=== PATIENT | female | born 1960 | race Caucasian/White ===

== ENCOUNTER → 2016-08-11 | Outpatient (CLI) | payer OTHER ==
[~2016-08-11] MED LIST: ASP325T PO; CANA100T PO; CHOL5000 PO; CLN.1T PO; DOXY100C42 PO; FENO145T2 PO; GEMF600T3 PO; HCT25T PO; IBUP-30 PO; MECL-106 PO; METF1000 PO; METH4TAB PO; METO50TA7 PO; MTF500T PO; NFNEB10T PO; OMEP-10 PO; OXYC-199 PO; PANT40TA3 PO; POTA20TA15 PO; SCOP1PAT TD; VERA240C2 PO; VLS80C PO
--- OUTSIDE RECORDS SUMMARY | 2016-08-11 08:16 | XMS REPORT | Continuity of Care Document ---
Demographics Preferred Language Unknown Marital Status Unknown Taoism Affiliation Unknown Race Unknown Ethnic Group Unknown Author Author [facility] Address Unknown Phone Unavailable Allergies Active Description Code Type Severity Reaction Onset Reported/Identified Relationship to Patient Clinical Status Yes stadol/bad reaction stadol/bad reaction Severe "a bad reaction 11/27/2009 Yes aleve and celebrex aleve and celebrex Mild " facial numbnes 11/27/2009 Yes butorphanol [id number] Drug Allergy Severe "BAD REACTION" 10/17/2015 Yes celecoxib [id number] Drug Allergy Severe FACIAL NUMBNESS 10/17/2015 Yes naproxen [id number] Drug Allergy Severe FACIAL NUMBNESS 10/17/2015 Yes codeine [id number] Drug Allergy Moderate "itch" 10/17/2015 Medications Problems Date Dx Coded Attending Type Code Diagnosis Diagnosed By 08/18/2009 Ot 401.0 10/10/2009 Ot 327.23 10/10/2009 Ot 401.9 10/10/2009 Ot 716.90 10/10/2009 Ot 729.1 10/22/2009 Ot 327.23 11/28/2009 Ot 241.0 11/28/2009 Ot 268.9 11/28/2009 Ot 272.4 11/28/2009 Ot 275.2 11/28/2009 Ot 278.01 11/28/2009 Ot 280.9 11/28/2009 Ot 327.23 11/28/2009 Ot 401.0 11/28/2009 Ot 530.81 11/28/2009 Ot 710.4 11/28/2009 Ot 714.0 11/28/2009 Ot 785.1 11/28/2009 Ot 786.59 11/28/2009 Ot V85.4 03/30/2010 Ot 530.81 03/30/2010 Ot 535.40 03/30/2010 Ot 787.91 05/05/2012 V06.1 TDAP DX 06/25/2013 ROJELIO LONGORIA DO Ot 401.9 07/05/2013 KAYLIE COOPER DO Ot 719.40 07/05/2013 KAYLIE COOPER DO Ot V57.1 07/18/2014 Ot 789.01 07/18/2014 Ot 789.1 07/18/2014 Ot 620.2 07/18/2014 Ot V76.12 07/18/2014 Ot 789.00 07/18/2014 Ot 401.9 07/18/2014 Ot 785.1 07/18/2014 Ot 786.50 07/18/2014 Ot 401.0 07/18/2014 Ot 620.2 07/18/2014 Ot 241.0 07/18/2014 Ot 435.2 07/18/2014 Ot 401.0 07/18/2014 Ot 620.2 07/18/2014 Ot 272.4 07/18/2014 Ot 280.9 07/18/2014 Ot 401.9 07/18/2014 Ot 716.90 07/18/2014 Ot 790.5 07/18/2014 Ot V58.69 07/18/2014 Ot 789.03 07/18/2014 Ot 346.90 07/18/2014 Ot 782.0 07/18/2014 Ot 241.0 07/18/2014 Ot 724.2 07/18/2014 JARROD GRADY APRN Ot 722.4 07/18/2014 KAYLIE COOPER DO Ot 722.91 07/18/2014 KAYLIE COOPER DO Ot 530.5 07/18/2014 KAYLIE COOPER DO Ot 553.3 07/18/2014 KAYLIE COOPER DO Ot 787.20 07/22/2014 JARROD GRADY APRN Ot 722.4 07/22/2014 KAYLIE COOPER DO Ot 722.91 07/22/2014 KAYLIE COOPER DO Ot 530.5 07/22/2014 KAYLIE COOPER DO Ot 553.3 07/22/2014 KAYLIE COOPER DO Ot 787.20 08/21/2014 Ot 719.41 08/21/2014 Ot 840.9 08/21/2014 Ot 923.11 08/21/2014 Ot E000.8 08/21/2014 Ot E885.9 11/05/2014 JARROD GRADY APRN Ot 722.4 11/05/2014 KAYLIE COOPER DO Ot 722.91 11/05/2014 KAYLIE COOPER DO Ot 530.5 11/05/2014 COOPER KAYLIE STOCKTON Ot 553.3 11/05/2014 COOPERKAYLIE PARTIDA DO Ot 787.20 01/17/2015 JARROD GRADY APRN Ot 722.4 01/17/2015 COOPERKAYLIE PARTIDA DO Ot 722.91 01/17/2015 COOPERKAYLIE PARTIDA DO Ot 530.5 01/17/2015 COOPERKAYLIE PARTIDA DO Ot 553.3 01/17/2015 COOPERKAYLIE PARTIDA DO Ot 787.20 01/31/2015 COOPERKAYLIE MAKI DO Ot 733.92 02/04/2015 Ot 401.0 02/04/2015 Ot 620.2 02/04/2015 Ot 272.4 02/04/2015 Ot 280.9 02/04/2015 Ot 401.9 02/04/2015 Ot 716.90 02/04/2015 Ot 790.5 02/04/2015 Ot V58.69 02/04/2015 Ot 789.03 02/04/2015 Ot 346.90 02/04/2015 Ot 782.0 02/04/2015 Ot 241.0 02/04/2015 Ot 724.2 03/13/2015 ROJELIO LONGORIA DO Ot R00.2 03/13/2015 ROJELIO LONGORIA DO Ot R06.00 03/13/2015 ROJELIO LONGORIA DO Ot R42 04/17/2015 ALLISON JARROD L FABRICATION SUPERVISOR Ot R10.9 04/17/2015 JARROD COOPER FABRICATION SUPERVISOR Ot R31.9 05/15/2015 JARROD COOPER FABRICATION SUPERVISOR Ot R10.9 05/15/2015 ROSANA COOPERIA Jm FABRICATION SUPERVISOR Ot R31.9 10/20/2015 KAYLIE COOPER DO Ot R10.13 EPIGASTRIC PAIN 10/21/2015 KAYLIE COOPER DO Ot R10.13 EPIGASTRIC PAIN 10/31/2015 KAYLIE COOPER DO Ot R10.13 EPIGASTRIC PAIN Procedures Results Encounters ACCT No. Visit Date/Time Discharge Status Pt. Type Provider Facility Loc./Unit Complaint [id number] 05/05/2012 13:44:00 05/05/2012 23: 59:59 CLS Outpatient
--- NOTE | 2016-08-11 15:52 | Diagnostic Imaging Report ---
Bilateral knees at 8:36 a.m. INDICATION: Knee pain. Three views of each knee were obtained. FINDINGS: There is no fracture, dislocation or acute bony abnormality evident. The degenerative changes involving the knee joints seen on the previous exam of 01/17/2015 are again visualized and do not appear to have progressed. There is mild narrowing of the medial and lateral compartments of the knee joint bilaterally and at least moderate narrowing of the patellofemoral spaces bilaterally. The small suspected loose body within the left knee joint seen previously is again evident and no different. The soft tissues are unremarkable. There is no significant joint effusion identified. IMPRESSION: There is no evidence for an acute bony abnormality. Furthermore, the degenerative changes involving the knee joint seen on the present exam have not progressed. When compared to the previous study, there has been no significant change. Dictated by: Dictated on workstation # [id number]
== END ==
LOC: RAD 08:12
PROVIDERS: ATTEND Internal Medicine
DX: M25.562 Pain in left knee (principal)

== ENCOUNTER → 2016-09-16 | Outpatient (CLI) | payer OTHER ==
--- NOTE | 2016-09-16 11:25 | Diagnostic Imaging Report ---
PROCEDURE: US Carotid Duplex Bilateral. TECHNIQUE: Multiple real-time grayscale images were obtained over the carotid arteries in various projections bilaterally. Additional duplex Doppler and color Doppler images were also obtained. INDICATION: Dizziness and vertigo. COMPARISON: 07/07/2009. DISCUSSION: Sonographic evaluation of the common and internal carotid arteries and bilateral vertebral arteries was performed with a linear transducer. Images were assessed for grayscale appearance, spectral and color Doppler blood flow. No significant atherosclerotic plaque identified within either carotid bifurcation. Normal flow velocities are present within the bilateral internal and external carotid arteries. Normal antegrade flow within the bilateral vertebral arteries. Normal ICA/CCA ratios measuring 0.85 on the right and 0.80 on the left. IMPRESSION: 1. The bilateral carotid bifurcations are widely patent. Dictated by: Dictated on workstation # [id number]
== END ==
LOC: RAD 09:02
PROVIDERS: ATTEND Nurse Practitioner Family
DX: R42 Dizziness and giddiness (principal)
CPT/HCPCS: 93880

== ENCOUNTER 2016-12-16 14:15 | Outpatient (RCR) | payer OTHER | END 2017-01-18 | disposition still patient (30) | PROVIDERS: ATTEND Nurse Practitioner Family | DX: R42 Dizziness and giddiness (principal); M54.2 Cervicalgia; M54.5 Low back pain; M25.561 Pain in right knee ==

== ENCOUNTER → 2016-12-28 | Outpatient (CLI) | payer OTHER ==
--- NOTE | 2016-12-30 11:48 | Diagnostic Imaging Report ---
Bilateral screening mammogram 2D views with tomosynthesis The current study was also evaluated with a Computer Aided Detection (CAD) system. INDICATION: Screening. No current complaints stated on the questionnaire. COMPARISON: No prior studies are available for comparison. FINDINGS: The breasts are composed of scattered fibroglandular densities. There are scattered benign-appearing and vascular calcifications seen. There is no mass, architectural distortion or suspicious cluster of calcifications. Allowing for technique and positional differences, no suspicious change is seen. IMPRESSION: No significant change. ACR BI-RADS Category 2: Benign findings. Result letter will be mailed to the patient. Note: At least 10% of breast cancer is not imaged by mammography. Dictated by: Dictated on workstation # [id number]
== END ==
LOC: RAD 09:30
PROVIDERS: ATTEND Nurse Practitioner
DX: Z12.31 Encounter for screening mammogram for malignant neoplasm of breast (principal)
CPT/HCPCS: 77067

== ENCOUNTER 2017-02-02 08:30 | Outpatient (RCR) | payer OTHER | END 2017-03-01 11:40 | disposition home or self-care (01) | PROVIDERS: ATTEND Nurse Practitioner Family | DX: R42 Dizziness and giddiness (principal); M54.2 Cervicalgia; M54.5 Low back pain; M25.561 Pain in right knee ==

== ENCOUNTER → 2017-06-15 | Outpatient (CLI) | payer OTHER ==
--- NOTE | 2017-06-15 15:26 | Diagnostic Imaging Report ---
INDICATION: Shoulder pain. EXAMINATION: Right shoulder. Three views were obtained. FINDINGS: There is no fracture, dislocation or acute bony abnormality evident. The glenohumeral joint is fairly well maintained. There is at least moderate degenerative disease of the acromioclavicular joint. The soft tissues are unremarkable. On the transaxial view, the right hilum does seem prominent. This may merely be secondary to superposition of the hilar vessels as opposed to a hilar mass. Even so, I would recommend that a followup PA and lateral chest be performed for further study. IMPRESSION: 1. There is no evidence for an acute bony abnormality. 2. There is at least moderate degenerative disease of the acromioclavicular joint. If there is clinical concern regarding injury to the rotator cuff or labrum, then MRI would be recommended for additional study. 3. The area of increased density about the right hilum may well be secondary to superimposition. The possibility that there is a hilar mass should also be considered. Recommendations as above. Dictated by: Dictated on workstation # [id number]
== END ==
LOC: RAD 14:51
PROVIDERS: ATTEND Nurse Practitioner Family
DX: M19.011 Primary osteoarthritis, right shoulder (principal)
CPT/HCPCS: 73030

== ENCOUNTER → 2017-07-13 | Outpatient (CLI) | payer OTHER ==
[2017-07-13 13:52] LABS: HEMOGLOBIN 10.1 G/DL (11.5-16.0); RED BLOOD COUNT 3.71 10^6/uL (4.35-5.85); RED CELL DISTRIBUTION WIDTH 16.6 % (10.0-14.5); WHITE BLOOD COUNT 10.3 10^3/uL (4.3-11.0)
--- NOTE | 2017-07-13 14:12 | Diagnostic Imaging Report ---
PROCEDURE: US left lower extremity venous. TECHNIQUE: Multiple real-time grayscale images were obtained over the left lower extremity in various projections. Additional duplex Doppler and color Doppler images were also obtained. EXAMINATION: Left low extremity venous Doppler INDICATION: Leg pain and swelling Spectral and color flow imaging of the deep venous system was performed. There are no prior studies available for comparison. There is generally good blood flow and compressibility throughout the deep venous system. There is no evidence for deep venous thrombosis. During the course of the exam a 4.8 x 3.7 CM Doyle's cyst was identified. Furthermore there does appear to be a small amount of fluid in the musculature adjacent to the Doyle's cyst. I suspect that the Doyle's cyst has partially ruptured with extravasation of the cyst contents into the musculature. IMPRESSION: 1. There is no evidence for deep venous thrombosis. 2. There is a Doyle's cyst and there does appear to be some extravasated fluid extending from the cyst into the musculature. This may account for the patient's pain. Clinical followup is recommended. 3. These results were called to SARAH Townsend by our sonologist. Dictated by: Dictated on workstation # [id number]
[2017-07-13 14:15] LABS: ALANINE AMINOTRANSFERASE 23 U/L (0-55); ALBUMIN 3.8 GM/DL (3.2-4.5); ALKALINE PHOSPHATASE 61 U/L (40-136); BILIRUBIN,TOTAL 0.4 MG/DL (0.1-1.0); BUN/CREATININE RATIO 18; CALCIUM 8.8 MG/DL (8.5-10.1); CARBON DIOXIDE 22 MMOL/L (21-32); CHLORIDE 91 MMOL/L (98-107); CREATININE SERUM 0.76 MG/DL (0.60-1.30); GFR ESTIMATED > 60; GLUCOSE 152 MG/DL (70-105); POTASSIUM 3.4 MMOL/L (3.6-5.0); SODIUM 126 MMOL/L (135-145); TOTAL PROTEIN 6.6 GM/DL (6.4-8.2)
--- NOTE | 2017-07-13 14:16 | Diagnostic Imaging Report ---
EXAMINATION: PA and lateral chest at 1:36 PM. INDICATION: Shortness of breath The heart size is within normal limits and stable when compared to the prior exam of 03/13/2015. The thin band of atelectasis/scar formation in the left lung base seen previously is again evident and no different. The lungs are otherwise clear. There is no sign of failure, pneumonia or of a pleural effusion. The recent right shoulder exam performed on 06/15/2017 raised the question of a mass in the right infrahilar region. On this study, there is no evidence for a mass in this area. The density seen on the right shoulder exam is most likely due to superimposition. The mediastinum is not widened. The osseous structures are intact. IMPRESSION: 1. There is no evidence for an acute cardiopulmonary abnormality. 2. There is no sign of a mass in the right infrahilar region. 3. These results were discussed with Rocío at Patricia Vargas's, [facility] office. Dictated by: Dictated on workstation # [id number]
== END ==
LOC: RAD 13:03
PROVIDERS: ATTEND Nurse Practitioner Family
DX: M79.89 Other specified soft tissue disorders (principal); M71.22 Synovial cyst of popliteal space [Baker], left knee; R06.02 Shortness of breath; R07.9 Chest pain, unspecified
CPT/HCPCS: 36415; 71046; 80053; 85027; 85379; 86141

== ENCOUNTER → 2017-07-14 | Outpatient (CLI) | payer OTHER | LOC: LAB 14:09 | PROVIDERS: ATTEND Nurse Practitioner Family | DX: E87.1 Hypo-osmolality and hyponatremia (principal) | CPT/HCPCS: 36415; 83930; 83935 ==

== ENCOUNTER 2017-07-22 16:53 | Emergency (ER) | payer OTHER ==
[~2017-07-22] VITALS: Ht 149.9 cm; Wt 77.2 kg
--- NOTE | 2017-07-22 17:21 | ED Fall/Injury ---
General Chief Complaint: Trauma-Non Activation Stated Complaint: FALL/L KNEE LAC/R SHOULDER PAIN Source: patient Exam Limitations: no limitations History of Present Illness Date Seen by Provider: Jul 22, 2017 Time Seen by Provider: 17:19 Initial Comments To ER with reports of a fall at home after tripping over a new appliance sitting on the floor.. She had just been to the chiropractor. She is recently had frozen shoulder affecting the right arm. He fell landing on the shoulder and now has severe pain in the right shoulder. She has pain and a laceration to the anterior left knee and pain to the right wrist. She did strike her nose on the ground but does not have bloody nose and there was no loss of consciousness. Occurred: just prior to arrival Severity: moderate Injuries/Pain Location: upper extremity, lower extremity Context: tripped Allergies and Home Medications Allergies Coded Allergies: butorphanol (Unverified Allergy, Severe, "BAD REACTION", 10/17/15) celecoxib (Unverified Allergy, Severe, FACIAL NUMBNESS, 10/17/15) naproxen (Unverified Allergy, Severe, FACIAL NUMBNESS, 10/17/15) codeine (Unverified Allergy, Intermediate, "itch", 10/17/15) Home Medications Canagliflozin 100 Mg Tablet, 100 MG PO DAILY, (Reported) Cholecalciferol 5,000 Unit Capsule, 50,000 UNIT PO UD, (Reported) Clonidine Hcl 0.1 Mg Tab, 1 EACH PO NEEDED, (Reported) Gemfibrozil 600 Mg Tablet, 600 MG PO BID, (Reported) Hydrochlorothiazide 25 Mg Tablet, 1 EACH PO DAILY, (Reported) Meclizine HCl 25 Mg Tablet, 25-50 MG PO Q6H, #30 Prescribed by: ROJELIO LONGORIA on 03/13/152030 Metformin HCl 1,000 Mg Tablet, 1,000 MG PO BID, (Reported) Methylprednisolone 4 Mg Tab.ds.pk, 12 MG PO DAILY, (Reported) Nebivolol HCl 10 Mg Tab, 10 MG PO DAILY, (Reported) Pantoprazole Sodium 40 Mg Tablet.dr, 40 MG PO DAILY, (Reported) Scopolamine 1 Each Patch.td72, 1 EACH TD Q72 HOURS, #3 Prescribed by: ROJELIO LONGORIA on 03/13/152030 Valsartan 80 Mg Tab, 320 MG PO DAILY, (Reported) Verapamil Hcl 240 Mg Cap24h.pel, 1 EACH PO DAILY, (Reported) Constitutional: see HPI Eyes: No Symptoms Reported Ears, Nose, Mouth, Throat: no symptoms reported Cardiovascular: no symptoms reported Genitourinary: no symptoms reported Musculoskeletal: see HPI Skin: no symptoms reported Psychiatric/Neurological: No Symptoms Reported Past Kqhnijt-Ffcemu-Lyaist Hx Patient Social History Recent Foreign Travel: No Contact w/Someone Who Travel: No Immunizations Up To Date Tetanus Booster (TDap): Less than 5yrs Seasonal Allergies Seasonal Allergies: Yes Surgeries Surgeries: Abdominal, Section, Eye Surgery, Tonsillectomy, Tubal Ligation Cardiovascular Cardiac Disorders: Hypertension Neurological Neurological Disorders: Headaches /Migraines Reproductive System Hx Reproductive Disorders: No (last two births were c del) 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 Gastrointestinal Gastrointestinal Disorders: Gastroesophageal Reflux Musculoskeletal Musculoskeletal Disorders: Arthritis, Rheumatoid Arthritis Endocrine Endocrine Disorders: Diabetes, Non-Insulin dep HEENT HEENT Disorders: Cataract Physical Exam Vital Signs Vital Signs - First Documented Capillary Refill : General Appearance: WD/WN, no apparent distress HEENT: PERRL/EOMI, normal ENT inspection, TMs normal Neck: non-tender, full range of motion Respiratory: normal breath sounds, no respiratory distress, no accessory muscle use Gastrointestinal: normal bowel sounds, non tender Extremities: other (right arm is in a sling and she complains of severe pain to the right upper humerus and right radius. Capillary refill of the fingertips is less than 3 seconds radial pulses strong. No obvious deformity. She does have a 2 cm laceration V-shaped to the anterior left knee. Bleeding is controlled. This will require closure.) Neurologic/Psychiatric: alert, normal mood/affect, oriented x 3 Skin: normal color, warm/dry Comments Distally, in regards to lower extremities she has a palpable posterior tibial pulse that is equal bilaterally. She has a laceration to the left knee 2 cm in length. While sitting in a chair she is able to extend both legs against my hands with equal strength so based on clinical exam I do not have concern for a surgically significant patellar tendon injury. [place] Coma Score Best Eye Response: (4) Open Spontaneously Best Verbal Response: (5) Oriented Best Motor Response: (6) Obeys Commands Edith Total: 15 Laceration Repair : Wound Location: Lower Extremities Wound Length (cm): 2 Wound's Depth, Shape: sub Q Wound Explored: clean Irrigated w/ Saline (ccs): 50 Anesthesia: 1% Lidocaine Volume Anesthetic (ccs): 3 Suture: Prolene Suture Size: 4-0 Number of Sutures: 6 Layer Closure?: 1 Number Deep Layer Sutures: 0 Progress Area anesthetized with 2 mL of 2% lidocaine without epinephrine. Wound then scrubbed with chlorhexidine/saline solution then irrigated with plain saline. Closed with 6 simple interrupted sutures size 4-0 Prolene. Covered with gauze. Progress/Results/Core Measures Results/Orders My Orders Orders - VIRGILIO CONTRERAS APRN Humerus, Right, 2 Views (07/22/17 17:17) Wrist, Right, 3 Views Or More (07/22/17 17:17) Knee, Left, 3 Views (07/22/17 17:17) Ketorolac Injection (Toradol Injection) (07/22/17 17:30) Hydrocodone/Apap 5/325 Tablet (Lortab 5 (07/22/17 17:30) Dipht,Pertuss(Acell),Tet Adult (Boostrix (07/22/17 17:30) Lidocaine 2% Injection 20 Ml (Xylocaine (07/22/17 17:30) Fentanyl Injection (Sublimaze Injection (07/22/17 18:15) Ct Extremity Upper Right Wo (07/22/17 18:11) Morphine Injection (Morphine Injection (07/22/17 19:15) Morphine Injection (Morphine Injection (07/22/17 20:00) Lorazepam Injection (Ativan Injection) (07/22/17 20:45) Ekg Tracing (07/22/17 20:39) Medications Given in ED Current Medications Medications Dose Ordered Sig/Lee Route Start Time Stop Time Status Last Admin Dose Admin Acetaminophen/ Hydrocodone Bitart 1 tab ONCE ONCE PO 07/22/17 17:30 18 17:31 DC 07/22/17 17:26 1 TAB Diphtheria/ Tetanus/Acell Pertussis 0.5 ml ONCE ONCE IM 18 17:30 18 17:31 DC 18 17:27 0.5 ML Fentanyl Citrate 50 mcg ONCE ONCE IVP 07/22/17 18:15 07/22/17 18:16 DC 07/22/17 18:21 50 MCG Ketorolac Tromethamine 60 mg ONCE ONCE IM 07/22/17 17:30 07/22/17 17:31 DC 07/22/17 17:27 60 MG Morphine Sulfate 4 mg ONCE ONCE IVP 07/22/17 19:15 07/22/17 19:16 DC 07/22/17 19:21 4 MG Vital Signs/I&O Vital Sign - Last 12Hours 07/22/17 07/22/17 17:05 17:05 Temp 97.8 97.8 Pulse 92 92 Resp 18 18 B/P (MAP) 146/85 (105) 146/85 (105) Pulse Ox 98 98 Diagnostic Imaging Diagonstic Imaging: Xray Comments NAME: ROGER DENNIS [facility] REC#: [id number] PT STATUS: REG ER : 1960 PHYSICIAN: VIRGILIO CONTRERAS APRN ADMIT DATE: 07/22/17/ER Signed Date of Exam:07/22/17 KNEE, LEFT, 3 VIEWS INDICATION: Fall, pain COMPARISON: 01/17/2015 TECHNIQUE: 3 radiographs of the left knee dated 07/22/2017. FINDINGS: No acute fracture. Moderate medial and mild lateral joint space narrowing. Mild tricompartmental osteophytosis. No significant joint effusion. The patella appears mildly superiorly positioned when compared to the prior examination, though the prior examination demonstrated the need to be more flexed. No suspicious radiopaque foreign body. IMPRESSION: Slight superior positioning of the patella when compared to the prior examination. Though this could simply be positional in nature, recommend correlation for patellar tendon injury. No acute fracture with mild to moderate degenerative changes. Dictated by: Dictated on workstation # [id number] Dict: 07/22/17 1753 Trans: 07/22/171805 ESA [id number] Interpreted by: YONAS DAVIS MD Electronically signed by: YONAS DAVIS MD 07/22/171805 NAME: ROGER DENNIS [facility] REC#: [id number] PT STATUS: REG ER : 1960 PHYSICIAN: VIRGILIO CONTRERAS APRN ADMIT DATE: 07/22/17/ER Signed Date of Exam:07/22/17 KNEE, LEFT, 3 VIEWS INDICATION: Fall, pain COMPARISON: 01/17/2015 TECHNIQUE: 3 radiographs of the left knee dated 07/22/2017. FINDINGS: No acute fracture. Moderate medial and mild lateral joint space narrowing. Mild tricompartmental osteophytosis. No significant joint effusion. The patella appears mildly superiorly positioned when compared to the prior examination, though the prior examination demonstrated the need to be more flexed. No suspicious radiopaque foreign body. IMPRESSION: Slight superior positioning of the patella when compared to the prior examination. Though this could simply be positional in nature, recommend correlation for patellar tendon injury. No acute fracture with mild to moderate degenerative changes. Dictated by: Dictated on workstation # [id number] Dict: 07/22/171752 Trans: 07/22/171805 [facility] [id number] Interpreted by: YONAS DAVIS MD Electronically signed by: YONAS DAVIS MD 07/22/171805 Departure Communication (Admissions) Communication 1904- I discussed the case with Dr. Ascencio data communications technician for orthopedics Discussed ct findings of inferiorly subluxed fracture fragment. Recommend sling and discharge to home with follow-up in the clinic with Dr. Cabrera in clinic. She does remain neurovascularly intact distally. 1953- achieving pain control has been very difficult. She's been given 5 mg of hydrocodone, 60 mg of intramuscular Toradol, 50 g of IV fentanyl, 4 mg IV morphine and continues to cry. She has a very anxious appearance and speaks about "so many bad things have happened to me lately" referring to the frozen shoulder and influenza that she had a few weeks ago. I did write her a prescription for morphine sulfate immediate release 15 mg by mouth every 4 hours when necessary pain. Quantity of 60. 2039- She is now c/o chest pain. Very tender to pelpation over sternum. Is concerned its her heart. Remains very anxious. Will do EKG, order for lorazepam 0.5 mg iV 2101- EKG is unremarkable for ischemic changes, chest pain much improved, pain is much more tolerable we will discharge to home Progress Notes NAME: ROGER DENNIS MED REC#: [id number] PT STATUS: REG ER : 1960 PHYSICIAN: VIRGILIO CONTRERAS APRN ADMIT DATE: 07/22/17/ER Draft Date of Exam:07/22/17 CT EXTREMITY UPPER RIGHT WO PROCEDURE: CT right upper extremity without contrast. TECHNIQUE: Multiple contiguous axial images were obtained through the right upper extremity without the use of intravenous contrast. Sagittal and coronal reformations were then performed. INDICATION: Fell, shoulder pain As noted on the right humerus exam performed earlier today, there is a complex fracture involving the humeral head and surgical neck of the humerus. The proximal humerus has been displaced medially by nearly the width of the humeral head. The humeral head fracture fragment is also fractured and comminuted. The coronal images do show that the main humeral head fracture fragment is also subluxed inferiorly with respect to the glenoid. No other fracture or acute bony abnormality is appreciated. The soft tissues are generally unremarkable. The right lung apex is clear. IMPRESSION: 1. There is a displaced fracture of the surgical neck of the humerus and a comminuted fracture of the humeral head fracture fragment. The humeral head fracture fragment is also subluxed inferiorly with respect to the glenoid. 2. No other acute bony abnormality is noted. Dictated on workstation # [id number] Dict: 07/22/17 1847 Trans: 07/22/17 1857 ESA [id number] Interpreted by: ZANDRA WADE MD Electronically signed by: Impression Impression: Primary Impression: comminuted proximal humerus fracture Disposition: 01 HOME, SELF-CARE Condition: Stable Departure-Patient Inst. Decision time for Depature: 19:06 Referrals: KAYLIE COOPER DO (PCP) Primary Care Physician JARROD COOPER DNP (Family) Primary Care Physician Patient Instructions: Shoulder Fracture Add. Discharge Instructions: 1. Call Dr. Cabrera on Tuesday to make an appointment to be seen as soon as possible 2. Wear the sling at all times except when showering. Return to the emergency room for any intolerable pain, numbness of the fingertips or other concerns. Have the stitches removed from your left knee in 7-10 days. All discharge instructions reviewed with patient and/or family. Voiced understanding. Copy Copies To 1: DAVON CABRERA DO; KAYLIE COOPER PETER J APRN Jul 22, 2017 17:21
[2017-07-22] MEDS ORDERED: KETOROLAC 60 MG/2 ML VIAL IM ONE (17:30)
[2017-07-22] MEDS ORDERED: LIDOCAINE 2% 20 ML (XYLOCAINE) VIAL INJ ONE (17:30)
[2017-07-22] MEDS ORDERED: HYDROcodone/APAP 5 MG/325 MG (LORTAB) TAB PO ONE (17:30)
[2017-07-22] MEDS ORDERED: TETANUS,DIPTH,PERTUSS P/F (BOOSTRIX) 0.5 ML VIAL IM ONE (17:30)
--- NOTE | 2017-07-22 17:59 | Diagnostic Imaging Report ---
INDICATION: Fall, pain COMPARISON: 01/17/2015 TECHNIQUE: 3 radiographs of the left knee dated 07/22/2017. FINDINGS: No acute fracture. Moderate medial and mild lateral joint space narrowing. Mild tricompartmental osteophytosis. No significant joint effusion. The patella appears mildly superiorly positioned when compared to the prior examination, though the prior examination demonstrated the need to be more flexed. No suspicious radiopaque foreign body. IMPRESSION: Slight superior positioning of the patella when compared to the prior examination. Though this could simply be positional in nature, recommend correlation for patellar tendon injury. No acute fracture with mild to moderate degenerative changes. Dictated by: Dictated on workstation # [id number]
--- NOTE | 2017-07-22 18:01 | Diagnostic Imaging Report ---
INDICATION: Fall, pain. COMPARISON: None available. TECHNIQUE: Three radiographs of the right wrist dated July 22, 2017. FINDINGS: Examination is slightly limited as no true lateral radiograph is obtained. No acute fracture or dislocation. No destructive osseous process. Carpal alignment is well maintained. Scapholunate distance is within normal limits. Minimal scattered degenerative changes. No suspicious radiopaque foreign body. IMPRESSION: No acute osseous abnormality with minimal degenerative changes. Dictated by: Dictated on workstation # [id number]
--- NOTE | 2017-07-22 18:02 | Diagnostic Imaging Report ---
EXAMINATION: Right humerus at 0559 PM INDICATION: Fell, arm pain Two views were obtained. There is a displaced fracture of the surgical neck of the humerus. The distal fracture fragment is displaced medially by the width of the humeral head. The humeral head fracture fragment has also been fractured and there is a suggestion that the humeral head fracture is now subluxed inferiorly with respect to the glenoid. If further evaluation of the extent of the injury to the humerus is desired, then CT would be recommended. No other fracture or acute bony abnormality is noted. IMPRESSION: 1. There is a complex displaced fracture involving the humeral head and surgical neck of the humerus. There also appears to be subluxation of the humeral head fracture fragment with respect to the glenoid. Recommendations as above. 2. There is no acute bony abnormality noted otherwise. Dictated by: Dictated on workstation # [id number]
[2017-07-22] MEDS ORDERED: fentaNYL INJECTION 100 MCG/2 ML AMP IVP ONE (18:15)
--- NOTE | 2017-07-22 18:58 | Diagnostic Imaging Report ---
PROCEDURE: CT right upper extremity without contrast. TECHNIQUE: Multiple contiguous axial images were obtained through the right upper extremity without the use of intravenous contrast. Sagittal and coronal reformations were then performed. INDICATION: Fell, shoulder pain As noted on the right humerus exam performed earlier today, there is a complex fracture involving the humeral head and surgical neck of the humerus. The proximal humerus has been displaced medially by nearly the width of the humeral head. The humeral head fracture fragment is also fractured and comminuted. The coronal images do show that the main humeral head fracture fragment is also subluxed inferiorly with respect to the glenoid. No other fracture or acute bony abnormality is appreciated. The soft tissues are generally unremarkable. The right lung apex is clear. IMPRESSION: 1. There is a displaced fracture of the surgical neck of the humerus and a comminuted fracture of the humeral head fracture fragment. The humeral head fracture fragment is also subluxed inferiorly with respect to the glenoid. 2. No other acute bony abnormality is noted. Dictated by: Dictated on workstation # [id number]
[2017-07-22] MEDS ORDERED: morphine INJ 10 MG/ML 1ML (SYR OR VIAL) IVP ONE ×2 (19:15→20:00)
[2017-07-22] MEDS ORDERED: LORazepam INJ 2 MG/ML (ATIVAN) VIAL IVP ONE (20:45)
[2017-07-22 21:08] VITALS: BP 123/71
== END 2017-07-22 21:08 | disposition home or self-care (01) ==
LOC: EDUNIT# 16:53 → ER 16:55
DX: S42.291A Other displaced fracture of upper end of right humerus, initial encounter for closed fracture (principal); I10 Essential (primary) hypertension; G43.909 Migraine, unspecified, not intractable, without status migrainosus; K21.9 Gastro-esophageal reflux disease without esophagitis; M06.9 Rheumatoid arthritis, unspecified; E11.9 Type 2 diabetes mellitus without complications; Z23 Encounter for immunization; Z88.8 Allergy status to other drugs, medicaments and biological substances; Z88.5 Allergy status to narcotic agent; Z79.84 Long term (current) use of oral hypoglycemic drugs; Z79.52 Long term (current) use of systemic steroids; Z87.59 Personal history of other complications of pregnancy, childbirth and the puerperium; Z98.51 Tubal ligation status; Z90.89 Acquired absence of other organs; W01.0XXA Fall on same level from slipping, tripping and stumbling without subsequent striking against object, initial encounter; Y92.009 Unspecified place in unspecified non-institutional (private) residence as the place of occurrence of the external cause
CPT/HCPCS: 12001; 73060; 73110; 73200; 73562; 90715; 93005

== ENCOUNTER 2017-08-01 09:18 | Emergency (ER) | payer OTHER ==
[~2017-08-01] VITALS: Ht 149.9 cm; Wt 78.5 kg
[~2017-08-01 09:18] MED LIST changes: -CATHETER FLUSH 10 ML SYR IV PRN; -REGADENOSON 0.4 MG/5 ML SYR (LEXISCAN) IV ONE
--- OUTSIDE RECORDS SUMMARY | 2017-08-01 09:24 | XMS REPORT | Continuity of Care Document ---
Demographics Preferred Language Unknown Marital Status Unknown Restoration Affiliation Unknown Race Unknown Ethnic Group Unknown Author Author [facility] Address Unknown Phone Unavailable Allergies Active Description Code Type Severity Reaction Onset Reported/Identified Relationship to Patient Clinical Status Yes stadol/bad reaction stadol/bad reaction Severe "a bad reaction 2009 Yes aleve and celebrex aleve and celebrex Mild "facial numbnes 11/27/2009 Yes butorphanol [id number] Drug Allergy Severe "BAD REACTION" 10/17/2015 Yes celecoxib [id number] Drug Allergy Severe FACIAL NUMBNESS 10/17/2015 Yes naproxen [id number] Drug Allergy Severe FACIAL NUMBNESS 10/17/2015 Yes codeine [id number] Drug Allergy Moderate "itch" 10/17/2015 Medications There is no data. Problems Date Dx Coded Attending Type Code Diagnosis Diagnosed By 05/05/1139 JARROD COOPERP Ot M25.561 PAIN IN RIGHT KNEE 05/05/1139 JARROD COOPERP Ot M54.2 CERVICALGIA 05/05/1139 JARROD COOPERP Ot M54.5 LOW BACK PAIN 05/05/1139 JARROD COOPERP Ot R42 DIZZINESS AND GIDDINESS 08/18/2009 Ot 401.0 10/10/2009 Ot 327.23 10/10/2009 [...] DX 06/25/2013 ROJELIO LONGORIA DO Ot 401.9 HYPERTENSION NOS 07/05/2013 KAYLIE COOPER DO Ot 719.40 JOINT PAIN-UNSPEC 07/05/2013 KAYLIE COOPER DO Ot V57.1 PHYSICAL THERAPY NEC 07/18/2014 Ot 789.01 07/18/2014 Ot 789.1 07/18/2014 [...] DO Ot 553.3 07/22/2014 KAYLIE COOPER DO J Ot 787.20 08/21/2014 Ot 719.41 08/21/2014 Ot 840.9 08/21/2014 Ot 923.11 08/21/2014 Ot E000.8 08/21/2014 Ot E885.9 11/05/2014 JARROD GRADY REPAIRER MAINTENANCE BUILDING Ot 722.4 11/05/2014 COOPERSHANTHI STOCKTON KAYLIE David Ot 722.91 11/05/2014 ALLISON STOCKTON KAYLIE David Ot 530.5 11/05/2014 COOPERSHANTHI STOCKTON KAYLIE David Ot 553.3 11/05/2014 COOPERSHANTHI STOCKTON KAYLIE David Ot 787.20 01/17/2015 JARROD GRADY REPAIRER MAINTENANCE BUILDING Ot 722.4 01/17/2015 COOPER DO, KAYLIE David Ot 722.91 01/17/2015 ALLISON STOCKTON KAYLIE David Ot 530.5 01/17/2015 COOPERSHANTHI STOCKTON KAYLIE David Ot 553.3 01/17/2015 ALLISON STOCKTON KAYLIE David Ot 787.20 01/31/2015 ALLISON STOCKTON KAYLIE David Ot 733.92 02/04/2015 Ot 401.0 02/04/2015 Ot 620.2 02/04/2015 Ot 272.4 02/04/2015 Ot 280.9 02/04/2015 Ot 401.9 02/04/2015 Ot 716.90 02/04/2015 Ot 790.5 02/04/2015 Ot V58.69 02/04/2015 Ot 789.03 02/04/2015 Ot 346.90 02/04/2015 Ot 782.0 02/04/2015 Ot 241.0 02/04/2015 Ot 724.2 03/13/2015 ROJELIO LONGORIA DO Ot R00.2 PALPITATIONS 03/13/2015 ROJELIO LONGORIA DO Ot R06.00 DYSPNEA, UNSPECIFIED 03/13/2015 ROJELIO LONGORIA DO Ot R42 DIZZINESS AND GIDDINESS 04/17/2015 JARROD COOPER PAINT SUPERVISOR Ot R10.9 04/17/2015 JARROD COOPER PAINT SUPERVISOR Ot R31.9 05/15/2015 JARROD COOPER PAINT SUPERVISOR Ot R10.9 05/15/2015 JARROD COOPER PAINT SUPERVISOR Ot R31.9 10/20/2015 KAYLIE COOPER DO Ot R10.13 EPIGASTRIC PAIN 10/21/2015 KAYLIE COOPER DO Ot R10.13 EPIGASTRIC PAIN 10/31/2015 KAYLIE COOPER DO Ot R10.13 EPIGASTRIC PAIN 08/12/2016 KAYLIE COOPER DO Ot M25.562 PAIN IN LEFT KNEE 09/08/2016 KAYLIE COOPER DO Ot M25.562 PAIN IN LEFT KNEE 09/20/2016 JARROD COOPER PAINT SUPERVISOR Ot R42 DIZZINESS AND GIDDINESS 10/13/2016 LOU COOPERRICIA L PAINT SUPERVISOR Ot R42 DIZZINESS AND GIDDINESS 10/22/2016 ROSANA COOPERIA Jm PAINT SUPERVISOR Ot M25.561 PAIN IN RIGHT KNEE 10/22/2016 JARROD COOPER L PAINT SUPERVISOR Ot M54.2 CERVICALGIA 10/22/2016 ROSANA COOPERIA L PAINT SUPERVISOR Ot M54.5 LOW BACK PAIN 10/22/2016 ROSANA COOPERIA L PAINT SUPERVISOR Ot R42 DIZZINESS AND GIDDINESS 10/22/2016 COOPER, JARROD L PAINT SUPERVISOR Ot M25.561 PAIN IN RIGHT KNEE 10/22/2016 OLU COOPERRICIA L PAINT SUPERVISOR Ot M54.2 CERVICALGIA 10/22/2016 COOPER, JARROD L PAINT SUPERVISOR Ot M54.5 LOW BACK PAIN 10/22/2016 ROSANA COOPERIA L PAINT SUPERVISOR Ot R42 DIZZINESS AND GIDDINESS 12/01/2016 ROSANA COOPERIA L PAINT SUPERVISOR Ot M25.561 PAIN IN RIGHT KNEE 12/01/2016 OLU COOPERRICIA L PAINT SUPERVISOR Ot M54.2 CERVICALGIA 12/01/2016 COOPER, JARROD L PAINT SUPERVISOR Ot M54.5 LOW BACK PAIN 12/01/2016 ROSANA COOPERIA L PAINT SUPERVISOR Ot R42 DIZZINESS AND GIDDINESS 12/29/2016 LISETH BENITEZ PAINT SUPERVISOR Ot Z12.31 ENCNTR SCREEN MAMMOGRAM FOR MALIGNANT NE 01/06/2017 ROSANA COOPERIA L PAINT SUPERVISOR Ot M25.561 PAIN IN RIGHT KNEE 01/06/2017 COOPER, JARROD L PAINT SUPERVISOR Ot M54.2 CERVICALGIA 01/06/2017 COOPER, JARROD L PAINT SUPERVISOR Ot M54.5 LOW BACK PAIN 01/06/2017 COOPER, JARROD L PAINT SUPERVISOR Ot R42 DIZZINESS AND GIDDINESS 01/18/2017 COOPER, JARROD L PAINT SUPERVISOR Ot M25.561 PAIN IN RIGHT KNEE 01/18/2017 COOPER, JARROD L PAINT SUPERVISOR Ot M54.2 CERVICALGIA 01/18/2017 COOPER, JARROD L PAINT SUPERVISOR Ot M54.5 LOW BACK PAIN 01/18/2017 COOPER, JARROD L PAINT SUPERVISOR Ot R42 DIZZINESS AND GIDDINESS 01/29/2017 LISETH BENITEZ PAINT SUPERVISOR Ot Z12.31 ENCNTR SCREEN MAMMOGRAM FOR MALIGNANT NE 02/01/2017 OLU COOPERRICIA L PAINT SUPERVISOR Ot M25.561 PAIN IN RIGHT KNEE 02/01/2017 OLU COPOERRICIA L PAINT SUPERVISOR Ot M54.2 CERVICALGIA 02/01/2017 COOPER, JARROD L PAINT SUPERVISOR Ot M54.5 LOW BACK PAIN 02/01/2017 COOPERROSANA PARTIDAIA L PAINT SUPERVISOR Ot R42 DIZZINESS AND GIDDINESS 02/03/2017 COOPER, JARROD L PAINT SUPERVISOR Ot M25.561 PAIN IN RIGHT KNEE 02/03/2017 COOPER, JARROD L PAINT SUPERVISOR Ot M54.2 CERVICALGIA 02/03/2017 COOPER, JARROD L PAINT SUPERVISOR Ot M54.5 LOW BACK PAIN 02/03/2017 COOPER, JARROD L PAINT SUPERVISOR Ot R42 DIZZINESS AND GIDDINESS 03/01/2017 OLU COOPERRICIA L PAINT SUPERVISOR Ot M25.561 PAIN IN RIGHT KNEE 03/01/2017 COOPER, JARROD L PAINT SUPERVISOR Ot M54.2 CERVICALGIA 03/01/2017 COOPER, JARROD L PAINT SUPERVISOR Ot M54.5 LOW BACK PAIN 03/01/2017 COOPER, JARROD L PAINT SUPERVISOR Ot R42 DIZZINESS AND GIDDINESS 06/29/2017 ROSANA COOPERIA L PAINT SUPERVISOR Ot M19.011 PRIMARY OSTEOARTHRITIS, RIGHT SHOULDER 07/14/2017 OLU COOPERRICIA L PAINT SUPERVISOR Ot R10.9 UNSPECIFIED ABDOMINAL PAIN 07/14/2017 COOPERJARROD MAKI Jm PAINT SUPERVISOR Ot R31.9 HEMATURIA, UNSPECIFIED 07/14/2017 KAYLIE COOPER DO Ot R10.13 EPIGASTRIC PAIN 07/14/2017 KAYLIE COOPER DO Ot M25.562 PAIN IN LEFT KNEE 07/14/2017 JARROD COOPER PAINT SUPERVISOR Ot R42 DIZZINESS AND GIDDINESS 07/14/2017 LISETH BENITEZ PAINT SUPERVISOR Ot Z12.31 ENCNTR SCREEN MAMMOGRAM FOR MALIGNANT NE 07/14/2017 JARROD COOPER PAINT SUPERVISOR Ot M19.011 PRIMARY OSTEOARTHRITIS, RIGHT SHOULDER 07/14/2017 COOPERJARROD PARTIDA PAINT SUPERVISOR Ot M71.22 SYNOVIAL CYST OF POPLITEAL SPACE [HOWELL] 07/14/2017 COOPERJARROD PARTIDA PAINT SUPERVISOR Ot M79.89 OTHER SPECIFIED SOFT TISSUE DISORDERS 07/14/2017 JARROD COOPER PAINT SUPERVISOR Ot R06.02 SHORTNESS OF BREATH 07/14/2017 COOPER JARROD Oneal PAINT SUPERVISOR Ot R07.9 CHEST PAIN, UNSPECIFIED 07/15/2017 JARROD COOPER PAINT SUPERVISOR Ot E87.1 HYPO-OSMOLALITY AND HYPONATREMIA Procedures There is no data. Results Test Result Range Automated blood complete blood count (hemogram) panel - 07/13/17 13:48 Blood leukocytes automated count (number/volume) 10.3 10*3/uL 4.3-11.0 Blood erythrocytes automated count (number/volume) 3.71 10*6/uL 4.35-5.85 Venous blood hemoglobin measurement (mass/volume) 10.1 g/dL 11.5-16.0 Blood hematocrit (volume fraction) 31 % 35-52 Automated erythrocyte mean corpuscular volume 83 [foz_us] 80-99 Automated erythrocyte mean corpuscular hemoglobin (mass per erythrocyte) 27 pg 25-34 Automated erythrocyte mean corpuscular hemoglobin concentration measurement ( mass/volume) 33 g/dL 32-36 Automated erythrocyte distribution width ratio 16.6 % 10.0-14.5 Automated blood platelet count (count/volume) 253 10*3/uL 130-400 Automated blood platelet mean volume measurement 8.0 [foz_us] 7.4-10.4 Fibrin D-dimer FEU measurement in platelet poor plasma (mass/volume) - 13:48 Fibrin D-dimer FEU measurement in platelet poor plasma (mass/volume) 0.78 ug/mL 0.00-0.49 Comprehensive metabolic panel - 07/13/17 13:48 Serum or plasma sodium measurement (moles/volume) 126 mmol/L 135-145 Serum or plasma potassium measurement (moles/volume) 3.4 mmol/L 3.6-5.0 Serum or plasma chloride measurement (moles/volume) 91 mmol/L 98-107 Carbon dioxide 22 mmol/L 21-32 Serum or plasma anion gap determination (moles/volume) 13 mmol/L 5-14 Serum or plasma urea nitrogen measurement (mass/volume) 14 mg/dL 7-18 Serum or plasma creatinine measurement (mass/volume) 0.76 mg/dL 0.60-1.30 Serum or plasma urea nitrogen/creatinine mass ratio 18 NRG Serum or plasma creatinine measurement with calculation of estimated glomerular filtration rate > NRG Serum or plasma glucose measurement (mass/volume) 152 mg/dL 70-105 Serum or plasma calcium measurement (mass/volume) 8.8 mg/dL 8.5-10.1 Serum or plasma total bilirubin measurement (mass/volume) 0.4 mg/dL 0.1-1.0 Serum or plasma alkaline phosphatase measurement (enzymatic activity/volume) 61 U/L 40-136 Serum or plasma aspartate aminotransferase measurement (enzymatic activity/ volume) 15 U/L 5-34 Serum or plasma alanine aminotransferase measurement (enzymatic activity/volume ) 23 U/L 0-55 Serum or plasma protein measurement (mass/volume) 6.6 g/dL 6.4-8.2 Serum or plasma albumin measurement (mass/volume) 3.8 g/dL 3.2-4.5 Serum or plasma C reactive protein measurement (mass/volume) - 07/13/17 13:48 Serum or plasma C reactive protein measurement (mass/volume) 0.31 mg /dL 0.00-0.50 Urine osmolality - 07/14/17 14:23 Urine osmolality 275 % 250-1200 Serum osmolality - 07/14/17 14:23 Serum osmolality 264 % 275-295 Urine osmolality - 07/14/17 14:23 Urine osmolality 275 % 250-1200 Encounters ACCT No. Visit Date/Time Discharge Status Pt. Type Provider Facility Loc./Unit Complaint [id number] 05/05/2012 13:44:00 05/05/2012 23:59:59 CLS Outpatient [id number] 07/22/2017 16:55:00 07/22/2017 21:08:00 DIS Emergency VIRGILIO CONTRERAS REPAIRER MAINTENANCE BUILDING [facility] ER FALL/L KNEE LAC/R SHOULDER PAIN [id number] 07/15/2017 07:00:00 07/15/2017 23:59:59 CLS Preadmit COOPER JARROD L PAINT SUPERVISOR [facility] CARD CHEST PAIN,SOB [id number] 07/14/2017 14:09:00 07/14/2017 23:59:59 CLS Outpatient COOPER, JARROD L PAINT SUPERVISOR [facility] LAB E87.1 [id number] 07/13/2017 13:03:00 07/13/2017 23:59:59 CLS Outpatient COOPER, JARROD L PAINT SUPERVISOR [facility] RAD CALF PAIN/SWELLING ,CHEST PAIN,SOB [id number] 06/15/2017 14:51:00 06/15/2017 23:59:59 CLS Outpatient COOPER, JARROD L PAINT SUPERVISOR [facility] RAD M25.511 [id number] 02/02/2017 08:30:00 03/01/2017 11:40:00 DIS Outpatient COOPER, JARROD L PAINT SUPERVISOR [facility] REHAB VERTIGO; CERVICAL PAIN;LUMBAR PAIN;RKNEE PAIN [id number] 12/16/2016 14:15:00 01/18/2017 00:01:00 DIS Outpatient COOPER, JARROD L PAINT SUPERVISOR [facility] REHAB VERTIGO; CERVICAL PAIN;LUMBAR PAIN;RKNEE PAIN [id number] 12/28/2016 09:30:00 12/28/2016 23:59:59 CLS Outpatient LISETH BENITEZ PAINT SUPERVISOR [facility] RAD SCREENING Z12.31 [id number] 09/16/2016 09:02:00 09/16/2016 23:59:59 CLS Outpatient COOPER, JARROD L PAINT SUPERVISOR [facility] RAD DIZZINESS,VERTIGO [id number] 08/11/2016 08:12:00 08/11/2016 23:59:59 CLS Outpatient COOPER KAYLIE STOCKTON [facility] RAD KNEE PAIN [id number] 10/17/2015 09:06:00 10/17/2015 23:59:59 CLS Outpatient COOPER KAYLIE STOCKTON [facility] CARD R10.13 EPIGASTRIC PAIN [id number] 04/15/2015 12:04:00 04/15/2015 23:59:59 CLS Outpatient JARROD COOPER Jm PAINT SUPERVISOR [facility] RAD HEMATURIA [id number] 03/13/2015 17:50:00 03/13/2015 20:56:00 DIS Emergency ROJELIO LONGORIA DO [facility] ER SOA,IRREGULAR HEART BEAT [id number] 01/17/2015 14:56:00 01/17/2015 23:59:59 CLS Outpatient ALLISON STOCKTONKAYLIE [facility] RAD [id number] 01/30/2014 09:39:00 01/30/2014 23:59:59 CLS Outpatient COOPER KAYLIE [facility] RAD [id number] 07/19/2013 09:11:00 07/19/2013 23:59:59 CLS Outpatient COOPER KAYLIE [facility] RAD [id number] 06/29/2013 11:06:00 07/05/2013 09:00:00 DIS Outpatient ALLISON STOCKTON KAYLIE Frankie [facility] REHAB ARTHROLYIAS, DECONDITIONING [id number] 06/28/2013 08:30:00 06/28/2013 23:59:59 CLS Outpatient RIDINGSJARROD Sultana ADAIRN [facility] RAD [id number] 06/25/2013 00:42:00 06/25/2013 02:00:00 DIS Emergency SWATI ROJELIO STOCKTON [facility] ER HIGH BP [id number] 08/21/2014 12:02:00 Document Registration [id number] 07/18/2014 15:32:00 Document Registration [id number] 07/18/2014 15:32:00 Document Registration [id number] 07/18/2014 15:32:00 Document Registration [id number] 05/20/2011 10:01:00 Document Registration [id number] 05/13/2011 13:55:00 Document Registration [id number] 10/01/2010 11:10:00 Document Registration [id number] 07/14/2010 11:46:00 Document Registration [id number] 04/07/2010 13:08:00 Document Registration [id number] 03/30/2010 06:15:00 Document Registration [id number] 11/27/2009 09:15:00 Document Registration [id number] 10/21/2009 20:08:00 Document Registration [id number] 10/20/2009 12:54:00 Document Registration [id number] 10/09/2009 21:14:00 Document Registration [id number] 08/19/2009 00:00:00 Document Registration [id number] 07/07/2009 09:20:00 Document Registration [id number] 07/07/2009 09:13:00 Document Registration [id number] 05/29/2009 10:30:00 Document Registration [id number] 05/23/2009 12:28:00 Document Registration [id number] 04/10/2009 08:11:00 Document Registration [id number] 04/02/2009 13:04:00 Document Registration [id number] 02/24/2009 09:41:00 Document Registration
[2017-08-01 09:55] VITALS: BP 119/61
== END 2017-08-01 09:46 | disposition home or self-care (01) ==
LOC: EDUNIT# 09:18 → ER 09:20
DX: S81.012D Laceration without foreign body, left knee, subsequent encounter (principal); X58.XXXD Exposure to other specified factors, subsequent encounter
CPT/HCPCS: 99281

== ENCOUNTER → 2017-08-01 | Outpatient (CLI) | payer OTHER ==
[~2017-08-01] VITALS: Ht 149.9 cm; Wt 78.5 kg
[~2017-08-01] MED LIST changes: +CATHETER FLUSH 10 ML SYR IV PRN; +REGADENOSON 0.4 MG/5 ML SYR (LEXISCAN) IV ONE; -SCOP1PAT TD; +SCOP1PAT11 TD
[2017-08-01 08:14] VITALS: BP 178/92
--- NOTE | 2017-08-03 11:40 | STRESS TEST ---
DATE OF SERVICE: 08/01/2017 PROCEDURE: Resting and post regadenoson technetium-99m Tetrofosmin SPECT CT imaging. ORDERING PHYSICIAN: Patricia Encinas APRN. PRIMARY PHYSICIAN: Patricia Encinas APRN. CLINICAL DIAGNOSES: Chest pain and shortness of breath. Baseline images were carried out after injection of 10.14 mCi of technetium-99m Tetrofosmin. This was followed by 0.4 mg regadenoson and 31.1 mCi technetium-99m Tetrofosmin for stress imaging. The electrocardiographic portion of the study is reported separately by Dr. Vargas. Review of images at rest and following stress does not indicate any significant perfusion defects consistent with any significant myocardial ischemia or infarction. Gated images show normal global left ventricular systolic function with normal regional wall motion. Left ventricular ejection fraction is calculated to be 82%. Left ventricular end-diastolic volume is 42 mL. TID is absent (1.06). CONCLUSIONS: 1. No evidence of any significant myocardial ischemia or infarction on this study. 2. Normal to hyperdynamic left ventricular systolic function with an ejection fraction of 82%. 3. Normal left ventricular cavity size. Job ID: [id number] DocumentID: [id number] Dictated Date: 08/01/2017 19:00:12 Comparative Sociology Professor Date: 08/01/2017 22:18:01 Dictated By: HAN LEMON MD, MA, FACP, FACC,
== END ==
LOC: CARD 06:59
PROVIDERS: ATTEND Nurse Practitioner Family
DX: R07.9 Chest pain, unspecified (principal); R06.02 Shortness of breath
CPT/HCPCS: 78452; 93017

== ENCOUNTER 2017-12-01 10:00 | Outpatient (RCR) | payer OTHER ==
[~2017-12-01 10:00] MED LIST changes: -GEMF600T3 PO; +GEMF600T4 PO; -METF1000 PO; +METF10002 PO
== END 2017-12-01 12:00 | disposition home or self-care (01) ==
PROVIDERS: ATTEND Orthopaedic Surgery
DX: M25.511 Pain in right shoulder (principal); Z47.89 Encounter for other orthopedic aftercare

== ENCOUNTER → 2018-01-16 | Outpatient (CLI) | payer OTHER | LOC: RAD 07:54 | PROVIDERS: ATTEND Orthopaedic Surgery | DX: M17.12 Unilateral primary osteoarthritis, left knee (principal); M71.22 Synovial cyst of popliteal space [Baker], left knee; Z53.8 Procedure and treatment not carried out for other reasons ==

== ENCOUNTER → 2018-01-20 | Outpatient (CLI) | payer OTHER ==
--- NOTE | 2018-01-21 10:37 | Diagnostic Imaging Report ---
PROCEDURE: MRI left joint lower extremity without contrast. TECHNIQUE: Multiplanar, multisequence non contrast-enhanced MRI of the left lower extremity was accomplished. INDICATION: Anterior left knee pain. 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 EXAMINATION: MRI of the left lower extremity 01/20/2018 FINDINGS: The extensor mechanism is intact. The ACL and PCL appear unremarkable. The MCL is intact although slightly thickened. There is adjacent edema both medially and laterally which could be due to a type II sprain, correlate with history. The lateral collateral ligamentous complex is intact. The lateral meniscus demonstrates diffuse internal high signal throughout the anterior horn. This is consistent with a tear. It extends in a horizontal fashion into the posterior horn, as well. The medial meniscus contains diffuse internal high signal within the posterior horn. This appears to predominantly represent myxoid degeneration. A discrete tear is not seen. There is a moderate to large joint effusion which contains multiple internal hypointensities consistent with multiple loose bodies. There is a large multiseptated cystic lesion involving much of the posterior aspect of the knee. Its visualized aspects are most consistent with a Doyle's cyst. However, this is incompletely imaged along its proximal aspect. Some of the cystic changes extend laterally and lie posterior to the neurovascular bundle, likely communicating with the more inferior medial Doyle's cyst, less likely a separate lesion. Edema along the posterior calf likely due to recent leakage of the cystic lesion. Other cystic changes immediately posterior to the joint itself, likely small ganglia. The cartilaginous and patellofemoral joint space demonstrates complete loss with narrowing of the joint space noted. Cartilage in the lateral joint compartment is mildly thinned with mild to moderate thinning irregularity of the cartilage in the medial compartment. IMPRESSION: 1. Ligaments and tendons intact although a type II sprain of the MCL is possible versus edema secondary to the cystic changes in the posterior knee. Correlate with history and symptoms. 2. Tear of the posterior horn and much of the body and anterior horn of the lateral meniscus with the medial meniscus intact. 3. Tricompartment degenerative findings with loose bodies throughout the joint as well as a joint effusion. 4. Large heterogeneous complex appearing Doyle's cyst. However, this is incompletely imaged along its proximal aspect (see above discussion). Further imaging could be performed if no intervention is performed as clinically warranted to include more proximal aspects of this area. Dictated by: Dictated on workstation # [id number]
== END ==
LOC: RAD 15:54
PROVIDERS: ATTEND Orthopaedic Surgery
DX: S83.282A Other tear of lateral meniscus, current injury, left knee, initial encounter (principal); M17.12 Unilateral primary osteoarthritis, left knee; M71.22 Synovial cyst of popliteal space [Baker], left knee
CPT/HCPCS: 73721

== ENCOUNTER 2018-02-01 13:02 | Outpatient (RCR) | payer OTHER ==
[2018-01-25 15:02] LABS: BASOPHILS % (AUTO) 0 % (0-10); EOSINOPHILS # (AUTO) 0.1 10^3/uL (0.0-0.3); EOSINOPHILS % (AUTO) 1 % (0-10); HEMATOCRIT 32 % (35-52); HEMOGLOBIN 10.1 G/DL (11.5-16.0); LYMPHOCYTES # (AUTO) 1.7 X 10^3 (1.0-4.0); LYMPHOCYTES % (AUTO) 14 % (12-44); MEAN CORPUSCULAR HEMOGLOBIN 25 PG (25-34); MEAN CORPUSCULAR HGB CONC 32 G/DL (32-36); MEAN CORPUSCULAR VOLUME 79 FL (80-99); MEAN PLATELET VOLUME 8.3 FL (7.4-10.4); MONOCYTES # (AUTO) 0.9 X 10^3 (0.0-1.0); MONOCYTES % (AUTO) 7 % (0-12); NEUTROPHILS # (AUTO) 9.2 X 10^3 (1.8-7.8); NEUTROPHILS % (AUTO) 78 % (42-75); PLATELET COUNT 308 10^3/uL (130-400); RED BLOOD COUNT 4.01 10^6/uL (4.35-5.85); RED CELL DISTRIBUTION WIDTH 19.1 % (10.0-14.5); WHITE BLOOD COUNT 11.8 10^3/uL (4.3-11.0)
[~2018-02-01 13:02] MED LIST changes: +FERRIC CARBOXYMALTOSE (CANCER) 750 MG in NS (IVPB) CANCER CENTER 250 ML IV SCH; +METF-399 PO; -METF10002 PO
== END 2018-02-03 | disposition home or self-care (01) ==
LOC: ONC 13:02
PROVIDERS: ATTEND Internal Medicine Hematology & Oncology
DX: D64.9 Anemia, unspecified (principal); D80.1 Nonfamilial hypogammaglobulinemia; I11.9 Hypertensive heart disease without heart failure; I10 Essential (primary) hypertension; M33.20 Polymyositis, organ involvement unspecified; Z79.4 Long term (current) use of insulin; Z79.899 Other long term (current) drug therapy
CPT/HCPCS: 36415; 85025; 96365; 99214

== ENCOUNTER 2018-05-12 09:36 | Outpatient (RCR) | payer OTHER ==
[~2018-05-12 09:36] MED LIST changes: -FERRIC CARBOXYMALTOSE (CANCER) 750 MG in NS (IVPB) CANCER CENTER 250 ML IV SCH; -GEMF600T4 PO; +GEMF600T8 PO
[2018-05-12 09:45] LABS: HEMATOCRIT 42 % (35-52); HEMOGLOBIN 14.2 G/DL (11.5-16.0); MEAN CORPUSCULAR HEMOGLOBIN 32 PG (25-34); MEAN CORPUSCULAR HGB CONC 34 G/DL (32-36); MEAN CORPUSCULAR VOLUME 94 FL (80-99); MEAN PLATELET VOLUME 8.7 FL (7.4-10.4); NEUTROPHILS % (AUTO) 74 % (42-75); PLATELET COUNT 267 10^3/uL (130-400); RED CELL DISTRIBUTION WIDTH 16.4 % (10.0-14.5); WHITE BLOOD COUNT 11.4 10^3/uL (4.3-11.0)
[2018-05-12 09:46] LABS: BASOPHILS % (AUTO) 0 % (0-10); EOSINOPHILS # (AUTO) 0.1 10^3/uL (0.0-0.3); EOSINOPHILS % (AUTO) 1 % (0-10); LYMPHOCYTES # (AUTO) 1.9 X 10^3 (1.0-4.0); LYMPHOCYTES % (AUTO) 17 % (12-44); MONOCYTES # (AUTO) 0.9 X 10^3 (0.0-1.0); MONOCYTES % (AUTO) 8 % (0-12); NEUTROPHILS # (AUTO) 8.4 X 10^3 (1.8-7.8)
== END 2018-08-10 | disposition home or self-care (01) ==
LOC: ONC 09:36
PROVIDERS: ATTEND Internal Medicine Hematology & Oncology
DX: D80.1 Nonfamilial hypogammaglobulinemia (principal); D50.9 Iron deficiency anemia, unspecified; I10 Essential (primary) hypertension; E11.9 Type 2 diabetes mellitus without complications; M33.20 Polymyositis, organ involvement unspecified; R01.1 Cardiac murmur, unspecified; Z79.4 Long term (current) use of insulin; Z79.899 Other long term (current) drug therapy
CPT/HCPCS: 36415; 82728; 82784; 83540; 85025; 99213

== ENCOUNTER 2019-01-25 15:12 | Emergency (ER) | payer OTHER ==
[~2019-01-25] VITALS: Ht 149.9 cm; Wt 78.5 kg
--- NOTE | 2019-01-25 15:26 | ED Chest Pain ---
General Stated Complaint: CHEST TIGHTNESS AND HIGH BP Source: patient Exam Limitations: no limitations History of Present Illness Date Seen by Provider: Jan 25, 2019 Time Seen by Provider: 15:24 Initial Comments Ambulatory to room 3 with reports of chest tightness high blood pressure and shortness of breath constant since 1:30 PM today after taking her first dose of amlodipine. Patient had symptoms of general malaise, was sent by primary care to [place] emergency room on Tuesday of this week, admitted for tonight and was released yesterday she was started on carvedilol and Norvasc. She does report that she feels very anxious right now. Timing/Duration: changing over time Severity/Quality: moderate Location: central Radiation: no radiation Activities at Onset: none ASA po TOP CLEANER: No NTG SL TOP CLEANER: No Associated Symptoms: No nausea/vomiting; shortness of breath Allergies and Home Medications Allergies Coded Allergies: butorphanol (Unverified Allergy, Severe, "BAD REACTION", 10/17/15) celecoxib (Unverified Allergy, Severe, FACIAL NUMBNESS, 10/17/15) naproxen (Unverified Allergy, Severe, FACIAL NUMBNESS, 10/17/15) codeine (Unverified Allergy, Intermediate, "itch", 10/17/15) Home Medications Amoxicillin/Potassium Clav 1 Each Tablet, 1 EACH PO BID Prescribed by: VIRGILIO CONTRERAS on 01/25/191903 Canagliflozin 100 Mg Tablet, 100 MG PO DAILY, (Reported) Cholecalciferol 5,000 Unit Capsule, 50,000 UNIT PO UD, (Reported) Clonidine Hcl 0.1 Mg Tab, 1 EACH PO NEEDED, (Reported) Gemfibrozil 600 Mg Tablet, 600 MG PO BID, (Reported) Hydrochlorothiazide 25 Mg Tablet, 1 EACH PO DAILY, (Reported) Meclizine HCl 25 Mg Tablet, 25-50 MG PO Q6H Prescribed by: ROJELIO LONGORIA on 03/13/152030 Metformin HCl 1,000 Mg Tablet, 1,000 MG PO BID, (Reported) Methylprednisolone 4 Mg Tab.ds.pk, 12 MG PO DAILY, (Reported) Nebivolol HCl 10 Mg Tab, 10 MG PO DAILY, (Reported) Pantoprazole Sodium 40 Mg Tablet.dr, 40 MG PO DAILY, (Reported) Scopolamine 1 Each Patch.td72, 1 EACH TD Q72 HOURS Prescribed by: ROJELIO LONGORIA on 03/13/152030 Valsartan 80 Mg Tab, 320 MG PO DAILY, (Reported) Verapamil Hcl 240 Mg Cap24h.pel, 1 EACH PO DAILY, (Reported) Patient Home Medication List Home Medication List Reviewed: Yes Review of Systems Review of Systems Constitutional: see HPI EENTM: No Symptoms Reported Respiratory: No Symptoms Reported Cardiovascular: No Symptoms Reported Gastrointestinal: See HPI Genitourinary: No Symptoms Reported Musculoskeletal: no symptoms reported Skin: no symptoms reported Psychiatric/Neurological: No Symptoms Reported Endocrine: No Symptoms Reported Hematologic/Lymphatic: No Symptoms Reported Past Nuxufoh-Qmabqg-Pwutla Hx Patient Social History 2nd Hand Smoke Exposure: No Recent Foreign Travel: No Contact w/Someone Who Travel: No Recent Hopitalizations: Yes Immunizations Up To Date Tetanus Booster (TDap): More than 5yrs Seasonal Allergies Seasonal Allergies: Yes Past Medical History Surgeries: Yes (HERNIA REPAIR) Abdominal, Section, Eye Surgery, Tonsillectomy, Tubal Ligation Respiratory: No Cardiac: Yes Hypertension Neurological: Yes Headaches /Migraines Reproductive Disorders: No (last two births were c del) 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 0.0oz. 78.154820cc; 28.12 BMI Method:Stated General Appearance: No Apparent Distress, WD/WN HEENT: PERRL/EOMI, TMs Normal Respiratory: No Accessory Muscle Use, No Respiratory Distress Cardiovascular: Regular Rate, Rhythm, Normal Peripheral Pulses Gastrointestinal: Normal Bowel Sounds, Non Tender, Soft Extremity: Normal Capillary Refill, Normal Inspection Neurologic/Psychiatric: Alert, Oriented x3 Skin: Normal Color, Warm/Dry Procedures/Interventions Suture Size: 4-0 Progress/Results/Core Measures Results/Orders Lab Results Laboratory Tests Test 01/25/19 15:45 01/25/19 18:21 Range/Units White Blood Count 9.3 4.3-11.0 10^3/uL Red Blood Count 4.11 L 4.35-5.85 10^6/uL Hemoglobin 13.1 11.5-16.0 G/DL Hematocrit 38 35-52 % Mean Corpuscular Volume 92 80-99 FL Mean Corpuscular Hemoglobin 32 25-34 PG Mean Corpuscular Hemoglobin Concent 35 32-36 G/DL Red Cell Distribution Width 15.2 H 10.0-14.5 % Platelet Count 267 130-400 10^3/uL Mean Platelet Volume 8.3 7.4-10.4 FL Neutrophils (%) (Auto) 67 42-75 % Lymphocytes (%) (Auto) 22 12-44 % Monocytes (%) (Auto) 9 0-12 % Eosinophils (%) (Auto) 2 0-10 % Basophils (%) (Auto) 0 0-10 % Neutrophils # (Auto) 6.2 1.8-7.8 X 10^3 Lymphocytes # (Auto) 2.0 1.0-4.0 X 10^3 Monocytes # (Auto) 0.9 0.0-1.0 X 10^3 Eosinophils # (Auto) 0.2 0.0-0.3 10^3/uL Basophils # (Auto) 0.0 0.0-0.1 10^3/uL Prothrombin Time 12.8 12.2-14.7 SEC INR Comment 0.9 0.8-1.4 Activated Partial Thromboplast Time 32 24-35 SEC D-Dimer 1.29 H 0.00-0.49 UG/ML Sodium Level 133 L 135-145 MMOL/L Potassium Level 3.7 3.6-5.0 MMOL/L Chloride Level 100 98-107 MMOL/L Carbon Dioxide Level 21 21-32 MMOL/L Anion Gap 12 5-14 MMOL/L Blood Urea Nitrogen 8 7-18 MG/DL Creatinine 0.73 0.60-1.30 MG/DL Estimat Glomerular Filtration Rate > 60 BUN/Creatinine Ratio 11 Glucose Level 108 H 70-105 MG/DL Calcium Level 9.7 8.5-10.1 MG/DL Corrected Calcium 9.3 8.5-10.1 MG/DL Magnesium Level 1.9 1.6-2.4 MG/DL Total Bilirubin 0.4 0.1-1.0 MG/DL Aspartate Amino Transf (AST/SGOT) 26 5-34 U/L Alanine Aminotransferase (ALT/SGPT) 40 0-55 U/L Alkaline Phosphatase 72 40-136 U/L Myoglobin 47.5 10.0-92.0 NG/ML Troponin I < 0.028 < 0.028 <0.028 NG/ML B-Type Natriuretic Peptide 30.5 <100.0 PG/ML Total Protein 7.8 6.4-8.2 GM/DL Albumin 4.5 3.2-4.5 GM/DL My Orders Orders - VIRGILIO CONTRERAS [employer]ON[employer] HELPER Cbc With Automated Diff (01/25/19 15:14) Magnesium (01/25/19 15:14) Chest 1 View, Ap/Pa Only (01/25/19 15:14) Ekg Tracing (01/25/19 15:14) Cardiac Profile 1 (01/25/19 15:14) Comprehensive Metabolic Panel (01/25/19 15:14) Myoglobin Serum (01/25/19 15:14) Protime With Inr (01/25/19 15:14) Partial Thromboplastin Time (01/25/19 15:14) O2 (01/25/19 15:14) Monitor-Rhythm Ecg Trace Only (01/25/19 15:14) Lipid Panel (01/26/19 06:00) Ed Iv/Invasive Line Start (01/25/19 15:14) Fibrin Degradation Products (01/25/19 15:21) Lorazepam Injection (Ativan Injection) (01/25/19 15:30) Aspirin Chewable Tablet (Baby Aspirin Ch (01/25/19 15:30) Nitroglycerin 0.4 Mg Btl 25's (Nitrostat (01/25/19 15:30) BNP (01/25/19 15:49) Ct Angio Chest W (01/25/19 16:28) Hydralazine Injection (Apresoline Inject (01/25/19 16:45) Iohexol Injection (Omnipaque 350 Mg/Ml 1 (01/25/19 17:00) Di Iv Start (Assessment) .IV start (01/25/19 16:59) Received Contrast (Hold Metformin- Contr (01/25/19 17:00) Ns (Ivpb) (Sodium Chloride 0.9% Ivpb Bag (01/25/19 17:00) Troponin I (01/25/19 18:05) Amoxicillin/Clavulanate Tablet (Augmenti (01/25/19 19:15) Medications Given in ED Current Medications Medications Dose Ordered Sig/Lee Route Start Time Stop Time Status Last Admin Dose Admin Aspirin 324 mg ONCE ONCE PO 01/25/19 15:30 01/25/19 15:31 DC 01/25/19 15:44 324 MG Hydralazine HCl 10 mg ONCE ONCE IV 01/25/19 16:45 01/25/19 16:46 DC 01/25/19 16:44 10 MG Iohexol 100 ml ONCE ONCE IV 01/25/19 17:00 01/25/19 17:01 DC 01/25/19 17:37 100 ML Lorazepam 0.5 mg ONCE PRN IVP 01/25/19 15:30 01/25/19 15:45 0.5 MG Sodium Chloride 100 ml ONCE ONCE IV 01/25/19 17:00 01/25/19 17:01 DC 01/25/19 17:37 80 ML Vital Signs/I&O 01/25/19 01/25/19 01/25/19 15:21 15:29 15:29 Temp 97.6 Resp 18 B/P (MAP) Pulse Ox 99 99 O2 Delivery Room Air Room Air FiO2 99 Diagnostic Imaging Diagonstic Imaging: CT Comments NAME: ROGER DENNIS [facility] REC#: [id number] PT STATUS: REG ER : 1960 PHYSICIAN: VIRGILIO CONTRERAS APRN ADMIT DATE: 01/25/19/ER Signed Date of Exam:01/25/19 CT ANGIO CHEST W PROCEDURE: CT angiography of the chest with contrast. TECHNIQUE: Multiple contiguous axial images were obtained through the chest after uneventful bolus administration of intravenous contrast. 3D reconstructed CTA MIP acquisitions were also performed. Auto Exposure Controls were utilized during the CT exam to meet ALARA standards for radiation dose reduction. INDICATION: Chest tightness. Discomfort. FINDINGS: There is a patchy subpleural infiltrate seen in the left lower lobe laterally. No consolidations are seen. There is no effusion or pneumothorax. There is cardiomegaly with no failure. There is no aortic aneurysm or dissection. There is no pulmonary embolus. There is small hiatal hernia. There is no acute bony abnormality. IMPRESSION: There are patchy nodular tree in bud type of infiltrates seen in the left lower lobe which are likely inflammatory/infectious in nature. There is no pulmonary embolus. Dictated by: Dictated on workstation # [id number] Dict: 01/25/191737 Trans: 01/25/191747 [facility] [id number] Interpreted by: ABELINO ULRICH MD Electronically signed by: ABELINO ULRICH MD 01/25/191747 Departure Communication (Admissions) Patient states that she was taken off of the Bystolic and started on carvedilol and Norvasc. She feels like the carvedilol has caused her to be shaky, she does not like taking this and felt like the nebivolol well for her without adverse effect. She would like to restart it. Impression Primary Impression: Dyspnea Qualified Codes: R06.00 - Dyspnea, unspecified Additional Impression: Pneumonia Qualified Codes: J18.1 - Lobar pneumonia, unspecified organism Disposition: HOME, SELF-CARE Condition: Stable Departure-Patient Inst. Decision time for Depature: 18:14 Referrals: KAYLIE COOPER DO (PCP) Primary Care Physician JARROD COOPER DNP (Family) Primary Care Physician Patient Instructions: Chest Pain That Is Not Caused by the Heart (DC) Add. Discharge Instructions: 1. Stop the carvedilol, replace it with the bystolic. Follow up with your doctor next week. Scripts Nebivolol HCl (Bystolic) 10 Mg Tab 10 MG PO DAILY, #20 TAB Prov: VIRGILIO CONTRERAS APRN 01/25/19 Amoxicillin/Potassium Clav (Augmentin 875-125 Tablet) 1 Each Tablet 1 EACH PO BID, #14 TAB Prov: VIRGILIO CONTRERAS [employer] HELPER 01/25/19 VIRGILIO CONTRERAS APRN Jan 25, 2019 15:26
[2019-01-25] MEDS ORDERED: NITROGLYCERIN 0.4 MG SL TABS BTL 25'S SL PRN (15:30)
[2019-01-25] MEDS ORDERED: LORazepam INJ 2 MG/ML (ATIVAN) VIAL IVP PRN (15:30)
[2019-01-25] MEDS ORDERED: ASPIRIN 81 MG CHEW (CHILDREN'S ASA) PO ONE (15:30)
--- NOTE | 2019-01-25 15:49 | Diagnostic Imaging Report ---
INDICATION: Chest tightness, wheezing and hypertension. Recent Hospital discharge. EXAMINATION: Single view of the chest was obtained. COMPARISON: Study of 07/13/2017. FINDINGS: There has been interval replacement of the right shoulder. The heart size and pulmonary vascularity are within normal limits. The patient's lungs appear clear. The lung volume is symmetric and normal. No infiltrate, effusion or pneumothorax. IMPRESSION: No acute appearing cardiopulmonary abnormality. Dictated by: Dictated on workstation # [id number]
[2019-01-25 15:53] LABS: BASOPHILS % (AUTO) 0 % (0-10); EOSINOPHILS # (AUTO) 0.2 10^3/uL (0.0-0.3); EOSINOPHILS % (AUTO) 2 % (0-10); HEMATOCRIT 38 % (35-52); HEMOGLOBIN 13.1 G/DL (11.5-16.0); LYMPHOCYTES % (AUTO) 22 % (12-44); MEAN CORPUSCULAR HEMOGLOBIN 32 PG (25-34); MEAN CORPUSCULAR HGB CONC 35 G/DL (32-36); MEAN CORPUSCULAR VOLUME 92 FL (80-99); MEAN PLATELET VOLUME 8.3 FL (7.4-10.4); MONOCYTES # (AUTO) 0.9 X 10^3 (0.0-1.0); MONOCYTES % (AUTO) 9 % (0-12); NEUTROPHILS # (AUTO) 6.2 X 10^3 (1.8-7.8); NEUTROPHILS % (AUTO) 67 % (42-75); PLATELET COUNT 267 10^3/uL (130-400); RED CELL DISTRIBUTION WIDTH 15.2 % (10.0-14.5); WHITE BLOOD COUNT 9.3 10^3/uL (4.3-11.0)
[2019-01-25 16:11] LABS: ALANINE AMINOTRANSFERASE 40 U/L (0-55); ALBUMIN 4.5 GM/DL (3.2-4.5); ALKALINE PHOSPHATASE 72 U/L (40-136); BILIRUBIN,TOTAL 0.4 MG/DL (0.1-1.0); BUN/CREATININE RATIO 11; CALCIUM 9.7 MG/DL (8.5-10.1); CARBON DIOXIDE 21 MMOL/L (21-32); CHLORIDE 100 MMOL/L (98-107); CREATININE SERUM 0.73 MG/DL (0.60-1.30); GFR ESTIMATED > 60; GLUCOSE 108 MG/DL (70-105); MAGNESIUM 1.9 MG/DL (1.6-2.4); POTASSIUM 3.7 MMOL/L (3.6-5.0); SODIUM 133 MMOL/L (135-145); TOTAL PROTEIN 7.8 GM/DL (6.4-8.2)
[2019-01-25 16:12] LABS: INR 0.9 (0.8-1.4); PROTHROMBIN TIME PATIENT 12.8 SEC (12.2-14.7)
[2019-01-25] MEDS ORDERED: hydrALAZINE (APESOLINE) 20 MG/ML VIAL IV ONE (16:45)
[2019-01-25] MEDS ORDERED: NS 100 ML (IVPB) BAG IV ONE (17:00)
[2019-01-25] MEDS ORDERED: IOHEXOL 350 MG/ML 100 ML (OMNIPAQUE 350) VIAL IV ONE (17:00)
[2019-01-25] MEDS ORDERED: HOLD METFORMIN - RECEIVED CONTRAST 20 ML VIAL IV SCH (17:00)
--- NOTE | 2019-01-25 17:44 | Diagnostic Imaging Report ---
PROCEDURE: CT angiography of the chest with contrast. TECHNIQUE: Multiple contiguous axial images were obtained through the chest after uneventful bolus administration of intravenous contrast. 3D reconstructed CTA MIP acquisitions were also performed. Auto Exposure Controls were utilized during the CT exam to meet ALARA standards for radiation dose reduction. INDICATION: Chest tightness. Discomfort. FINDINGS: There is a patchy subpleural infiltrate seen in the left lower lobe laterally. No consolidations are seen. There is no effusion or pneumothorax. There is cardiomegaly with no failure. There is no aortic aneurysm or dissection. There is no pulmonary embolus. There is small hiatal hernia. There is no acute bony abnormality. IMPRESSION: There are patchy nodular tree in bud type of infiltrates seen in the left lower lobe which are likely inflammatory/infectious in nature. There is no pulmonary embolus. Dictated by: Dictated on workstation # [id number]
[2019-01-25] MEDS ORDERED: AMOX-358 PO (19:04)
[2019-01-25] MEDS ORDERED: NFNEB10T PO (19:11)
[2019-01-25] MEDS ORDERED: AUGMENTIN 875 MG TAB (AMOXICILLIN/CLAVULANATE) PO SCH (19:15)
[2019-01-25 19:38] VITALS: BP 144/88
== END 2019-01-25 19:38 | disposition home or self-care (01) ==
LOC: EDUNIT# 15:12 → ER 15:14
DX: J18.9 Pneumonia, unspecified organism (principal); I10 Essential (primary) hypertension; E11.9 Type 2 diabetes mellitus without complications; G43.909 Migraine, unspecified, not intractable, without status migrainosus; K21.9 Gastro-esophageal reflux disease without esophagitis; M06.9 Rheumatoid arthritis, unspecified; E66.9 Obesity, unspecified; Z88.8 Allergy status to other drugs, medicaments and biological substances; Z88.5 Allergy status to narcotic agent; Z88.6 Allergy status to analgesic agent; Z79.84 Long term (current) use of oral hypoglycemic drugs; Z79.52 Long term (current) use of systemic steroids; Z90.89 Acquired absence of other organs; Z98.51 Tubal ligation status
CPT/HCPCS: 36415; 71045; 71275; 80053; 83735; 83874; 83880; 84484; 85025; 85379; 85610; 85730; 93005; 93041

== ENCOUNTER → 2019-02-01 | Outpatient (CLI) | payer OTHER ==
[~2019-02-01] MED LIST changes: +AMOX-358 PO
--- NOTE | 2019-02-01 11:51 | Diagnostic Imaging Report ---
INDICATION: PNEUMONIA. COMPARISON: 01/25/2019. FINDINGS: Frontal and lateral views of the chest demonstrate normal heart size and pulmonary vascularity. The lungs are clear. There are no signs of infiltrate, pleural effusions or pneumothoraces. The visualized osseous structures show no acute abnormalities. IMPRESSION: 1. No acute process. No signs of infiltrates, effusions, or pneumothoraces. Dictated by: Dictated on workstation # [id number]
== END ==
LOC: RAD 11:19
PROVIDERS: ATTEND Nurse Practitioner Family
DX: J15.8 Pneumonia due to other specified bacteria (principal); N30.81 Other cystitis with hematuria; I10 Essential (primary) hypertension
CPT/HCPCS: 71046

== ENCOUNTER → 2019-08-08 | Outpatient (CLI) | payer BC ==
[~2019-08-08] MED LIST changes: -MECL-106 PO; +MECL-149 PO
--- NOTE | 2019-08-08 10:36 | Diagnostic Imaging Report ---
INDICATION: Chronic left hip pain. TECHNIQUE: 2 views of the left hip. CORRELATION STUDY: None FINDINGS: Images of the hip demonstrate no evidence for acute fracture. Alignment is anatomic. No periarticular erosion or destructive change. The femoral head acetabular relationship is unremarkable. The bony trabecular pattern is intact. IMPRESSION: 1. Negative for acute bony abnormality of the left hip. Dictated by: Dictated on workstation # [id number]
--- NOTE | 2019-08-08 10:36 | Diagnostic Imaging Report ---
INDICATION: Shoulder pain. TECHNIQUE: Three views of the left shoulder. CORRELATION STUDY: None. FINDINGS: No acute fracture or dislocation. Well-corticated bone density at the acromioclavicular joint appears to be likely chronic. Prior traumatic change not excluded. Joint spaces demonstrate minimal narrowing glenohumeral joint, otherwise overall fairly well-maintained. Soft tissues appearing unremarkable. IMPRESSION: 1. Negative for acute bony abnormality about the shoulder. Mild narrowing at the glenohumeral joint. Dictated by: Dictated on workstation # [id number]
== END ==
LOC: RAD 09:26
PROVIDERS: ATTEND Nurse Practitioner Family
DX: M25.552 Pain in left hip (principal); M25.812 Other specified joint disorders, left shoulder
CPT/HCPCS: 73030; 73502

== ENCOUNTER → 2019-08-13 | Outpatient (CLI) | payer BC ==
--- NOTE | 2019-08-13 09:13 | Diagnostic Imaging Report ---
INDICATION: Muscle spasms. Patient also complains of abdominal pain. PROCEDURE: Ultrasound abdomen complete. TECHNIQUE: Multiple real-time grayscale images were obtained of the abdomen in various projections. Liver is enlarged approximately 20 cm. There is diffuse increased echogenicity throughout the liver consistent with hepatic steatosis. No discrete liver mass is identified. There is an area of focal sparing adjacent to the gallbladder. No gallstones are seen. No wall thickening or biliary ductal dilatation is identified. There is a cyst in the region of the pancreatic head approximately 2 cm in size. This is similar to CT angiogram chest study from 01/25/2019. Spleen is normal in size 11.6 cm. Aorta is nonaneurysmal. IVC was obscured by bowel gas. Right kidney is unremarkable. There is a rounded hypoechoic structure superior to the left kidney, indeterminate. This is approximately 2.3 cm in size. There is no ascites. IMPRESSION: 1. Hepatomegaly and hepatic steatosis. 2. No evidence of cholelithiasis or acute cholecystitis. 3. Stable pancreatic head cyst since CT study from 01/25/2019. 4. 0.3 cm rounded hypoechoic structure just superior to the left kidney, indeterminate. Dedicated CT of the abdomen with and without contrast would be recommended for further evaluation. Dictated by: Dictated on workstation # [id number]
== END ==
LOC: RAD 08:04
PROVIDERS: ATTEND Nurse Practitioner Family
DX: M62.838 Other muscle spasm (principal); K76.0 Fatty (change of) liver, not elsewhere classified; K86.2 Cyst of pancreas
CPT/HCPCS: 76700

== ENCOUNTER → 2019-08-21 | Outpatient (CLI) | payer BC ==
--- NOTE | 2019-08-21 13:50 | Diagnostic Imaging Report ---
INDICATION: Routine screening. COMPARISON: 12/28/2016. TECHNIQUE: 2D and 3D bilateral screening mammography was performed with CAD. FINDINGS: Scattered fibroglandular densities are identified bilaterally. Benign parenchymal and vascular calcifications are identified bilaterally. No mass or malignant appearing microcalcifications are seen. The axillae are unremarkable. IMPRESSION: No mammographic features suspicious for malignancy are identified. ACR BI-RADS Category 2: Benign findings. Result letter will be mailed to the patient. Note: At least 10% of breast cancer is not imaged by mammography. Dictated by: Dictated on workstation # [id number]
== END ==
LOC: RAD 10:38
PROVIDERS: ATTEND Nurse Practitioner Family
DX: Z12.31 Encounter for screening mammogram for malignant neoplasm of breast (principal); Z01.419 Encounter for gynecological examination (general) (routine) without abnormal findings
CPT/HCPCS: 77067

== ENCOUNTER → 2019-09-04 | Outpatient (CLI) | payer BC ==
[~2019-09-04] MED LIST changes: +HOLD METFORMIN - RECEIVED CONTRAST 20 ML VIAL IV SCH; +IOHEXOL 350 MG/ML 100 ML (OMNIPAQUE 350) VIAL IV ONE; +NS 100 ML (IVPB) BAG IV ONE
[2019-09-04 08:54] LABS: ALANINE AMINOTRANSFERASE 25 U/L (0-55); ALBUMIN 4.4 GM/DL (3.2-4.5); ALKALINE PHOSPHATASE 49 U/L (40-136); BILIRUBIN,TOTAL 0.4 MG/DL (0.1-1.0); BUN/CREATININE RATIO 21; CALCIUM 9.3 MG/DL (8.5-10.1); CARBON DIOXIDE 18 MMOL/L (21-32); CHLORIDE 97 MMOL/L (98-107); CREATININE SERUM 0.77 MG/DL (0.60-1.30); GFR ESTIMATED > 60; GLUCOSE 81 MG/DL (70-105); SODIUM 132 MMOL/L (135-145); TOTAL PROTEIN 7.1 GM/DL (6.4-8.2)
--- NOTE | 2019-09-04 15:33 | Diagnostic Imaging Report ---
PROCEDURE: CT abdomen with and without contrast. TECHNIQUE: Multiple contiguous axial CT images of the abdomen were obtained prior to and after intravenous administration of iodinated contrast. Auto Exposure Controls were utilized during the CT exam to meet ALARA standards for radiation dose reduction. INDICATION: Periumbilical abdominal pain. Follow-up of abnormal ultrasound findings. COMPARISON: Comparison is made to recent abdominal ultrasound performed on 08/13/2019, as well as prior CT angiography chest performed on 01/25/[address] abdomen and pelvis performed on 04/15/2015. FINDINGS: LOWER THORAX: Lung bases are clear. The visualized heart is normal in size. There is prominent calcification of the mitral annulus. LIVER: There is diffuse mild low attenuation of the hepatic parenchyma, with focal areas of sparing adjacent to the gallbladder. No focal hepatic lesion is seen. GALLBLADDER: Gallbladder is normal. No gallstones or gallbladder wall thickening is demonstrated. BILE DUCTS: No biliary ductal dilatation. SPLEEN: Normal. Incidental note is made of a tiny accessory spleen/splenule in the inferior splenic hilum, stable on multiple prior exams. PANCREAS: There is a homogeneous low-attenuation structure in the pancreatic head which measures 1.9 x 2.0 x 1.8 cm (transverse x AP x superior-inferior). This lesion measures slightly greater in size than was seen on 01/25/2019 (1.8 x 1.8 x 1.3 cm by my measurements). Communication with the main pancreatic duct cannot be established on the basis of this exam. ADRENAL GLANDS: No nodules. KIDNEYS AND UPPER URETERS: No hydronephrosis. Kidneys enhance symmetrically. There is a subcentimeter hypodensity in the anterior aspect of the upper pole of the right kidney, too small to characterize, but likely representing a cyst. No suspicious mass. No abnormality in the visualized upper ureters. There is no focal abnormality adjacent to the left kidney to correspond to findings on recent ultrasound STOMACH/UPPER GI TRACT: Stomach is physiologically-distended. No bowel obstruction. Visualized bowel demonstrates no inflammatory changes. PERITONEUM AND RETROPERITONEUM: No pneumoperitoneum. No abdominal free fluid or loculated collection. LYMPH NODES: No lymphadenopathy. VESSELS: Mild atherosclerotic calcification. Abdominal aorta is nonaneurysmal. No venous thrombosis. ABDOMINAL WALL: Unremarkable. BONES: No acute osseous abnormality. IMPRESSION: No acute abdominal pathology. No abnormal findings adjacent to or involving the left kidney to correspond to findings on recent ultrasound. The sonographic finding was likely artifactual/technical in nature, relating to the contours of the kidney. As mentioned on prior ultrasound report, there is a cystic structure in the pancreatic head. Although measuring slightly larger, this has not changed significantly in size compared to CT scan performed on 01/25/2019 (less than 20% growth). Differential diagnostic considerations include benign or low-grade neoplasm such as side-branch intraductal papillary mucinous neoplasm and non-neoplastic cyst. A follow-up pancreatic protocol CT is suggested in 6 months to assess for stability, per ACR Incidental Findings Committee white paper recommendations for management of incidental pancreatic cysts (JACR 2017;14:911-923). Gastroenterology consult should also be considered. Hepatic steatosis. Dictated by: Dictated on workstation # [id number]
== END ==
LOC: RAD 08:13
PROVIDERS: ATTEND Nurse Practitioner Family
DX: R10.11 Right upper quadrant pain (principal); K76.0 Fatty (change of) liver, not elsewhere classified
CPT/HCPCS: 36415; 74170; 80053; 82565; 84520

== ENCOUNTER → 2019-09-13 | Outpatient (CLI) | payer BC ==
[~2019-09-13] MED LIST changes: -HOLD METFORMIN - RECEIVED CONTRAST 20 ML VIAL IV SCH; -IOHEXOL 350 MG/ML 100 ML (OMNIPAQUE 350) VIAL IV ONE; -NS 100 ML (IVPB) BAG IV ONE
== END ==
LOC: CARD 08:22
PROVIDERS: ATTEND Nurse Practitioner Family
DX: I34.8 Other nonrheumatic mitral valve disorders (principal); R01.1 Cardiac murmur, unspecified
CPT/HCPCS: 93306

== ENCOUNTER → 2020-04-21 | Outpatient (CLI) | payer BC ==
[~2020-04-21] MED LIST changes: -PANT40TA3 PO; +PANT40TA52 PO
--- NOTE | 2020-04-21 15:10 | Diagnostic Imaging Report ---
EXAM: MRI right foot without contrast. DATE: April 21, 2020. INDICATION: 59-year-old female, foot mass. COMPARISON: None. TECHNIQUE: Multiple noncontrast MRI sequences at the level of the foot were obtained. FINDINGS: There are limitations for assessment of malignancy given the lack of intravenous contrast. There is a very large predominantly cystic appearing mass with thin internal septations and lobulations at the dorsal aspect of the foot centered in the region of the tarsometatarsal articulations. The mass measures approximately 6.1 x 3.5 cm in short axis and 5.8 cm in long axis. There are areas of low T2 signal within the proximal and more volar aspect of the mass, perhaps best illustrated on axial T2 fat saturation sequence image 10 and adjacent sequential images. There is nonspecific generalized dorsal subcutaneous edema of the foot. The Lisfranc ligament proper is intact. The visualized portions of the peroneal tendons, posterior flexor tendons, and anterior extensor tendons are intact. The visualized portions of the plantar fascia are intact. The navicular is inferiorly dislocated relative to the cuneiforms. The head of the talus is inferiorly subluxed. The distal talus is directly contacting the medial and middle cuneiforms with low-level degenerative related marrow changes. There is no identified normal fat signal in the sinus tarsi. There is no large joint effusion. IMPRESSION: 1. Large predominantly cystic mass in the dorsal subcutaneous tissues of the right foot measuring 6.1 x 3.5 x 5.8 cm in size. There are areas of septation and low T2 signal. Although this potentially could reflect a large ganglion cyst, other cystic masses including nonspecific fluid collection or neoplastic etiology are considered. There are limitations of evaluation given lack of intravenous contrast administration. 2. The navicular is inferiorly dislocated relative to the cuneiforms. The head of the talus is inferiorly subluxed. 3. No acute fracture, bone contusion, or other concerning bone marrow signal abnormality. 4. No large joint effusion. Dictated by: Dictated on workstation # [id number]
--- NOTE | 2020-04-21 15:14 | Diagnostic Imaging Report ---
EXAM: MRI left foot without contrast. DATE: April 21, 2020. INDICATION: 59-year-old female, cystic mass of the foot. COMPARISON: None. TECHNIQUE: Multiple noncontrast MRI sequences of the foot were obtained. FINDINGS: There are limitations for assessment of neoplasm and evaluation for malignancy as well as for identification of focal fluid collections given the lack of intravenous contrast. There is lobulated fluid signal along the extensor digitorum longus tendons which may reflect a complicated tenosynovitis and abnormal fluid in the extensor tendon sheaths. There is nonspecific generalized dorsal subcutaneous edema. There is a small amount of fluid in the flexor hallucis longus tendon sheath which potentially can have a normal tibiotalar joint communication. There is a small amount of fluid in the tendon sheath of the flexor digitorum longus consistent with low-level tenosynovitis. There is no identified tear of a posterior flexor tendon in the included field of view. The visualized portions of the plantar fascia are intact. There is no identified tear of an anterior extensor tendon. The Lisfranc ligament proper is intact. There is mild midfoot arthritis. There is no identified joint effusion. There is no acute fracture, bone contusion, stress reaction, or other concerning bone marrow signal abnormality. IMPRESSION: 1. Limitations of the exam relating to the lack of intravenous contrast. 2. Lobulated fluid type attenuation along the extensor digitorum longus tendons, most likely relating to abnormal fluid in the tendon sheaths and a complicated tenosynovitis. 3. Nonspecific dorsal subcutaneous edema of the foot. 4. Low level tenosynovitis of the flexor digitorum longus. 5. Mild midfoot arthritis. Dictated by: Dictated on workstation # [id number]
== END ==
LOC: RAD 13:03
PROVIDERS: ATTEND Podiatrist Foot & Ankle Surgery
DX: M19.072 Primary osteoarthritis, left ankle and foot (principal); M67.471 Ganglion, right ankle and foot

== ENCOUNTER 2020-05-27 05:40 | Outpatient (RCR) | payer BC ==
[~2020-05-27] VITALS: Ht 152 cm; Wt 82.7 kg
[~2020-05-27 05:40] MED LIST changes: +ACET1TAB43 PO; +ASCO500C18 PO; +CHOL500061 PO; +DIAZ5TAB49 PO; +DOXY25TA45 PO; +GABA-486 PO; +HYDR-3923 PO; +INSU100I32 SQ; +MELO7.5T46 PO; +METH8TAB5 PO; +MULT-1136 PO; +NEBI20TA2 PO; +POTA10CA43 PO; +SPIR25TA5 PO; +VALS160T29 PO; +VERA80TA4 PO
== END 2020-05-27 11:01 | disposition home or self-care (01) ==
LOC: PREOP 05:40
PROVIDERS: ATTEND Podiatrist Foot & Ankle Surgery
DX: Z01.812 Encounter for preprocedural laboratory examination (principal); L97.519 Non-pressure chronic ulcer of other part of right foot with unspecified severity; Z20.828 Contact with and (suspected) exposure to other viral communicable diseases
CPT/HCPCS: 87635

== ENCOUNTER 2020-05-28 07:28 | Day surgery (SDC) | payer BC ==
[2020-05-28] VITALS (9 sets, daily range): BP systolic 123–145; BP diastolic 64–78
[~2020-05-28] VITALS: Ht 152 cm; Wt 82.7 kg
[2020-05-28] MEDS ORDERED: VANCOMYCIN INJECTION 1,000 MG in NS (IVPB) 250 ML IV NR (07:54)
[2020-05-28] MEDS ORDERED: LACTATED RINGERS 1,000 ML IV PRN (08:00)
[2020-05-28 08:32] LABS: CHLORIDE 97 MMOL/L (98-107); POTASSIUM 3.7 MMOL/L (3.6-5.0); SODIUM 131 MMOL/L (135-145)
[2020-05-28 08:33] LABS: GLUCOSE 83 MG/DL (70-105)
[2020-05-28 08:35] LABS: CARBON DIOXIDE 18 MMOL/L (21-32)
[2020-05-28 08:37] LABS: CREATININE SERUM 0.65 MG/DL (0.60-1.30); GFR ESTIMATED > 60
[2020-05-28 08:38] LABS: BUN/CREATININE RATIO 20
[2020-05-28] MEDS ORDERED: BUPIVACAINE 0.5% 30 ML (SENSORCAINE) VIAL ONE (08:51)
[2020-05-28] MEDS ORDERED: LIDOCAINE 1% INJ 20 ML 20 ML VIAL ONE (08:51)
[2020-05-28] MEDS ORDERED: proPOfol 200 MG/20 ML (DIPRIVAN) VIAL IV ONE (08:57)
[2020-05-28] MEDS ORDERED: MIDAZOLAM 2 MG/2 ML (VERSED) VIAL ONE (08:58)
--- NOTE | 2020-05-28 09:12 | Progress Note-Pre Operative ---
Pre-Operative Progress Note H&P Reviewed The H&P was reviewed, patient examined and no changes noted. Date Seen by Provider: May 28, 2020 Time Seen by Provider: 09:11 Date H&P Reviewed: May 28, 2020 Time H&P Reviewed: 09:11 Pre-Operative Diagnosis: Diabetic Ulceration and Abscess, Right Foot AARON NICOLE DPM May 28, 2020 09:12
[2020-05-28] MEDS ORDERED: DAKIN'S 1/4 STRENGTH (0.125%) 473 ML BTL TOP SCH (09:33)
--- NOTE | 2020-05-28 10:12 | Anesthesia-General Post-Op ---
MAC Patient Condition Mental Status/LOC: Same as Preop Cardiovascular: Satisfactory Nausea/Vomiting: Absent Respiratory: Satisfactory Pain: Controlled Complications: Absent Post Op Complications Complications None Follow Up Care/Instructions Patient Instructions None needed. Anesthesiology Discharge Order Discharge Order Patient is doing well, no complaints, stable vital signs, no apparent adverse anesthesia problems. No complications reported per nursing. GOPAL HINOJOSA CRNA May 28, 2020 10:12
--- NOTE | 2020-05-28 10:13 | Progress Note-Post Operative ---
Post-Operative Progess Note Surgeon (s)/Analytics Leader (s) Surgeon AARON NICOLE DPM Analytics Leader: none Pre-Operative Diagnosis Diabetic Ulceration and Abscess, Right Foot Post-Operative Diagnosis Same Procedure & Operative Findings Date of Procedure 05/28/20 Procedure Performed/Findings Deep Debridement of Ulcer and Abscess (down to deep fascia and tendon), right foot Anesthesia Type MAC Estimated Blood Loss Estimated blood loss (mL): Minimal Specimens/Packing Specimens Removed Abscess right foot Packing: none AARON NICOLE DPM May 28, 2020 10:13
[2020-05-28] MEDS ORDERED: HYDROcodone/APAP 5 MG/325 MG (LORTAB) TAB PO PRN (10:15)
[2020-05-28] MEDS ORDERED: ONDANSETRON 4 MG/2 ML (SDV) Z0FRAN IVP PRN (10:15)
[2020-05-28] MEDS ORDERED: LACTATED RINGERS 1,000 ML IV SCH (10:15)
[2020-05-28] MEDS ORDERED: morphine INJ 10 MG/ML 1ML (SYR OR VIAL) IVP ONE (10:15)
--- NOTE | 2020-05-28 11:45 | NUR ---
HAS BEEN ALERT, TAKING PO FLUIDS WITHOUT PROBLEM. DENIES RIGHT FOOT PAIN. RIGHT FOOT HAS BEEN ELEVATED WITH ICE PACK ON THROUGHOUT RECOVERY. SPLINT SHOE ON. TOES PINK, WARM, CAP REFILL <3 SECONDS. REPORTS FOOT FEELS NUMB FROM SENSORY BLOCK. STATES SHE IS READY FOR DISMISSAL, AND THAT SHE HAS A WALKER AT HOME FOR USE INSTRUCTED BY DR NICOLE.
--- NOTE | 2020-05-28 13:21 | OPERATIVE REPORT ---
DATE OF SERVICE: 05/28/2020 SURGEON: Adriana Wagoner DPM. PREOPERATIVE DIAGNOSIS: Diabetic ulceration, abscess, right foot. POSTOPERATIVE DIAGNOSIS: Diabetic ulceration, abscess, right foot. PROCEDURE: Excision of deep abscess, right foot. Debridement of necrosis, right foot. WOUND CLASS: Contaminated. ANESTHESIA: Monitored anesthesia care. HEMOSTASIS: Pneumatic ankle tourniquet at 250 mmHg. INDICATIONS: This 59-year-old female presents complaining with an abscess and ulceration to the right foot. She has had a history of ganglionic cyst that was draining. Multiple drainages of the ganglionic cyst had been attempted in the past with recurrence. She developed a deep abscess and cellulitis recently and the area was drained in the office after which she was placed on antibiotics guided by wound culture. She is agreeable to debridement of the wound after risks and complications were discussed at length. No guarantees were extended to the patient and she is willing to proceed. DESCRIPTION OF PROCEDURE: The patient was brought back to the operating table, placed in secure supine position. Appropriate timeout was performed. The right lower extremity had an ankle tourniquet placed over several layers of padding. The right foot was anesthetized in an ankle block, anterior aspect of the right foot utilizing 10 mL of 1:1 mixture of 1% Xylocaine, 0.5% Marcaine utilizing aseptic technique. The right foot was then prepped and draped in normal sterile manner. The right foot was then elevated, allowed to exsanguinate after which the tourniquet was inflated to 250 mmHg. Attention was then directed to the dorsal aspect of the right foot where a fibrotic and necrotic tissue was identified to the dorsal aspect of the mid foot. This was sharply debrided. Below this was a significant amount of additional fibrotic tissue overlying the extensor tendons. The necrotic tissue a portion was sent for culture and sensitivity, the rest was sent for specimen. There is considerable amount of undermining and epibole noted. This area was then curettaged as much as removing any necrotic tissue. No purulence was identified. At this time, the proximal wound did have some local erythema present. No proximal streaking noted at this juncture, no deeper abscess was noted and was identified previously down to the level of the deep fascia and extensor tendons. The wound was debrided with a power irrigation utilizing 300 mL of normal saline. After this was done, the wound edges were freshened utilizing sharp dissection. The wound measured approximately 5.5 cm in width and 4.5 cm in length. Once again, normal saline was utilized for irrigation of the wound. The wound was then dressed with 0.25% Dakin solution soaked, sterile 4 x 4's, ABD, Kerlix, and Coban wrap applied. Prior to wound dressing, the tourniquet was dropped, and all active bleeders were cauterized. The patient tolerated the anesthesia and procedure well and was transported from the operating room to the recovery room with vital signs stable and vascular status intact to all digits of the right foot. The patient is given postoperative instructions to do wound care daily with the Dakin solution. This will be demonstrated as well as written instructions given to the patient. We will see the patient back in the office in one week period of time or sooner if necessary. She will continue with her oral antibiotics, which includes ciprofloxacin at this point. She has Tylenol#3 for pain. We will see her again soon in the office if necessary. Job ID: [id number] DocumentID: [id number] Dictated Date: 05/28/2020 10:25:25 Compound Specialist Date: 05/28/2020 13:20:52 Dictated By: ARIEL VASQUEZ
== END 2020-05-28 11:53 | disposition home or self-care (01) ==
LOC: SDC 07:28
PROVIDERS: ATTEND Podiatrist Foot & Ankle Surgery
DX: E11.621 Type 2 diabetes mellitus with foot ulcer (principal); L97.519 Non-pressure chronic ulcer of other part of right foot with unspecified severity; L02.611 Cutaneous abscess of right foot; I10 Essential (primary) hypertension; G47.33 Obstructive sleep apnea (adult) (pediatric); K21.9 Gastro-esophageal reflux disease without esophagitis; E11.40 Type 2 diabetes mellitus with diabetic neuropathy, unspecified; M06.9 Rheumatoid arthritis, unspecified; D50.9 Iron deficiency anemia, unspecified; E78.1 Pure hyperglyceridemia; Z79.899 Other long term (current) drug therapy; Z79.4 Long term (current) use of insulin; Z88.8 Allergy status to other drugs, medicaments and biological substances; Z88.5 Allergy status to narcotic agent; Z80.3 Family history of malignant neoplasm of breast; Z82.3 Family history of stroke
CPT/HCPCS: 36415; 80048; 82962; 87070; 87075; 87077; 87081; 87186; 87205

== ENCOUNTER → 2020-07-14 | Outpatient (CLI) | payer BC ==
--- NOTE | 2020-07-14 14:41 | Diagnostic Imaging Report ---
PROCEDURE: CT cervical spine without contrast. TECHNIQUE: Multiple contiguous axial images were obtained through the cervical spine without the use of intravenous contrast. Sagittal and coronal reformations were then performed. Auto Exposure Controls were utilized during the CT exam to meet ALARA standards for radiation dose reduction. INDICATION: Neck and upper back pain radiating to the shoulders. CORRELATION is made with prior CT from 08/21/2014. There is reversal of the normal cervical lordotic curvature. Severe degenerative disease at C5-C6 level is noted with complete loss of the disc space. This has progressed since the exam from 2014. There is also an increase in the degree of retrolisthesis of C5 on C6 since the prior exam. No fractures are identified. Prevertebral tissues are within normal limits. Odontoid is intact. There is some milder generalized cervical spondylosis with variable disc space narrowing and marginal spurring at other levels. IMPRESSION: Cervical spondylosis. This has progressed particularly the C5-C6 level since the prior exam from 2014, there is now greater retrolisthesis present. There is reversal of the normal cervical curvature. No acute bony abnormality is detected. Dictated by: Dictated on workstation # [id number]
== END ==
LOC: RAD 13:21
PROVIDERS: ATTEND Nurse Practitioner Family
DX: M47.22 Other spondylosis with radiculopathy, cervical region (principal); M48.02 Spinal stenosis, cervical region; M43.12 Spondylolisthesis, cervical region
CPT/HCPCS: 72125

== ENCOUNTER 2020-11-05 13:30 | Outpatient (RCR) | payer BC ==
[~2020-11-05 13:30] MED LIST changes: -GEMF600T8 PO; +GEMF600T88 PO
== END 2020-11-09 | disposition home or self-care (01) ==
PROVIDERS: ATTEND Physician Assistant
DX: M54.12 Radiculopathy, cervical region (principal)

== ENCOUNTER 2020-11-12 15:15 | Outpatient (RCR) | payer BC ==
[2020-12-09] MEDS ORDERED: GABA300C PO (13:08)
[2020-12-09] MEDS ORDERED: HYDR-3924 PO (13:08)
[2020-12-09] MEDS ORDERED: VALS320T15 PO (13:08)
== END 2020-12-08 13:55 | disposition home or self-care (01) ==
PROVIDERS: ATTEND Physician Assistant
DX: M54.12 Radiculopathy, cervical region (principal); I10 Essential (primary) hypertension

== ENCOUNTER 2020-12-09 05:54 | Outpatient (CLI) | payer BC ==
[~2020-12-09] VITALS: Ht 167.7 cm; Wt 81.8 kg
[2020-12-09] MEDS ORDERED: VALS320T15 PO (13:08)
[2020-12-09] MEDS ORDERED: HYDR-3924 PO (13:08)
[2020-12-09] MEDS ORDERED: GABA300C PO (13:08)
== END 2020-12-09 13:18 | disposition home or self-care (01) ==
LOC: PREOP 05:54
PROVIDERS: ATTEND Podiatrist Foot & Ankle Surgery
DX: Z01.818 Encounter for other preprocedural examination (principal)

== ENCOUNTER 2020-12-15 08:26 | Day surgery (SDC) | payer BC ==
[2020-12-15] VITALS (8 sets, daily range): BP systolic 128–142; BP diastolic 68–81
[~2020-12-15] VITALS: Ht 167.7 cm; Wt 81.8 kg
[~2020-12-15 08:26] MED LIST changes: +GABA300C PO; +HYDR-3924 PO; +VALS320T15 PO
[2020-12-15] MEDS ORDERED: LACTATED RINGERS 1,000 ML IV PRN (08:45)
[2020-12-15] MEDS ORDERED: ceFAZolin INJECTION 1,000 MG in WATER (STERILE) FOR INJECTION 10 ML IV ONE (08:45)
[2020-12-15] MEDS ORDERED: BUPIVACAINE 0.5% 30 ML (SENSORCAINE) VIAL ONE (09:28)
[2020-12-15] MEDS ORDERED: MIDAZOLAM 2 MG/2 ML (VERSED) VIAL ONE ×2 (09:46→10:05)
[2020-12-15] MEDS ORDERED: LIDOCAINE 1% INJ 20 ML 20 ML VIAL ONE (09:49)
[2020-12-15] MEDS ORDERED: proPOfol 200 MG/20 ML (DIPRIVAN) VIAL IV ONE ×2 (09:53→10:29)
[2020-12-15] MEDS ORDERED: LIDOCAINE PF 2% 5 ML (XYLOCAINE) VIAL ONE (09:54)
--- NOTE | 2020-12-15 10:00 | Progress Note-Pre Operative ---
Pre-Operative Progress Note H&P Reviewed The H&P was reviewed, patient examined and no changes noted. Date Seen by Provider: Dec 15, 2020 Time Seen by Provider: 10:00 Date H&P Reviewed: Dec 15, 2020 Time H&P Reviewed: 10:00 Pre-Operative Diagnosis: Soft Tissue lesion Right Foot AARON NICOLE DPM Dec 15, 2020 10:00
--- NOTE | 2020-12-15 11:35 | Anesthesia-General Post-Op ---
MAC Patient Condition Mental Status/LOC: Same as Preop Cardiovascular: Satisfactory Nausea/Vomiting: Absent Respiratory: Satisfactory Pain: Controlled Complications: Absent Post Op Complications Complications None Follow Up Care/Instructions Patient Instructions None needed. Anesthesiology Discharge Order Discharge Order Patient is doing well, no complaints, stable vital signs, no apparent adverse anesthesia problems. No complications reported per nursing. VITA DEXTER CRNA Dec 15, 2020 11:35
--- NOTE | 2020-12-15 11:42 | Progress Note-Post Operative ---
Post-Operative Progess Note Surgeon (s)/Elevator Examiner (s) Surgeon AARON NICOLE DPM Elevator Examiner: none Pre-Operative Diagnosis Soft Tissue lesion Right Foot Post-Operative Diagnosis Same Procedure & Operative Findings Date of Procedure 12/15/20 Procedure Performed/Findings Excision of soft tissue lesion, right Anesthesia Type MAC Estimated Blood Loss Estimated blood loss (mL): Minimal Specimens/Packing Specimens Removed Soft Tissue lesion (Deep), right AARON NICOLE DPM Dec 15, 2020 11:41
[2020-12-15] MEDS ORDERED: LACTATED RINGERS 1,000 ML IV SCH (11:45)
[2020-12-15] MEDS ORDERED: HYDROcodone/APAP 5 MG/325 MG (LORTAB) TAB PO PRN (11:45)
[2020-12-15] MEDS ORDERED: morphine INJ 10 MG/ML 1ML (SYR OR VIAL) IVP ONE (11:45)
[2020-12-15] MEDS ORDERED: CEPH500C PO (11:47)
[2020-12-15] MEDS ORDERED: TRM50T PO (11:47)
--- NOTE | 2020-12-15 12:55 | Physical Therapy Ortho Eval ---
PT Orthopedic Evaluation Type of Surgery Soft Tissue lesion Right Foot Prior Level of Function Current Living Status: Spouse Locomotion (Upon Admit): Independent, Front Wheeled Walker Established Durable Medical Eq: Front Wheeled Walker Subjective Entry Into Home: Stairs With Railing Steps Into Home: 2 Motor Control Motor Control: Motor Control WNL ROM ROM: WFL, except focal deficit Strength Strength: WFL Transfer SCALE: Activities may be completed with or without assistive devices. 7-Nxkepcvfmx-uqcpitm completes the activity by him/herself with no assistance from a helper. 5-Set-up or Clean-up Assistance-helper sets up or cleans up; patient completes activity. [place] assists only prior to or following the activity. 4-Supervision or Touching Assistance-helper provides verbal cues and/or touching/steadying and/or contact guard assistance as patient completes activity. Assistance may be provided throughout the activity or intermittently. 3-Partial/Moderate Assistance-helper does LESS THAN HALF the effort. [place] lifts, holds or supports trunk or limbs, but provides less than half the effort. 2-Substantial/Maximal Assistance-helper does MORE THAN HALF the effort. [place] lifts or holds trunk or limbs and provides more than half the effort. 2-Xfsykrtal-upysfa does ALL the effort. Patient does none of the effort to complete the activity. Or, the assistance of 2 or more helpers is required for the patient to complete the activity. If activity was not attempted, code reason: 7-Patient Refused. 9-Not Applicable-not attempted and the patient did not perform the activity before the current illness, exacerbation or injury. 10-Not Attempted due to Environmental Limitations-(lack of equipment, weather restraints, etc.). 88-Not Attempted due to Medical Conditions or Safety Concerns. Transfers (B, C, W/C) (QC): 5 Gait Gait Assistive Device: FWW Right Lower Extremity: Right Weight Bearing Status RLE: Partial Weight Bearing Left Lower Extremity: Left Weight Bearing Status LLE: Full Weight Bearing Gait (QC): 4 Distance (QC): 5=417-77 ft Distance: 100' Gait Level of Assist: 4 (SBA) Treatment Rendered Treatment: Gait Train, Step Train (verbal only) Assessment/Goals Goal Time Frame: 1 Visit Plan Treatment Plan: Discharge Visits Per Week: 1 PT/Family Agrees to Plan: Yes Time Time In: 1225 Time Out: 1243 Total Billed Treatment Time: 18 Billed Treatment Time 1 visit [facility] 18 min KINSEY FLETCHER PT Dec 15, 2020 12:55
--- NOTE | 2020-12-15 18:26 | OPERATIVE REPORT ---
DATE OF SERVICE: 12/15/2020 SURGEON: Adriana Nicole DPM. PREOPERATIVE DIAGNOSIS: Soft tissue mass, right foot. POSTOPERATIVE DIAGNOSIS: Soft tissue mass, right foot. PROCEDURE: Excision of soft tissue mass, right foot. WOUND CLASS: Clean contaminated. ANESTHESIA: Monitored anesthesia care. HEMOSTASIS: Pneumatic ankle tourniquet at 225 mmHg. INDICATION: This 60-year-old female presents complaining of a recurring cyst of the right foot. The cyst has gotten so large that it caused necrosis previously. That wound has subsequently healed, but the soft tissue lesion appears to be returning. She will have a sinus area where it drains every once in a while, and this seems to relieve the pressure. She is agreeable to surgical intervention after risks and complications were discussed at length. No guarantees were extended to the patient and she is willing to proceed. She understands there is a high reoccurrence rate. She also understands with diabetes and chronic steroid use, healing may be a complication. With sinus drainage that also could be an issue for the patient. DESCRIPTION OF PROCEDURE: The patient was brought back to the operating table, placed in a secure supine position. Appropriate timeout was performed. Pneumatic ankle tourniquet was placed on the right lower extremity over several layers of padding. The right foot was then anesthetized utilizing 10 mL 0.5% Marcaine, 2% Xylocaine injected in a block to the dorsal lateral aspect of the right foot. The right foot was then prepped and draped in normal sterile manner. The right foot was then elevated and allowed to exsanguinate after which the tourniquet was inflated to 225 mmHg. Attention was then directed to the dorsal lateral aspect of the right foot where a 5 cm longitudinal linear incision was created overlying the soft tissue lesion. The incision was deepened in the same plane with great care to identify and retract all vital neurovascular structures. Only necessary blood vessels were cauterized as encountered. The intermediate dorsal cutaneous nerve was identified and retracted. Dissection was carried out through the remainder of the soft tissue down to the soft tissue mass, which was grossly identified to be a ganglionic cyst, had some clear gelatinous fluid to it. This lesion was approximately 3.5 to 4 cm and it was sent for gross and microscopic evaluation. Further exploration was performed proximally. The extensor retinaculum was incised. No abnormalities were identified in this area. The incision was deepened distally through the extensor tendons and a sinus tract was identified in this area between the slips of the extensor digitorum longus tendons. The lesion was traced down to bone and there is some white gelatinous type of material as well as some yellow discoloration in the area. Swab culture was taken for aerobic, anaerobic and fungal findings. This material was also sent for gross and microscopic evaluation to evaluate specifically for tophi. Next, a curette was used to retrieve all the material and also to help in scarring the soft tissue to prevent further possibility of a cyst formation. The wound was flushed with copious amounts of normal saline and closure was then performed in layers. Deep closure was performed with 3-0 Vicryl, superficial with 4-0 Vicryl, skin closure with 4-0 Prolene in a horizontal mattress type stitch. Postoperative injection consisted of 10 mg dexamethasone into the distal incision area. Injection also included 6 mL of 1:1 mixture of 1% Xylocaine, 0.5% Marcaine injected in a local infusion to the surgical site. Postoperative dressing consisted of Betadine soaked Adaptic, sterile 4 x 4, sterile Kerlix, all secured with Coban wrap. The patient tolerated the anesthesia and procedure well, was transported from the operating room to the recovery area with vital signs stable and vascular status intact to all digits of the right foot. Postoperative instructions were dispensed to the patient as well as prescription for tramadol and Keflex. We will see her back in the office in 10 days' period of time. In the meantime, she is to be partial weightbearing with crutches with minimal weightbearing and elevation for the majority of her days. Job ID: [id number] DocumentID: [id number] Dictated Date: 12/15/2020 11:57:19 Econometrics Professor Date: 12/15/2020 18:25:48 Dictated By: ADRIANA NICOLE DPM
== END 2020-12-15 12:55 | disposition home or self-care (01) ==
LOC: SDC 08:26
PROVIDERS: ATTEND Podiatrist Foot & Ankle Surgery
DX: M67.471 Ganglion, right ankle and foot (principal); K21.9 Gastro-esophageal reflux disease without esophagitis; I10 Essential (primary) hypertension; E78.5 Hyperlipidemia, unspecified; G47.33 Obstructive sleep apnea (adult) (pediatric); J32.1 Chronic frontal sinusitis; E11.40 Type 2 diabetes mellitus with diabetic neuropathy, unspecified; E78.1 Pure hyperglyceridemia; J30.9 Allergic rhinitis, unspecified; M06.9 Rheumatoid arthritis, unspecified; D50.9 Iron deficiency anemia, unspecified; K58.9 Irritable bowel syndrome, unspecified; Z79.4 Long term (current) use of insulin; Z79.899 Other long term (current) drug therapy; Z99.89 Dependence on other enabling machines and devices; Z90.89 Acquired absence of other organs; Z80.3 Family history of malignant neoplasm of breast; Z82.3 Family history of stroke
CPT/HCPCS: 82947; 87070; 87075; 87081; 87205

== ENCOUNTER → 2021-03-16 | Outpatient (CLI) | payer BC ==
[~2021-03-16] MED LIST changes: +CEPH500C PO; +SCOP1PAT10 TD; -SCOP1PAT11 TD; +TRM50T PO
--- NOTE | 2021-03-16 15:58 | Diagnostic Imaging Report ---
PROCEDURE: US Venous Lower Ext [place]. TECHNIQUE: Multiple real-time grayscale images were obtained over the lower extremities in various projections, bilaterally. Additional duplex Doppler and color Doppler images were also obtained. INDICATION: Leg swelling. FINDINGS: The veins of lower extremities have good color filling and compressibility. There is phasic flow and a normal response to augmentation. 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 No evidence for deep vein thrombosis. Dictated by: Dictated on workstation # [id number]
== END ==
LOC: RAD 14:19
PROVIDERS: ATTEND Family Medicine Sports Medicine
DX: M71.22 Synovial cyst of popliteal space [Baker], left knee (principal); M71.21 Synovial cyst of popliteal space [Baker], right knee
CPT/HCPCS: 93970

== ENCOUNTER → 2021-03-26 | Outpatient (CLI) | payer BC ==
--- NOTE | 2021-03-26 16:34 | Diagnostic Imaging Report ---
EXAMINATION: Left shoulder radiographs, 3 views. COMPARISON: August 08, 2019. HISTORY: 60-year-old female, left shoulder pain. FINDINGS: There is severe left glenohumeral joint space loss with awwm-wm-gntr articulation. There is no particularly prominent osteophyte formation. The humeral head is normally positioned relative to the glenoid. There is mild widening of the acromioclavicular joint, which is an interval change. There are no prominent acromioclavicular degenerative changes. There is a well-corticated ossification adjacent to the distal clavicle consistent with a chronic long-standing etiology which is also previously present. IMPRESSION: 1. End-stage glenohumeral arthritis. 2. Mild widening of the acromioclavicular joint which is an interval change since comparison exam and may relate to acromioclavicular joint separation injury. Dictated by: Dictated on workstation # [id number]
== END ==
LOC: RAD 11:48
PROVIDERS: ATTEND Nurse Practitioner Family
DX: M19.012 Primary osteoarthritis, left shoulder (principal); I89.0 Lymphedema, not elsewhere classified; E87.6 Hypokalemia
CPT/HCPCS: 73030

== ENCOUNTER → 2021-04-21 | Outpatient (CLI) | payer BC ==
--- NOTE | 2021-04-21 16:56 | Diagnostic Imaging Report ---
INDICATION: Postmenopausal female. COMPARISON: None. FINDINGS: AP Spine L1-L4: [BMD (g/cm2): 1.110] [T-Score: -0.8] [Z-Score: -0.1] [BMD Previous: NA] [BMD % Change: NA] LT Hip Neck: [BMD (g/cm2): 0.919] [T-Score: -0.9] [Z-Score: 0.1] LT Hip Total: [BMD (g/cm2):1.191] [T-Score:1.5] [Z-Score: 2.0] [BMD Previous: NA] [BMD % Change: NA] RT Hip Neck: [BMD (g/cm2):0.911] [T-Score:-09] [Z-Score:0.0] RT Hip Total: [BMD (g/cm2):1.136] [T-score:1.0] [Z-Score:1.6] [BMD Previous:NA] [BMD % Change:NA] *Indicates significant change from prior examination based on 95% confidence level. World Health Organization criteria for BMD interpretation classify patients as Normal (T-score at or above -1.0), Osteopenic (T-score between -1.0 and -2.5) or Osteoporotic (T-score at or below -2.5). LIMITATIONS AND MODIFICATION: None. FRACTURE RISK (FRAX SCORE): The ten year probability of (%): Major Osteoporotic Fracture: [NA] Hip Fracture: [NA] IMPRESSION: 1. Normal bone mineral density. 2. Baseline examination. 3. See below National Osteoporosis Foundation guidelines on when to potentially initiate pharmacologic therapy. Based on the National Osteoporosis Foundation Guidelines, pharmacologic treatment should be initiated in any of the following, unless clinical conditions suggest otherwise: * Any patient with prior fragility fracture of the hip or vertebrae. A spine fracture indicates 5X risk for subsequent spine fracture and 2X risk for subsequent hip fracture. * Osteoporosis (T-score <-2.5). * Postmenopausal women and men age 50 and older with low bone mass/osteopenia (T-score between -1.0 and -2.5) by DXA and 10-year major osteoporotic fracture greater than 20% or a 10-year probability of hip fracture greater than 3%. These fracture risks are supplied above in the FRAX score, if applicable. * Clinician judgement and/or patient preferences may indicate treatment for people with 10-year fracture probabilities above or below these levels. Dictated by: Dictated on workstation # [id number]
== END ==
LOC: RAD 14:00
PROVIDERS: ATTEND Nurse Practitioner Family
DX: M46.02 Spinal enthesopathy, cervical region (principal); Z79.52 Long term (current) use of systemic steroids; Z78.0 Asymptomatic menopausal state
CPT/HCPCS: 77080

== ENCOUNTER → 2021-05-26 | Outpatient (CLI) | payer BC ==
--- NOTE | 2021-05-26 14:39 | Diagnostic Imaging Report ---
PROCEDURE: MRI left upper extremity without contrast. TECHNIQUE: Multiplanar, multisequence non contrast-enhanced MRI of the left upper extremity was accomplished. INDICATION: Chronic shoulder pain EXAMINATION: Left shoulder MRI without contrast 05/26/2021. FINDINGS: The supraspinatus and infraspinatus tendons are intact. The subscapularis tendon is poorly visualized and heterogeneous in nature. There is at least partial thickness tear but difficult to characterize given the diffuse heterogeneity in the region. The long head of biceps tendon lies within the bicipital groove and appears intact. The biceps tendon anchor is intact. There is narrowing and spurring within the glenohumeral joint space with remodeling of the humeral head, chronic in appearance. There is widening at the acromioclavicular joint with fluid extending through the joint space. There is a fair amount of fluid within the subdeltoid subacromial bursa. There is edema throughout the anterior aspect of the shoulder with edema tracking along the subscapularis muscle. The labrum is poorly characterized without contrast. There is atrophy and fatty infiltration throughout the supraspinatus infraspinatus and subscapularis muscles most marked within the subscapularis muscle. The visualized axilla is unremarkable. IMPRESSION: 1. Ill-defined poorly characterized subscapularis tendon with at least a partial tear suspected. Secondary edema is seen within the subscapularis muscle with atrophy present. Supraspinatus and infraspinatus tendons intact. 2. Diffuse chronic degenerative findings. 3. Large amount of fluid within the subdeltoid subacromial bursa suspicious for bursitis with other findings as discussed above. 4. Not mentioned in the body of the report, there is mild posterior subluxation of the humeral head in relation to the glenoid. Dictated by: Dictated on workstation # [id number]
== END ==
LOC: RAD 13:10
PROVIDERS: ATTEND Orthopaedic Surgery
DX: M19.012 Primary osteoarthritis, left shoulder (principal); S43.002A Unspecified subluxation of left shoulder joint, initial encounter; M62.512 Muscle wasting and atrophy, not elsewhere classified, left shoulder; X58.XXXA Exposure to other specified factors, initial encounter
CPT/HCPCS: 73221

== ENCOUNTER → 2021-05-28 | Outpatient (CLI) | payer BC ==
[~2021-05-28] MED LIST changes: +GADOTERATE 0.5 MMOL/ML (CLARISCAN) 15 ML VIAL IV ONE; +GADOTERATE 0.5 MMOL/ML (CLARISCAN) 5 ML VIAL IV ONE
[2021-05-28 11:38] LABS: BASOPHILS # (AUTO) 0.1 10^3/uL (0.0-0.1); BASOPHILS % (AUTO) 1 % (0-10); EOSINOPHILS % (AUTO) 1 % (0-10); HEMATOCRIT 36 % (35-52); HEMOGLOBIN 11.7 g/dL (11.5-16.0); LYMPHOCYTES # (AUTO) 1.6 10^3/uL (1.0-4.0); LYMPHOCYTES % (AUTO) 19 % (12-44); MEAN CORPUSCULAR HEMOGLOBIN 31 pg (25-34); MEAN CORPUSCULAR HGB CONC 33 g/dL (32-36); MEAN CORPUSCULAR VOLUME 95 fL (80-99); MEAN PLATELET VOLUME 8.6 fL (9.0-12.2); MONOCYTES # (AUTO) 0.8 10^3/uL (0.0-1.0); MONOCYTES % (AUTO) 9 % (0-12); NEUTROPHILS % (AUTO) 70 % (42-75); PLATELET COUNT 241 10^3/uL (130-400); WHITE BLOOD COUNT 8.7 10^3/uL (4.3-11.0)
[2021-05-28 11:57] LABS: BILIRUBIN,TOTAL 0.4 MG/DL (0.1-1.0); CALCIUM 9.4 MG/DL (8.5-10.1); CREATININE SERUM 0.62 MG/DL (0.60-1.30); POTASSIUM 3.9 MMOL/L (3.6-5.0); TOTAL PROTEIN 6.8 GM/DL (6.4-8.2)
--- NOTE | 2021-05-28 12:30 | Diagnostic Imaging Report ---
EXAMINATION: MRI of the abdomen with and without contrast. TECHNIQUE: Multiplanar, multisequence MR images of the abdomen were obtained with and without intravenous contrast. HISTORY: Pancreatic lesion evaluation. COMPARISON: CT abdomen 09/04/2019 FINDINGS: Liver: There is diffuse hypoattenuation liver compatible with hepatic steatosis. There is no focal hepatic mass. The portal and hepatic veins are patent. Gallbladder and Bile Ducts: There is no intrahepatic or extrahepatic bile duct dilation. There are no filling defects in the gallbladder or common bile duct. Pancreas: Mildly increased size of a 2.8 x 2.2 cm cystic lesion within the head of the pancreas (previously 2.1 x 1.[address] There are additional adjacent subcentimeter cystic lesions. These demonstrate connection to the pancreatic duct. No suspicious enhancement or solid component. No pancreatic ductal dilatation. Kidneys: There is no hydronephrosis. Adrenal glands: There is no adrenal gland nodule or thickening. Spleen: The spleen is normal in size without focal lesion. Lymph Nodes: There is no suspicious lymphadenopathy. Other: There is no ascites. IMPRESSION: 1. Mildly increased size of a dominant cystic lesion within the head of the pancreas which has imaging characteristics which suggest a side branch type IPMN. Recommend MRI follow-up in one year given its interval increased growth. 2. Hepatic steatosis. Dictated by: Dictated on workstation # [id number]
--- NOTE | 2021-05-28 12:31 | Diagnostic Imaging Report ---
INDICATION: Shortness of breath. TIME OF EXAM: 11:40 AM Correlation is made with prior chest from 02/01/2019. FINDINGS: Heart size is stable. Lungs are clear. No infiltrates are seen. No effusion or pneumothorax is identified. There are postop changes in the right shoulder. IMPRESSION: No acute cardiopulmonary process is detected. Dictated by: Dictated on workstation # [id number]
== END ==
LOC: RAD 05-26 14:00
PROVIDERS: ATTEND Nurse Practitioner Family
DX: K86.2 Cyst of pancreas (principal); K76.0 Fatty (change of) liver, not elsewhere classified; E87.1 Hypo-osmolality and hyponatremia; R73.9 Hyperglycemia, unspecified; R06.00 Dyspnea, unspecified
CPT/HCPCS: 36415; 71046; 74183; 80053; 82024; 82533; 83880; 84588; 84681; 85025

== ENCOUNTER 2021-06-04 09:56 | Outpatient (RCR) | payer BC ==
[~2021-06-04 09:56] MED LIST changes: -GADOTERATE 0.5 MMOL/ML (CLARISCAN) 15 ML VIAL IV ONE; -GADOTERATE 0.5 MMOL/ML (CLARISCAN) 5 ML VIAL IV ONE
== END 2021-06-05 | disposition home or self-care (01) ==
PROVIDERS: ATTEND Family Medicine Sports Medicine
DX: M17.0 Bilateral primary osteoarthritis of knee (principal); I10 Essential (primary) hypertension; E11.9 Type 2 diabetes mellitus without complications; M81.0 Age-related osteoporosis without current pathological fracture; Z96.611 Presence of right artificial shoulder joint; Z79.4 Long term (current) use of insulin

== ENCOUNTER 2021-06-04 09:57 | Outpatient (RCR) | payer BC | END 2021-06-05 | disposition home or self-care (01) | PROVIDERS: ATTEND Physician Assistant | DX: M54.12 Radiculopathy, cervical region (principal) ==

== ENCOUNTER 2021-06-29 15:17 | Outpatient (RCR) | payer BC | END 2021-07-06 | disposition home or self-care (01) | PROVIDERS: ATTEND Physician Assistant | DX: M54.12 Radiculopathy, cervical region (principal); I10 Essential (primary) hypertension ==

== ENCOUNTER 2021-07-28 14:28 | Outpatient (RCR) | payer BC | END 2021-08-03 | disposition home or self-care (01) | PROVIDERS: ATTEND Orthopaedic Surgery | DX: M25.512 Pain in left shoulder (principal); I10 Essential (primary) hypertension; Z96.611 Presence of right artificial shoulder joint ==

== ENCOUNTER 2021-09-01 13:43 | Outpatient (RCR) | payer BC | END 2021-09-03 | disposition home or self-care (01) | PROVIDERS: ATTEND Orthopaedic Surgery | DX: M25.512 Pain in left shoulder (principal); I10 Essential (primary) hypertension; Z96.611 Presence of right artificial shoulder joint ==

== ENCOUNTER 2021-09-28 13:46 | Outpatient (RCR) | payer BC ==
[~2021-09-28 13:46] MED LIST changes: +ACET-11 PO; -ACET1TAB43 PO
== END 2021-10-03 | disposition home or self-care (01) ==
PROVIDERS: ATTEND Orthopaedic Surgery
DX: M25.512 Pain in left shoulder (principal); I10 Essential (primary) hypertension; E11.9 Type 2 diabetes mellitus without complications; Z96.611 Presence of right artificial shoulder joint

== ENCOUNTER 2021-10-15 09:32 | Outpatient (RCR) | payer BC ==
[2021-11-04] MEDS ORDERED: VERA80TA4 PO (21:44)
[2021-11-04] MEDS ORDERED: SPIR25TA5 PO (21:44)
== END 2021-11-03 | disposition home or self-care (01) ==
PROVIDERS: ATTEND Orthopaedic Surgery
DX: M25.512 Pain in left shoulder (principal); I10 Essential (primary) hypertension; E11.9 Type 2 diabetes mellitus without complications; Z96.612 Presence of left artificial shoulder joint

== ENCOUNTER → 2021-10-27 | Outpatient (CLI) | payer BC ==
--- NOTE | 2021-10-27 14:43 | Diagnostic Imaging Report ---
GASTRIC EMPTYING TIME SCAN TECHNIQUE: Anterior and posterior planar scintigraphic images of the stomach were obtained after the patient ingested 1.04 mCi of technetium 99m sulfur collate mixed with eggs. INDICATION: Gastroparesis. COMPARISON: None available. FINDINGS: A time activity curve was calculated for the stomach with the following values of retained activity in the stomach post ingestion: 1 hour: 72% (delayed if greater than 90% retained) 2 hour: 46% (delayed if greater than 60% retained) 3 hour: 3% (delayed if greater than 30% retained) 4 hour: 1% (delayed if greater than 10%) The half-time (T1/2) for gastric emptying was 106 minutes, which is normal. IMPRESSION: No gastroparesis. Dictated by: Dictated on workstation # [id number]
== END ==
LOC: CARD 08:39
PROVIDERS: ATTEND Internal Medicine
DX: K31.84 Gastroparesis (principal)
CPT/HCPCS: 78264; A9541

== ENCOUNTER 2021-11-04 11:56 | Observation (INO) | payer BC ==
[~2021-11-04] VITALS: Ht 152.4 cm; Wt 82.5 kg
--- NOTE | 2021-11-04 13:37 | ED General ---
General Chief Complaint: General Problems/Pain Stated Complaint: L ELBOW INFECTION Nursing Triage Note: HAS HAD ISSUES WITH BURSITIS SINCE THE END OF SEPTEMBER, DRAINED ONCE SINCE THEN. ON ANTIBIOTICS NOW. INCREASED WEAKNESS AND DIZZINESS. (MICHELINE JOLLEY) History of Present Illness Date Seen by Provider: Nov 04, 2021 Time Seen by Provider: 13:10 Initial Comments 61 year old female presents to the ED via private vehicle for increased weakness and dizziness possibly secondary to an infected elbow. 3 weeks ago she was seen by Dr. Cooper for Bursitis of left elbow which was drained at that time and 2 days following. She reports getting a rocephin shot at this time. It originally was healing well without problems but around 7-10 days ago it began to swell again and have drainage from the site of the original drainage location. She reports going in to [facility] last week at which point she was told there was infection in the area. She reports they irrigated the bursa with saline and started her on Bactram which she is still taking at this time. She has been having generalized fatigue since the swelling recurred and reports having an unwitnessed syncopal episode on Tuesday at a gas station. She Doesn't remember the events immediately leading up to the fall and thinks that she was on the ground for 5-10 seconds before someone saw her and she regained consciousness. She has not had any other falls since the event, but does have abrasians on her arm from bumping into things. She denies fever, chills, CP, or SOB at this time. She has a history of vertigo that comes and goes and reports that it has been present for the last few weeks. (MICHELINE JOLLEY) Allergies and Home Medications Allergies Coded Allergies: butorphanol (Unverified Allergy, Severe, "BAD REACTION", 05/26/20) celecoxib (Unverified Allergy, Severe, FACIAL NUMBNESS, 05/26/20) naproxen (Unverified Allergy, Severe, FACIAL NUMBNESS, 05/26/20) Patient Home Medication List Home Medication List Reviewed: Yes (JODI ORTIZ MD) Acetaminophen (Tylenol Arthritis) 650 Mg Tablet.er, 1,300 MG PO BID PRN for PAIN-MILD (1-4), (Reported) Entered as Reported by: MARIANA COHEN on 11/05/211432 Last Action: Reviewed Ascorbate Calcium (Vitamin C) 500 Mg Tablet, 500 MG PO DAILY, (Reported) Entered as Reported by: MARIANA COHEN on 11/05/211432 Last Action: Reviewed Carboxymethylcellulose Sodium (Lubricant Eye Drops) 0.5 % Drops, 1 DROP OP QID PRN for DRY EYES, (Reported) Entered as Reported by: MARIANA COHEN on 11/05/211432 Last Action: Reviewed Cholecalciferol (Vitamin D3) (Vitamin D3) 125 Mcg (5000 Unit) Capsule, 125 MCG PO DAILY, (Reported) Entered as Reported by: MARIANA COHEN on 11/05/211432 Last Action: Reviewed Famotidine (Pepcid AC) 10 Mg Tablet, 10 MG PO DAILY PRN for HEARTBURN, (Reported) Entered as Reported by: MARIANA COHEN on 11/05/211432 Last Action: Reviewed Gabapentin (Gabapentin) 100 Mg Capsule, 300 MG PO HS, (Reported) Entered as Reported by: MARIANA COHEN on 11/05/211432 Last Action: Reviewed Hydralazine HCl (Hydralazine HCl) 50 Mg Tablet, 50 MG PO BID, (Reported) Entered as Reported by: CARIE DAVIS on 12/09/20 1308 Last Action: Reviewed Hydrocortisone (Hydrocortisone) 5 Mg Tablet, 5 MG PO DAILY, (Reported) Entered as Reported by: MARIANA COHEN on 11/05/211432 Last Action: Converted Insulin Aspart (Novolog Flexpen) 100 Unit/Ml (3 Ml) Solution, 1 UNITS SQ AC Prescribed by: HAMZAH GRAMAJO on 11/06/21 1020 Insulin Degludec (Tresiba Flextouch U-100) 100 Unit/1 Ml Insuln.pen, 36 UNIT SQ DAILY, (Reported) Entered as Reported by: ELVIRA SWEENEY on 05/26/20 1235 Last Action: Reviewed Lifitegrast (Xiidra) 5 % Droperette, 1 DROP OP HS, (Reported) Entered as Reported by: MARIANA COHEN on 11/05/211432 Last Action: Reviewed Meloxicam (Meloxicam) 7.5 Mg Tablet, 7.5-15 MG PO HS, (Reported) Entered as Reported by: ELVIRA SWEENEY on 05/26/20 1235 Last Action: Reviewed Metformin HCl (Metformin HCl) 1,000 Mg Tablet, 1,000 MG PO DAILY, (Reported) Entered as Reported by: TREMAYNE MEDINA on 03/13/151806 Last Action: Reviewed Methylprednisolone (Methylprednisolone) 8 Mg Tablet, 8 MG PO DAILY, (Reported) Entered as Reported by: ELVIRA SWEENEY on 05/26/20 123 Last Action: Reviewed Nebivolol HCl (Bystolic) 20 Mg Tablet, 20 MG PO DAILY, (Reported) Entered as Reported by: ELVIRA SWEENEY on 05/26/20 123 Last Action: Reviewed Pantoprazole Sodium (Pantoprazole Sodium) 40 Mg Tablet.dr, 40 MG PO HS, (Reported) Entered as Reported by: ELVIRA SWEENEY on 05/26/201234 Last Action: Reviewed Spironolactone (Spironolactone) 50 Mg Tablet, 50 MG PO DAILY, (Reported) Entered as Reported by: MARIANA COHEN on 11/05/21 143 Last Action: Reviewed Sulfamethoxazole/Trimethoprim (Bactrim Ds Tablet) 800 Mg-160 Mg Tablet, 1 EACH PO BID Prescribed by: HAMZAH GRAMAJO on 11/06/21 1020 Valsartan (Valsartan) 160 Mg Tablet, 320 MG PO DAILY, (Reported) Entered as Reported by: MARIANA COHEN on 11/05/21 143 Last Action: Reviewed Verapamil HCl (Verapamil ER) 240 Mg Cap24h.pel, 240 MG PO HS, (Reported) Entered as Reported by: ELVIRA SWEENEY on 05/26/20 123 Last Action: Reviewed Verapamil HCl (Verapamil HCl) 40 Mg Tablet, 80 MG PO HS, (Reported) Entered as Reported by: MARIANA COHEN on 11/05/21 143 Last Action: Reviewed Discontinued Medications Cephalexin (Cephalexin) 500 Mg Capsule, 1 CAP PO TID Discontinued Reason: Duplicate Order Prescribed by: AARON NICOLE on 12/15/20 1147 Last Action: Discontinued Diazepam (Diazepam) 5 Mg Tablet, 2.5 MG PO HS PRN for INSOMNIA, (Reported) Discontinued Reason: Duplicate Order Entered as Reported by: ELVIRA SWEENEY on 05/26/20 1235 Last Action: Discontinued Doxylamine Succinate (Nighttime Sleep-Aid) 25 Mg Tablet, 25 MG PO HS PRN for INSOMNIA, (Reported) Discontinued Reason: Duplicate Order Entered as Reported by: ELVIRA SWEENEY on 05/26/20 1235 Last Action: Discontinued Gabapentin (Neurontin) 300 Mg Capsule, 300 MG PO HS, (Reported) Discontinued Reason: Duplicate Order Entered as Reported by: CARIE DAVIS on 12/09/20 1308 Last Action: Discontinued Multivitamin (Multivitamin) 1 Each Tablet, 1 EACH PO DAILY, (Reported) Discontinued Reason: Duplicate Order Entered as Reported by: ELVIRA SWEENEY on 05/26/20 1235 Last Action: Discontinued Spironolactone (Spironolactone) 25 Mg Tablet, 50 MG PO DAILY Discontinued Reason: Duplicate Order Prescribed by: DONALDO GOODMAN on 11/04/212143 Last Action: Discontinued Tramadol HCl (Tramadol HCl) 50 Mg Tablet, 50 MG PO Q4H PRN for PAIN-MODERATE (5- 7) Discontinued Reason: Duplicate Order Prescribed by: AARON NICOLE on 12/15/20 1149 Last Action: Discontinued Valsartan (Valsartan) 320 Mg Tablet, 320 MG PO DAILY, (Reported) Discontinued Reason: Duplicate Order Entered as Reported by: CARIE DAVIS on 12/09/20 1308 Last Action: Discontinued Verapamil HCl (Verapamil HCl) 80 Mg Tablet, 40 MG PO HS Discontinued Reason: Duplicate Order Prescribed by: DONALDO GOODMAN on 11/04/212143 Last Action: Discontinued Review of Systems Review of Systems Constitutional: No chills; dizziness; No fever; malaise, weakness EENTM: No vision loss, No throat pain Respiratory: No cough, No short of breath Cardiovascular: No chest pain, No palpitations Gastrointestinal: abdominal pain (chronic, associated with IBS.); No constipation, No diarrhea, No nausea, No vomiting Genitourinary: No dysuria; frequency (normal); No hematuria Musculoskeletal: joint pain (acutely in left elbow. Chronic knee and shoulder pain.) Skin: other (abrasion on left arm and swollen erythematous area over the left elbow. Multiple scars across bilateral forearms from skin tears secondary to chronic steroid use.) Psychiatric/Neurological: No Symptoms Reported Hematologic/Lymphatic: No Symptoms Reported Immunological/Allergic: no symptoms reported (MICHELINE JOLLEY) Past Qwivdys-Dyllrr-Hoalry Hx Patient Social History Tobacco Use?: No Use of E-Cig and/or Vaping dev: No Substance use?: No Alcohol Use?: No (MICHELINE JOLLEY) Immunizations Up To Date Tetanus Booster (TDap): More than 5yrs (MICHELINE JOLLEY) Seasonal Allergies Seasonal Allergies: Yes (MICHELINE JOLLEY) Past Medical History Surgeries: Yes (HERNIA REPAIR, L KNEE SCOPE, R TOTAL SHOULDER, CATARACT) Section, Tonsillectomy, Tubal Ligation Respiratory: Yes Sleep Apnea Currently Using CPAP: Yes Currently Using BIPAP: No Cardiac: Yes Heart Murmur, Hypertension Neurological: Yes Headaches /Migraines, Neuropathy Reproductive Disorders: No (last two births were c del) Female Reproductive Disorders: Denies 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 History: Menopausal Sexually Transmitted Disease: No HIV/AIDS: No Genitourinary: Yes UTI-Chronic Gastrointestinal: Yes Gastroesophageal Reflux, Irritable Bowel Musculoskeletal: Yes (POLYMYOSITIS, rt shoulder frozen) Arthritis, Rheumatoid Arthritis Endocrine: Yes (OBESITY) Diabetes, Insulin dep HEENT: Yes (GLASSES) Cataract Loss of Vision: Denies Hearing Impairment: Denies Cancer: No Psychosocial: No Integumentary: No Blood Disorders: No (HX ANEMIA-HAS HAD IRON INFUSION) Adverse Reaction/Blood Tranf: No (N/A) (MICHELINE JOLLEY) Physical Exam Vital Signs Vital Signs - First Documented 11/04/21 12:08 Temp 36.1 Pulse 75 Resp 18 B/P (MAP) 164/74 (104) Pulse Ox 98 (JODI ORTIZ MD) Vital Signs Capillary Refill : Less Than 3 Seconds (MICHELINE JOLLEY) Height, Weight, BMI Height: 4'11.00" Weight: 173lbs. 0.0oz. 78.630382lf; 35.00 BMI Method:Stated General Appearance: No Apparent Distress, Obese HEENT: PERRL/EOMI, TMs Normal Neck: Normal Inspection, Non Tender, Supple Respiratory: Lungs Clear, Normal Breath Sounds, No Respiratory Distress Cardiovascular: Regular Rate, Rhythm, No Murmur, Normal Peripheral Pulses Gastrointestinal: Normal Bowel Sounds, Non Tender, Soft Back: Normal Inspection, No CVA Tenderness, No Vertebral Tenderness Extremity: Normal Capillary Refill, No Calf Tenderness, No Pedal Edema, Other (Fluid filled, erythematous area over left olecranon process. No drainage currently from the area. Two large areas of skin tears in area surrounding olecranon process. No spreading erythema or drainage from these tears. No osseous abnormalites of elbow. Mildly limited flexion of elbow. Numerous white scars on forearms bilaterally.) Neurologic/Psychiatric: Alert, Oriented x3, No Motor/Sensory Deficits, sheet metal former II- XII Norm as Tested Skin: Other (Very thin, frail skin on exam. See extremity section above for more details.) Lymphatic: No Adenopathy (MICHELINE JOLLEY) Procedures/Interventions Suture Size: 4-0 (MICHELINE JOLLEY) Progress/Results/Core Measures Suspected Sepsis SIRS Temperature: Pulse: 75 Respiratory Rate: 18 Laboratory Tests 11/04/21 12:20: White Blood Count 12.9H Blood Pressure 164 /74 Mean: 104 Laboratory Tests 11/04/21 12:20: Creatinine 0.81, Platelet Count 318 (MICHELINE JOLLEY) Results/Orders Lab Results Laboratory Tests Test 11/04/21 12:20 Range/Units White Blood Count 12.9 H 4.3-11.0 10^3/uL Red Blood Count 3.41 L 3.80-5.11 10^6/uL Hemoglobin 9.9 L 11.5-16.0 g/dL Hematocrit 31 L 35-52 % Mean Corpuscular Volume 90 80-99 fL Mean Corpuscular Hemoglobin 29 25-34 pg Mean Corpuscular Hemoglobin Concent 32 32-36 g/dL Red Cell Distribution Width 16.9 H 10.0-14.5 % Platelet Count 318 130-400 10^3/uL Mean Platelet Volume 8.6 L 9.0-12.2 fL Immature Granulocyte % (Auto) 5 % Neutrophils (%) (Auto) 73 42-75 % Lymphocytes (%) (Auto) 12 12-44 % Monocytes (%) (Auto) 9 0-12 % Eosinophils (%) (Auto) 0 0-10 % Basophils (%) (Auto) 1 0-10 % Neutrophils # (Auto) 9.5 H 1.8-7.8 10^3/uL Lymphocytes # (Auto) 1.6 1.0-4.0 10^3/uL Monocytes # (Auto) 1.1 H 0.0-1.0 10^3/uL Eosinophils # (Auto) 0.0 0.0-0.3 10^3/uL Basophils # (Auto) 0.1 0.0-0.1 10^3/uL Immature Granulocyte # (Auto) 0.7 H 0.0-0.1 10^3/uL Sodium Level 124 *L 135-145 MMOL/L Potassium Level 5.0 3.6-5.0 MMOL/L Chloride Level 93 L 98-107 MMOL/L Carbon Dioxide Level 16 L 21-32 MMOL/L Anion Gap 15 H 5-14 MMOL/L Blood Urea Nitrogen 14 7-18 MG/DL Creatinine 0.81 0.60-1.30 MG/DL Estimat Glomerular Filtration Rate 83 BUN/Creatinine Ratio 17 Glucose Level 103 70-105 MG/DL Calcium Level 9.1 8.5-10.1 MG/DL C-Reactive Protein High Sensitivity 0.48 0.00-0.50 MG/DL Smear Scan YES (JODI ORTIZ MD) Micro Results Microbiology 11/04/21 Gram Stain - Final, Resulted 11/04/21 Wound Culture - Preliminary, Resulted No growth (JODI ORTIZ MD) My Orders Orders - JODI ORTIZ MD Ed Iv/Invasive Line Start (11/04/21 13:46) Cbc With Automated Diff (11/04/21 13:46) Basic Metabolic Panel (11/04/21 13:46) Hs C Reactive Protein (11/04/21 13:46) Wound Culture (11/04/21 14:59) Ns Iv 1000 Ml (Sodium Chloride 0.9%) (11/04/21 15:00) Piperacillin Sodium/Tazobactam (Zosyn Vi (11/04/21 15:00) (JODI ORTIZ MD) Vital Signs/I&O 11/04/21 12:08 Temp 36.1 Pulse 75 Resp 18 B/P (MAP) 164/74 (104) Pulse Ox 98 (JODI ORTIZ MD) Vital Signs/I&O Capillary Refill : Less Than 3 Seconds (MICHELINE JOLLEY) Blood Pressure Mean: 104 Departure Communication (Admissions) Time/Spoke to Admitting Phy: 13:[address] Gramajo (JODI ORTIZ MD) Impression Primary Impression: Olecranon bursitis of left elbow Disposition: ADMITTED INPATIENT Condition: Stable Admissions Decision to Admit Reason: Admit from ER (General) Decision to Admit/Date: Nov 06, 2021 Time/Decision to Admit Time: 13:35 (JODI ORTIZ MD) Departure-Patient Inst. Referrals: KAYLIE COOPER DO (PCP) Primary Care Physician JARROD COOPER, MAN (Family) Primary Care Physician Scripts Sulfamethoxazole/Trimethoprim (Bactrim Ds Tablet) 800 Mg-160 Mg Tablet 1 EACH PO BID, #10 TAB Prov: HAMZAH GRAMAJO MD 11/06/21 Insulin Aspart (Novolog Flexpen) 100 Unit/Ml (3 Ml) Solution 1 UNITS SQ AC, #1 EA Continue use with your normal sliding scale from your humalog. Prov: HAMZAH GRAMAJO MD 11/06/21 MICHELINE JOLLEY Nov 04, 2021 13:37 JODI ORTIZ MD Nov 07, 2021 06:37
[2021-11-04 13:56] LABS: BASOPHILS # (AUTO) 0.1 10^3/uL (0.0-0.1); BASOPHILS % (AUTO) 1 % (0-10); EOSINOPHILS % (AUTO) 0 % (0-10); HEMATOCRIT 31 % (35-52); HEMOGLOBIN 9.9 g/dL (11.5-16.0); LYMPHOCYTES # (AUTO) 1.6 10^3/uL (1.0-4.0); LYMPHOCYTES % (AUTO) 12 % (12-44); MEAN CORPUSCULAR HEMOGLOBIN 29 pg (25-34); MEAN CORPUSCULAR HGB CONC 32 g/dL (32-36); MEAN CORPUSCULAR VOLUME 90 fL (80-99); MEAN PLATELET VOLUME 8.6 fL (9.0-12.2); MONOCYTES # (AUTO) 1.1 10^3/uL (0.0-1.0); MONOCYTES % (AUTO) 9 % (0-12); NEUTROPHILS # (AUTO) 9.5 10^3/uL (1.8-7.8); NEUTROPHILS % (AUTO) 73 % (42-75); PLATELET COUNT 318 10^3/uL (130-400); WHITE BLOOD COUNT 12.9 10^3/uL (4.3-11.0)
[2021-11-04 13:57] LABS: CALCIUM 9.1 MG/DL (8.5-10.1)
[2021-11-04 13:58] LABS: SMEAR SCAN COMMENT YES
[2021-11-04 14:02] LABS: CREATININE SERUM 0.81 MG/DL (0.60-1.30)
[2021-11-04] MEDS ORDERED: PIPERACILLIN SODIUM/TAZOBACTAM 4.5 GM in NS (IVPB) 100 ML IV ONE (15:00)
[2021-11-04] MEDS ORDERED: NS IV 1000 ML 1,000 ML IV SCH (15:00)
[2021-11-04 17:43] VITALS: BP 142/72
[2021-11-04] MEDS: NS IV 1000 ML 1,000 ML IV SCH (18:28)
[2021-11-04] MEDS ORDERED: VANCOMYCIN 1500 MG/NS 500 ML IVPB IV NR ×2 (19:00)
[2021-11-04 19:12] VITALS: BP 129/66
[2021-11-04 21:17] VITALS: BP 164/74
[2021-11-04] MEDS: PIPERACILLIN SODIUM/TAZOBACTAM 4.5 GM in NS (IVPB) 100 ML IV SCH (21:24)
[2021-11-04] MEDS ORDERED: RT-ALBUTEROL SULF 2.5 MG/3 ML PRE-MIX VIAL INH PRN (21:30)
[2021-11-04] MEDS ORDERED: SPIR25TA5 PO (21:44)
[2021-11-04] MEDS ORDERED: VERA80TA4 PO (21:44)
[2021-11-04 23:36] VITALS: BP 140/68
[2021-11-05] MEDS: NS IV 1000 ML 1,000 ML IV SCH (03:50)
[2021-11-05] MEDS: PIPERACILLIN SODIUM/TAZOBACTAM 4.5 GM in NS (IVPB) 100 ML IV SCH ×3 (03:54→21:21)
[2021-11-05 04:04] VITALS: BP 129/67
[2021-11-05] MEDS: VANCOMYCIN 1250 MG/NS 250 ML IVPB IV SCH ×2 (06:21)
[2021-11-05 06:59] LABS: POTASSIUM 5.2 MMOL/L (3.6-5.0)
[2021-11-05 07:00] LABS: CALCIUM 8.6 MG/DL (8.5-10.1)
[2021-11-05 07:04] LABS: CREATININE SERUM 0.66 MG/DL (0.60-1.30)
[2021-11-05 08:05] VITALS: BP 129/67
[2021-11-05] MEDS ORDERED: ACETAMINOPHEN 500 MG TAB (TYLENOL) PO PRN (09:45)
[2021-11-05] MEDS ORDERED: PATIENT MAY USE OWN MED,SINGLE MED PO SCH (10:00)
[2021-11-05] MEDS ORDERED: MELOXICAM 7.5 MG (MOBIC) TABLET PO SCH ×2 (10:11→21:00)
--- NOTE | 2021-11-05 10:13 | History & Physical-Hospitalist ---
History of Present Illness HPI/Chief Complaint Patient is 61-year-old female past medical history of RA, polymyositis, fhd-eaictii-jsgaivned diabetes type 2, hypertension who presented to the emergency department due to left elbow drainage. She states roughly a month ago she had her olecranon bursa drained for olecranon bursitis by her primary care provider. She was placed on antibiotics and had to have it read drained a week. She reports the first time 60 cc were removed and the second time only 30 cc. She does not believe any cultures were done at that point. The edema and drainage returned and she went [place] [facility] [place] where they gave her antibiotics and took a culture. She presented to the emergency department yesterday for evaluation and was admitted for IV antibiotics as she has failed outpatient management. This morning she reports feeling okay and her only complaints are that she has a headache and that the Coban on her elbow was bothering her. Source: patient Date Seen 11/05/21 Time Seen by a Provider: 09:15 Attending Physician Adin Vargas DO PCP Admitting Physician: Radha Gramajo MD Attending Physician: Radha Gramajo MD Referring Physician Date of Admission Nov 04, 2021 at 15:04 Home Medications & Allergies Home Medications Reviewed patient Home Medication Reconciliation performed by pharmacy medication reconciliations quick service technician and/or nursing. Patients Allergies have been reviewed. Allergies Allergies Coded Allergies butorphanol (Unverified Allergy, Severe, "BAD REACTION", 05/26/20) celecoxib (Unverified Allergy, Severe, FACIAL NUMBNESS, 05/26/20) naproxen (Unverified Allergy, Severe, FACIAL NUMBNESS, 05/26/20) Past Fsexhyn-Opdhce-Mvvcim Hx Patient Social History Tobacco Use?: No Smoking Status: Never a Smoker Smokeless Tobacco Frequency: Never a User Use of E-Cig and/or Vaping dev: No Substance use?: No Alcohol Use?: No Pt feels they are or have been: No Immunizations Up To Date Date of Influenza Vaccine: Mar 10, 2020 First/Initial COVID19 Vaccinat: done Second COVID19 Vaccination Natanael: done Date of Pneumonia Vaccine: Mar 13, 2018 Seasonal Allergies Seasonal Allergies: Yes Current Status status: No Advance Directives: No Communicates: Verbally Primary Language: Luxembourger Preferred Spoken Language: Luxembourger Is interpretation needed?: No Implanted or Applied Medical D: Orthopedic hardware Past Medical History Surgeries: Abdominal (hernia), Section (x2), Orthopedic, Tonsillectomy, Tubal Ligation Sleep Apnea Currently Using CPAP: Yes Currently Using BIPAP: No Heart Murmur, Hypertension Headaches /Migraines, Neuropathy 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 History: Menopausal Sexually Transmitted Disease: No HIV/AIDS: No UTI-Chronic Gastroesophageal Reflux, Irritable Bowel Arthritis, Rheumatoid Arthritis Diabetes, Insulin dep Cataract Loss of Vision: Denies Hearing Impairment: Denies Blood Disorders: No (HX ANEMIA-HAS HAD IRON INFUSION) Adverse Reaction/Blood Tranf: No (N/A) Family Medical History Reviewed Nursing Family Hx No Pertinent Family Hx Review of Systems Constitutional: No chills, No fever EENTM: no symptoms reported Respiratory: No cough, No short of breath Cardiovascular: see HPI Gastrointestinal: No abdominal pain, No diarrhea, No nausea, No vomiting Genitourinary: no symptoms reported Musculoskeletal: see HPI Skin: other (easily bruises since on steroids) Psychiatric/Neurological: No Symptoms Reported Physical Exam Physical Exam Vital Signs Vital Signs - First Documented 11/04/21 11/04/21 11/04/21 11/05/21 12:08 17:43 21:17 09:42 Temp 36.1 Pulse 75 Resp 18 B/P (MAP) 164/74 (104) Pulse Ox 98 O2 Delivery Room Air O2 Flow Rate 0.00 FiO2 21 Capillary Refill : Less Than 3 Seconds Height, Weight, BMI Height: 4'11.00" Weight: 173lbs. 0.0oz. 78.422866xl; 35.52 BMI Method:Stated General Appearance: No Apparent Distress, Chronically ill, Obese (cushingoid appearance) HEENT: PERRL/EOMI, Moist Mucous Membranes; No Scleral Icterus (L), No Scleral Icterus (R) Neck: Full Range of Motion, Supple Respiratory: Lungs Clear, No Respiratory Distress Cardiovascular: Regular Rate, Rhythm, No Murmur Gastrointestinal: Normal Bowel Sounds, Non Tender, Soft Extremity: Normal Capillary Refill, No Calf Tenderness, No Pedal Edema, Other (left elbow dressed in koban, no drainage on dressing) Neurologic/Psychiatric: Alert, Oriented x3 Skin: Ecchymosis (on arms) Results Results/Procedures Labs Laboratory Tests 11/04/21 12:20 11/05/21 06:26 Patient resulted labs reviewed. Assessment/Plan Admission Diagnosis Olecranon bursitis Admission Status: Observation Reason for Inpatient Admission: see below Assessment and Plan Olecranon bursitis with cellulitis Continue on IV abx discussed with Orthopedic Surgery who will see this afternoon Will attempt to get cultures Called [facility] and they have no seen patient since June IDDMII HTN both BS and Blood culture well controlled, trend SSI Polymyositis RA Continue home steroids DVT ppx: RADHA Mix MD Nov 05, 2021 10:13
[2021-11-05 11:32] VITALS: BP 129/60
[2021-11-05] MEDS: ENOXAPARIN 40 MG/0.4 ML (LOVENOX) SYR SQ SCH (12:38)
[2021-11-05] MEDS ORDERED: VERA40TA2 PO (14:33)
[2021-11-05] MEDS ORDERED: SPIR50TA4 PO (14:33)
[2021-11-05] MEDS ORDERED: ACET-2650 PO (14:33)
[2021-11-05] MEDS ORDERED: FAMO10TA43 PO (14:33)
[2021-11-05] MEDS ORDERED: CARB15DR78 OP (14:33)
[2021-11-05] MEDS ORDERED: HYDR5TAB14 PO (14:33)
[2021-11-05] MEDS ORDERED: GABA-486 PO (14:33)
[2021-11-05] MEDS ORDERED: CHOL500050 PO (14:33)
[2021-11-05] MEDS ORDERED: VALS160T29 PO (14:33)
[2021-11-05] MEDS ORDERED: LIFI1DRO OP (14:33)
[2021-11-05] MEDS ORDERED: ASCO-262 PO (14:33)
[2021-11-05] MEDS: inSUlin ASPART (NovoLOG) 1 UNIT/0.01 ML (CHARGE PER UNIT) SC SCH ×2 (16:09→21:32)
[2021-11-05 16:24] VITALS: BP 115/69
[2021-11-05] MEDS: LACTOBACILLUS ACIDOPHILUS (PROBIOTIC) CAPSULE PO SCH (17:38)
[2021-11-05 19:55] VITALS: BP 130/72
--- NOTE | 2021-11-05 19:58 | CONSULTATION REPORT ---
DATE OF SERVICE: 11/05/2021 REASON FOR CONSULTATION: Left olecranon septic bursitis. HISTORY OF PRESENT ILLNESS: The patient is a 61-year-old right hand dominant female with a significant past medical history including diabetes mellitus, rheumatoid arthritis and polymyositis, who has had three episodes of swelling and erythema on the posterior aspect of her olecranon. This has undergone aspiration with oral antibiotic treatment. She presented and was admitted to the hospital yesterday for continued swelling and erythema. She has not shown signs of systemic illness/sepsis. She was started empirically on vancomycin. She reports it is feeling better. PHYSICAL EXAMINATION: On examination today, there is some erythema and warmth on the dorsal aspect of the olecranon, this is mildly tender to palpation. There is no discharge. She has symmetric elbow range of motion. Sensation is intact distally. DIAGNOSIS: Left olecranon septic bursitis. PLAN: We discussed surgical excision of the bursa. The patient is going to consider this. She currently is not septic systemically. We will plan on following her up in the office on Tuesday with tentative plan for excision Tuesday if she elects to proceed with this. We discussed risks, benefits, options, ramifications and recovery. She is scheduled for followup appointment at 3 p.m. on Tuesday. Job ID: [id number] DocumentID: [id number] Dictated Date: 11/05/2021 15:32:09 Bird Tender Date: 11/05/2021 19:57:29 Dictated By: TIP WARREN MD
[2021-11-05] MEDS ORDERED: PANTOPRAZOLE 40 MG (PROTONIX) TAB PO SCH (21:00)
[2021-11-05] MEDS ORDERED: GABAPENTIN 300 MG (NEURONTIN) CAP PO SCH (21:00)
[2021-11-05 23:25] VITALS: BP 113/67
[2021-11-06 04:45] VITALS: BP 12/75
[2021-11-06] MEDS: PIPERACILLIN SODIUM/TAZOBACTAM 4.5 GM in NS (IVPB) 100 ML IV SCH (05:05)
[2021-11-06 05:59] LABS: HEMATOCRIT 30 % (35-52); HEMOGLOBIN 9.7 g/dL (11.5-16.0); MEAN CORPUSCULAR HEMOGLOBIN 30 pg (25-34); MEAN CORPUSCULAR HGB CONC 33 g/dL (32-36); MEAN CORPUSCULAR VOLUME 92 fL (80-99); MEAN PLATELET VOLUME 8.4 fL (9.0-12.2); PLATELET COUNT 271 10^3/uL (130-400); WHITE BLOOD COUNT 8.1 10^3/uL (4.3-11.0)
[2021-11-06] MEDS ORDERED: TROUGH ORDER-PHARMACY XX NR (06:00)
[2021-11-06] MEDS: inSUlin ASPART (NovoLOG) 1 UNIT/0.01 ML (CHARGE PER UNIT) SC SCH ×2 (06:07→12:22)
[2021-11-06 06:19] LABS: POTASSIUM 4.2 MMOL/L (3.6-5.0)
[2021-11-06 06:20] LABS: CALCIUM 8.4 MG/DL (8.5-10.1)
[2021-11-06 06:24] LABS: CREATININE SERUM 0.66 MG/DL (0.60-1.30)
[2021-11-06 06:35] LABS: VANCOMYCIN,TROUGH 7.8 UG/ML (10.0-20.0)
[2021-11-06] MEDS: VANCOMYCIN 1250 MG/NS 250 ML IVPB IV SCH ×2 (06:50)
[2021-11-06] MEDS ORDERED: predniSONE 10 MG TAB PO SCH (07:00)
[2021-11-06 08:23] VITALS: BP 133/62
[2021-11-06] MEDS ORDERED: VANCOMYCIN 1 GM/NS 250 ML IVPB IV NR ×2 (08:30)
[2021-11-06] MEDS: LACTOBACILLUS ACIDOPHILUS (PROBIOTIC) CAPSULE PO SCH (08:44)
[2021-11-06] MEDS ORDERED: HYDROCORTISONE 20 MG (CORTEF) TAB PO SCH (09:00)
[2021-11-06] MEDS ORDERED: LOPERAMIDE 2 MG (IMODIUM) TABLET PO PRN (10:00)
[2021-11-06] MEDS ORDERED: INSU100I14 SQ (10:20)
[2021-11-06] MEDS ORDERED: SULF-221 PO (10:20)
--- NOTE | 2021-11-06 10:21 | Discharge Summary ---
Diagnosis/Chief Complaint Date of Admission Nov 04, 2021 at 15:04 Date of Discharge Admission Diagnosis Olecranon bursitis Primary Care Patricia Vargas,[facility] Discharge Summary Discharge Physical Exam Allergies: Coded Allergies: butorphanol (Unverified Allergy, Severe, "BAD REACTION", 05/26/20) celecoxib (Unverified Allergy, Severe, FACIAL NUMBNESS, 05/26/20) naproxen (Unverified Allergy, Severe, FACIAL NUMBNESS, 05/26/20) Vitals & I&Os Vital Signs Date Time Temp Pulse Resp B/P (MAP) Pulse Ox O2 Delivery O2 Flow Rate FiO2 11/06/21 08:23 36.6 87 18 133/62 (85) 98 Room Air 11/06/21 07:54 0.00 11/04/21 21:17 21 Hospital Course Labs (last 24 hrs) Laboratory Tests 11/05/21 10:56: Glucometer 106 11/05/21 15:48: Glucometer 168H 11/05/21 20:13: Glucometer 143H 11/06/21 05:15: White Blood Count 8.1, Red Blood Count 3.25L, Hemoglobin 9.7L, Hematocrit 30L, Mean Corpuscular Volume 92, Mean Corpuscular Hemoglobin 30, Mean Corpuscular Hemoglobin Concent 33, Red Cell Distribution Width 17.1H, Platelet Count 271, Mean Platelet Volume 8.4L, Sodium Level 128L, Potassium Level 4.2, Chloride Level 99, Carbon Dioxide Level 15L, Anion Gap 14, Blood Urea Nitrogen 10, Creatinine 0.66, Estimat Glomerular Filtration Rate 100, BUN/Creatinine Ratio 15, Glucose Level 87, Calcium Level 8.4L, Vancomycin Level Trough 7.8L 11/06/21 05:36: Glucometer 87 Microbiology 11/04/21 Gram Stain - Final, Resulted 11/04/21 Wound Culture - Preliminary, Resulted No growth Patient resulted labs reviewed. Pending Labs Laboratory Tests 11/06/21 05:15: White Blood Count 8.1, Red Blood Count 3.25, Hemoglobin 9.7, Hematocrit 30, Mean Corpuscular Volume 92, Mean Corpuscular Hemoglobin 30, Mean Corpuscular Hemoglobin Concent 33, Red Cell Distribution Width 17.1, Platelet Count 271, Mean Platelet Volume 8.4, Sodium Level 128, Potassium Level 4.2, Chloride Level 99, Carbon Dioxide Level 15, Anion Gap 14, Blood Urea Nitrogen 10, Creatinine 0.66, Estimat Glomerular Filtration Rate 100, BUN/Creatinine Ratio 15, Glucose Level 87, Calcium Level 8.4, Vancomycin Level Trough 7.8 11/06/21 05:36: Glucometer 87 Discharge Home Medications: Active Scripts Active Bactrim Ds Tablet (Sulfamethoxazole/Trimethoprim) 800 Mg-160 Mg Tablet 1 Each PO BID Novolog Flexpen (Insulin Aspart) 100 Unit/Ml (3 Ml) Solution 1 Units SQ AC Continue use with your normal sliding scale from your humalog. Reported Xiidra (Lifitegrast) 5 % Droperette 1 Drop OP HS Lubricant Eye Drops (Carboxymethylcellulose Sodium) 0.5 % Drops 1 Drop OP QID PRN Vitamin D3 (Cholecalciferol (Vitamin D3)) 125 Mcg (5000 Unit) Capsule 125 Mcg PO DAILY Vitamin C (Ascorbate Calcium) 500 Mg Tablet 500 Mg PO DAILY Pepcid AC (Famotidine) 10 Mg Tablet 10 Mg PO DAILY PRN Tylenol Arthritis (Acetaminophen) 650 Mg Tablet.er 1,300 Mg PO BID PRN Gabapentin 100 Mg Capsule 300 Mg PO HS TAKES 3 (100MG) CAPULES LAST FILLED 08/01/2021 #90 30 DAY SUPPLY Valsartan 160 Mg Tablet 320 Mg PO DAILY TAKES 2 (160MG) TABLETS Hydrocortisone 5 Mg Tablet 5 Mg PO DAILY Verapamil HCl 40 Mg Tablet 80 Mg PO HS TAKES 2 (40MG) TABLETS TAKES WITH 240MG TO EQUAL 320MG Spironolactone 50 Mg Tablet 50 Mg PO DAILY Hydralazine HCl 50 Mg Tablet 50 Mg PO BID Tresiba Flextouch U-100 (Insulin Degludec) 100 Unit/1 Ml Insuln.pen 36 Unit SQ DAILY Pantoprazole Sodium 40 Mg Tablet.dr 40 Mg PO HS Verapamil ER (Verapamil HCl) 240 Mg Cap24h.pel 240 Mg PO HS TAKES WITH (2) 40MG TABLETS TO EQUAL 320MG Meloxicam 7.5 Mg Tablet 7.5-15 Mg PO HS TAKES 1-2 (7.5MG) TABLETS LAST FILLED 05/03/2021 #60 Methylprednisolone 8 Mg Tablet 8 Mg PO DAILY Bystolic (Nebivolol HCl) 20 Mg Tablet 20 Mg PO DAILY Metformin HCl 1,000 Mg Tablet 1,000 Mg PO DAILY Instructions to patient/family Please see electronic discharge instructions given to patient. HAMZAH GUTIERREZ MD Nov 06, 2021 10:21
[2021-11-06 12:04] VITALS: BP 116/58
--- NOTE | 2021-11-06 12:04 | Discharge Inst-Simple/Standard ---
Discharge Inst-Standard Discharge Medications New, Converted or Re-Newed RX: Transmitted to Pharmacy Patient Instructions/Follow Up Plan of Care/Instructions/FU: Please continue to take your medications as written. Please follow up with your primary care doctor to follow up this hospital stay. Activity as Tolerated: Yes Discharge Diet: ADA Diet Return to The Hospital For: Chest pain, shortness of breath, fever, increasing drainage, weakness, if you feel you are getting worse. HAMZAH GUTIERREZ MD Nov 06, 2021 12:04
[2021-11-06] MEDS: ENOXAPARIN 40 MG/0.4 ML (LOVENOX) SYR SQ SCH (12:23)
[2021-11-06 13:15] VITALS: BP 116/58
[2021-11-06] MEDS ORDERED: VANCOMYCIN 1250 MG/NS 250 ML IVPB IV SCH ×2 (20:00)
== END 2021-11-06 13:15 | disposition home or self-care (01) ==
LOC: EDUNIT# 11:56 → ER 11:58 → 4TH 15:04
PROVIDERS: ADMIT Family Medicine; ATTEND Family Medicine
DX: M70.22 Olecranon bursitis, left elbow (principal); E11.9 Type 2 diabetes mellitus without complications; I10 Essential (primary) hypertension; M06.9 Rheumatoid arthritis, unspecified; Z79.899 Other long term (current) drug therapy; Z79.4 Long term (current) use of insulin; Z79.52 Long term (current) use of systemic steroids
CPT/HCPCS: 36415; 80048; 80202; 82947; 85025; 85027; 86141; 87070; 87205; 94760; 96361; 96365; 96366; 96372; 96375; 96376; G0378

== ENCOUNTER → 2021-11-10 | Outpatient (CLI) | payer BC ==
[~2021-11-10] MED LIST changes: +ACET-2650 PO; +ASCO-262 PO; +CARB15DR78 OP; +CHOL500050 PO; +FAMO10TA43 PO; +HYDR5TAB14 PO; +INSU100I14 SQ; +LIFI1DRO OP; +SPIR50TA4 PO; +SULF-221 PO; +VERA40TA2 PO
== END | disposition home or self-care (01) ==
LOC: PREOP 05:31
PROVIDERS: ATTEND Orthopaedic Surgery
DX: Z01.818 Encounter for other preprocedural examination (principal)

== ENCOUNTER → 2022-05-26 | Outpatient (CLI) | payer BC | END | disposition home or self-care (01) | LOC: PREOP 05:34 | PROVIDERS: ATTEND Orthopaedic Surgery | DX: Z01.818 Encounter for other preprocedural examination (principal) ==

== ENCOUNTER 2022-06-02 10:04 | Day surgery (SDC) | payer BC ==
--- NOTE | 2022-05-25 15:39 | HISTORY AND PHYSICAL ---
DATE OF SERVICE: 06/02/2022 ADMISSION HISTORY AND PHYSICAL DATE OF SURGERY: 06/02/2022. PROCEDURE: Right knee arthroscopy. HISTORY: The patient is a 61-year-old female who has had longstanding right knee pain, but has had an increase in mechanical type symptoms including catching and locking over the last several months, she has undergone treatment with injections with only temporary relief of her symptoms. The patient does have degenerative changes noted radiographically and understands that an arthroscopy can help with her mechanical symptoms. It will not alleviate her arthritic symptoms, but due to failure to improve with conservative measures, the patient elected to proceed with surgical intervention. REVIEW OF SYSTEMS: No chest pain, no shortness of breath. No dysuria. PAST MEDICAL HISTORY: Hypertension, polymyositis, reflux, rheumatoid arthritis, IBS-D, diabetes, JAROD, iron deficiency anemia, hypertriglyceridemia, fatigue. PAST SURGICAL HISTORY: Tonsillectomy, , herniorrhaphy, tubal ligation, left knee arthroscopy, cardiac catheterization, right reverse shoulder replacement, left knee repair. FAMILY HISTORY: Significant for breast cancer, hypertension, cardiovascular disease, stroke, diabetes. PRIMARY CARE PROVIDER: Dr. Vargas. MEDICATIONS: Humalog, [ ], gabapentin, Voltaren, metformin, methylprednisolone, pantoprazole, Zetia, losartan, Nebivolol, fenofibrate, spironolactone, verapamil, Plaquenil. ALLERGIES: BUTORPHANOL. SOCIAL HISTORY: The patient denies alcohol and tobacco use. PHYSICAL EXAMINATION: GENERAL: The patient is well-developed, well-nourished, in no acute distress. HEENT: Normocephalic, atraumatic. Pupils equal, round, react to light. Oropharynx is clear. NECK: Supple. No lymphadenopathy. LUNGS: Clear to auscultation bilaterally. HEART: Regular rate and rhythm. ABDOMEN: Soft, nontender, nondistended. EXTREMITIES: The right knee demonstrates tenderness along the medial joint line. She has pain medially with Anita's with an audible click with Anita's maneuver. No varus or valgus laxity. She has a large effusion. Negative anterior and posterior drawer. Range of motion is 0/5/125. IMPRESSION: Right knee medial meniscus tear with associated chondromalacia. PLAN: Right knee arthroscopy with partial medial meniscectomy, chondroplasty. The risks, benefits, options, ramifications and recovery have been discussed at length with the patient. She understands and wishes to proceed. Job ID: [id number] DocumentID: [id number] Dictated Date: 05/25/2022 11:53:40 Tube Dispatcher Date: 05/25/2022 15:37:00 Dictated By: TIP WARREN MD
[~2022-06-02] VITALS: Ht 146 cm; Wt 83.9 kg
[2022-06-02] VITALS (9 sets, daily range): BP systolic 111–151; BP diastolic 50–91
[~2022-06-02 10:04] MED LIST changes: +FENO160T12 PO; +HYDROcodone/APAP 7.5 MG/325 MG (LORTAB, LORCET PLUS) TABLET PO PRN
[2022-06-02] MEDS ORDERED: ceFAZolin INJECTION 2,000 MG in NS (IVPB) 50 ML IV ONE (10:15)
[2022-06-02] MEDS ORDERED: LACTATED RINGERS 1,000 ML IV PRN (10:15)
[2022-06-02] MEDS ORDERED: methylPREDNISolone 40 MG/ML (Solu-MEDROL) VIAL ONE (10:29)
--- NOTE | 2022-06-02 11:07 | Progress Note-Pre Operative ---
Pre-Operative Progress Note Date of Available H&P: May 25, 2022 Date H&P Reviewed: Jun 02, 2022 Time H&P Reviewed: 10:59 Changes from last HP none Pre-Operative Diagnosis: right knee medial mensicus tear and chondromalacia TIP WARREN MD Jun 02, 2022 11:07
--- NOTE | 2022-06-02 11:08 | Progress Note-Post Operative ---
Post-Operative Progess Note Surgeon (s)/Dry Mill Worker (s) Surgeon TIP WARREN MD Dry Mill Worker: Davide Martínez Pre-Operative Diagnosis right knee medial mensicus tear and chondromalacia Post-Operative Diagnosis right knee lateral mensicus tear and chondromalacia of the medial femoral and lateral tibial plateau Procedure & Operative Findings Date of Procedure 06/02/22 Procedure Performed/Findings right knee arthroscopic partial lateral mensicectomy and chondroplasty of the medial femoral condyle and tibial plateau Anesthesia Type GETA Estimated Blood Loss Estimated blood loss (mL): minimal Specimens/Packing Specimens Removed none Packing: none TIP WARREN MD Jun 02, 2022 11:08
[2022-06-02] MEDS ORDERED: BUPIVACAINE 0.25% 30 ML (SENSORCAINE) VIAL ONE (11:26)
[2022-06-02] MEDS ORDERED: morphine PF (DURAMORPH) 10 MG/10 ML AMP ONE (11:26)
--- NOTE | 2022-06-02 12:55 | Anesthesia-General Post-Op ---
General Patient Condition Mental Status/LOC: Same as Preop Cardiovascular: Satisfactory Nausea/Vomiting: Absent Respiratory: Satisfactory Pain: Controlled Complications: Absent Post Op Complications Complications None Follow Up Care/Instructions Patient Instructions None needed. Anesthesia/Patient Condition Patient Condition Patient is doing well, no complaints, stable vital signs, no apparent adverse anesthesia problems. No complications reported per nursing. GOPAL HINOJOSA CRNA Jun 02, 2022 12:55
[2022-06-02] MEDS ORDERED: HYDROmorphone 2 MG/ML VIAL (DILAUDID) IV ONE (13:00)
[2022-06-02] MEDS ORDERED: morphine INJ 10 MG/ML 1ML (SYR OR VIAL) IVP ONE (13:00)
[2022-06-02] MEDS ORDERED: ONDANSETRON 4 MG/2 ML (SDV) Z0FRAN IVP PRN (13:00)
[2022-06-02] MEDS ORDERED: PROMETHAZINE INJ 25 MG/ML (PHENERGAN) AMP IVP ONE (13:00)
--- NOTE | 2022-06-02 14:34 | Physical Therapy Ortho Eval ---
PT Orthopedic Evaluation Type of Surgery Knee Scope right side Prior Level of Function Current Living Status: Spouse Locomotion (Upon Admit): Independent Established Durable Medical Eq: Front Wheeled Walker Subjective Subjective Patient in bed pre tx, agrees to PT, has 1/10 pain in right knee. Entry Into Home: Stairs With Railing Steps Into Home: 3 Motor Control Motor Control: Motor Control WNL ROM right knee flexion 90 degrees, extension +2 degrees Transfer SCALE: Activities may be completed with or without assistive devices. 7-Mbvdjfroyc-ezxewtu completes the activity by him/herself with no assistance from a helper. 5-Set-up or Clean-up Assistance-helper sets up or cleans up; patient completes activity. [place] assists only prior to or following the activity. 4-Supervision or Touching Assistance-helper provides verbal cues and/or touching/steadying and/or contact guard assistance as patient completes activity. Assistance may be provided throughout the activity or intermittently. 3-Partial/Moderate Assistance-helper does LESS THAN HALF the effort. [place] lifts, holds or supports trunk or limbs, but provides less than half the effort. 2-Substantial/Maximal Assistance-helper does MORE THAN HALF the effort. [place] lifts or holds trunk or limbs and provides more than half the effort. 7-Yphszvqkl-iycxrn does ALL the effort. Patient does none of the effort to complete the activity. Or, the assistance of 2 or more helpers is required for the patient to complete the activity. If activity was not attempted, code reason: 7-Patient Refused. 9-Not Applicable-not attempted and the patient did not perform the activity before the current illness, exacerbation or injury. 10-Not Attempted due to Environmental Limitations-(lack of equipment, weather restraints, etc.). 88-Not Attempted due to Medical Conditions or Safety Concerns. Transfers (B, C, W/C) (QC): 4 Gait Summary/Comments Patient ambulated 100' with a rolling walker with CGA, gait was antalgic but steady, she also went up and down 1 step using a rolling walker with CGA, cues for foot placement. Treatment Rendered Treatment: Therapeutic Exercises, Gait Train, Step Train Exercise Instruction: Quad Sets, Heel Slides, Ankle Pumps Assessment/Goals Goal Time Frame: 1 Visit Understands HEP: Yes Safe Ambulation: Yes Plan Treatment Plan: Discharge PT/Family Agrees to Plan: Yes Time Time In: 1404 Time Out: 1412 Total Billed Treatment Time: 12 Billed Treatment Time 1 visit EVL 12' LETY HILL PT Jun 02, 2022 14:33
--- NOTE | 2022-06-02 19:45 | OPERATIVE REPORT ---
DATE OF SERVICE: 06/02/2022 PREOPERATIVE DIAGNOSES: 1. Right knee medial meniscus tear. 2. Right knee chondromalacia of the patella. 3. Right knee chondromalacia of medial femoral condyle. POSTOPERATIVE DIAGNOSES: 1. Right knee lateral meniscus tear. 2. Right knee chondromalacia of medial femoral condyle. 3. Right knee chondromalacia of lateral tibial plateau. PROCEDURES: 1. Right knee arthroscopic partial lateral meniscectomy. 2. Right knee arthroscopic chondroplasty of the medial femoral condyle. 3. Right knee arthroscopic chondroplasty of lateral tibial plateau. SURGEON: Dr. Powell. LYE BATH OPERATOR: Davide Martínez, who assisted throughout the procedure and closed the incisions. ANESTHESIA: General endotracheal by London Lloyd CRNA. TOURNIQUET TIME: Not applicable. ESTIMATED BLOOD LOSS: Minimal. DRAINS: None. COMPLICATIONS: None. POSTOPERATIVE PLANS: Routine knee arthroscopy protocol. The patient was transferred to the recovery room awake and stable condition. STATEMENT OF MEDICAL NECESSITY: The patient is a 61-year-old female with rheumatoid arthritis with longstanding progressive right knee pain, catching, locking and swelling. She does not desire total knee arthroplasty. The radiographs reveal diffuse joint space narrowing. She understood that arthroscopy could help with her mechanical symptoms, but would not cure her arthritic type symptoms. Examination under anesthesia revealed range of motion of 5/0/130 with negative Pardeep, negative anterior and posterior drawer. No varus or valgus laxity and a negative pivot shift. ARTHROSCOPIC FINDINGS: The patella demonstrated diffuse grade IV chondral loss throughout the trochlea demonstrated grade IV chondral loss inferiorly. The medial and lateral gutters were clear. The ACL and PCL were intact. The lateral compartment demonstrated grade IV chondral loss over the tibial plateau and femur and adjacent 10 x 15 areas with surrounding grade III chondral flaps on the tibia. The lateral meniscus demonstrated a degenerative tear involving one-third of the posterior horn and body. The medial compartment demonstrated no meniscal pathology; however, there was grade IV chondral loss over the femoral condyle and tibial plateau and adjacent 15 x 15 areas with surrounding grade III chondral flaps on the femoral condyle lesion. DESCRIPTION OF PROCEDURE: After risks and benefits of procedure were discussed and questions were answered, informed consent was signed and placed on the chart. The operative site was confirmed in the preop holding initialed by the surgeon. The patient was then transferred to the operating room and after adequate levels of general endotracheal anesthetic were obtained, timeout was called, confirming the operative site. Examination under anesthesia was performed with the above findings noted. The right lower extremity was prepped and draped in the usual sterile fashion. The knee joint was injected with 60 mL of fluid. Standard inferolateral portal was placed . Under direct visualization, an inferomedial portal was created. The menisci and cruciates were carefully probed with the above findings noted. The unstable chondral flaps of the medial femoral condyle were debrided with the shaver back to a stable edge. Scope was then redirected into the lateral compartment where the unstable chondral flaps on the lateral tibial plateau were debrided with a shaver back to a stable edge and the posterior horn of the lateral meniscus was debrided with a biter and shaver back to a stable edge. It was carefully probed and no further tearing or instability noted. The knee was copiously irrigated. The port sites were closed with 4-0 nylon in interrupted fashion. The knee was injected with Duramorph. Port sites were infiltrated with plain Marcaine. A soft dressing was applied. The patient was transferred to recovery room awake and in stable condition. Job ID: [id number] DocumentID: [id number] Dictated Date: 06/02/2022 12:55:20 Media Specialist Date: 06/02/2022 19:43:00 Dictated By: TIP POWELL MD
== END 2022-06-02 14:40 | disposition home or self-care (01) ==
LOC: SDC 10:04
PROVIDERS: ATTEND Orthopaedic Surgery
DX: M23.351 Other meniscus derangements, posterior horn of lateral meniscus, right knee (principal); M94.261 Chondromalacia, right knee; E66.9 Obesity, unspecified; Z68.39 Body mass index [BMI] 39.0-39.9, adult
CPT/HCPCS: 82947; 87081

== ENCOUNTER → 2022-07-15 | Outpatient (CLI) | payer BC ==
[~2022-07-15] MED LIST changes: +HOLD METFORMIN - RECEIVED CONTRAST 20 ML VIAL IV SCH; -HYDROcodone/APAP 7.5 MG/325 MG (LORTAB, LORCET PLUS) TABLET PO PRN; +IOHEXOL 350 MG/ML 100 ML (OMNIPAQUE 350) VIAL IV ONE; +NS 100 ML (IVPB) BAG IV ONE; -POTA10CA43 PO; +POTA10CA44 PO
--- NOTE | 2022-07-15 14:16 | Diagnostic Imaging Report ---
PROCEDURE: CT angiography of the chest with contrast. TECHNIQUE: Multiple contiguous axial images were obtained through the chest after uneventful bolus administration of intravenous contrast. 3D reconstructed CTA MIP acquisitions were also performed. Auto Exposure Controls were utilized during the CT exam to meet ALARA standards for radiation dose reduction. INDICATION: Dyspnea on exertion. COMPARISON: 01/25/2019 There is no pulmonary arterial filling defect to indicate embolism. Thoracic aorta is of normal caliber without evidence of intimal abnormality. There is minimal atherosclerotic calcification of coronary arteries and calcification of aortic valve. The lungs are clear without consolidation or definite mass. There is no significant pleural or pericardial fluid. No pathologically enlarged adenopathy is identified. Stable degenerative findings are seen in the lower thoracic spine. Below the diaphragm, note is made of further increase in size of eccentric mass in the proximal pancreatic body which now measures 3.5 x 2.4 cm. There is a probable subacute nondisplaced left 11th rib fracture. IMPRESSION: No CTA evidence of pulmonary embolism. No other definite acute abnormality is identified however further increase in presumed cystic pancreatic mass would warrant additional characterization with MRI to exclude solid component. Dictated by: Dictated on workstation # [id number]
== END ==
LOC: RAD 13:41
PROVIDERS: ATTEND Nurse Practitioner Family
DX: R79.1 Abnormal coagulation profile (principal); R06.09 Other forms of dyspnea
CPT/HCPCS: 71275

== ENCOUNTER 2022-08-04 06:09 | Outpatient (CLI) | payer BC ==
[~2022-08-04] VITALS: Ht 152.4 cm; Wt 87.7 kg
[~2022-08-04 06:09] MED LIST changes: -HOLD METFORMIN - RECEIVED CONTRAST 20 ML VIAL IV SCH; -IOHEXOL 350 MG/ML 100 ML (OMNIPAQUE 350) VIAL IV ONE; -NS 100 ML (IVPB) BAG IV ONE
[2022-08-05] MEDS ORDERED: DOCU-163 PO (11:18)
[2022-08-05] MEDS ORDERED: FERR325T24 PO (11:18)
[2022-08-05] MEDS ORDERED: ACET-2650 PO (11:18)
[2022-08-05] MEDS ORDERED: NAPR220C11 PO (11:18)
[2022-08-05] MEDS ORDERED: MAGN400T29 PO (11:18)
== END 2022-08-05 15:53 | disposition home or self-care (01) ==
LOC: PREOP 06:09
PROVIDERS: ATTEND Orthopaedic Surgery
DX: Z01.818 Encounter for other preprocedural examination (principal)

== ENCOUNTER → 2022-08-06 | Outpatient (CLI) | payer BC ==
[~2022-08-06] MED LIST changes: +DOCU-163 PO; +FERR325T24 PO; +GADOTERATE 0.5 MMOL/ML (CLARISCAN) 15 ML VIAL IV ONE; +MAGN400T29 PO; +NAPR220C11 PO
--- NOTE | 2022-08-06 11:39 | Diagnostic Imaging Report ---
PROCEDURE: MR imaging abdomen with and without contrast. TECHNIQUE: Multiplanar, multisequence MR imaging of the abdomen was performed with and without contrast. INDICATION: Follow-up pancreatic cyst. COMPARISON: 05/28/2021. FINDINGS: The cystic mass arising from the anterior aspect of the pancreatic head has increased in size now measuring 3.6 x 3.0 cm (previously 2.7 x 2.2 cm). No enhancing mural nodule or thickening/enhancement of the cyst wall. However, there are two worrisome features of this cyst, and these are size greater than 3 cm and cyst growth rate of greater than 5 mm over two years. No dilation of the main pancreatic duct or atrophy in the pancreas. Diffuse signal dropout on opposed-phase imaging is indicative of steatosis. No focal hepatic lesion of concern. Subcentimeter cyst in the right hepatic lobe is stable. Pancreas and adrenals are normal. Kidneys are unremarkable. No ascites or abdominal lymphadenopathy. MRCP imaging shows the gallbladder to be normally distended without filling defects. No intrahepatic or extrahepatic biliary duct dilatation. There are no features of biliary obstruction. No choledocholithiasis. IMPRESSION: 1. 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 Based on the [place] consensus guidelines, for a cyst of this size with two "worrisome features", it is recommended that the patient undergo endoscopic ultrasound for further characterization. Dictated by: Dictated on workstation # [id number]
== END ==
LOC: RAD 08:11
DX: K86.2 Cyst of pancreas (principal)
CPT/HCPCS: 74183

== ENCOUNTER 2022-08-11 07:13 | Day surgery (SDC) | payer BC ==
--- NOTE | 2022-08-03 18:25 | HISTORY AND PHYSICAL ---
This will be for outpatient surgery for left knee arthroscopy on 08/11/2022. HISTORY: The patient is a 62-year-old female with longstanding left knee pain. She has undergone treatment with arthroscopy in the past with only temporary relief of her symptoms. She complains of catching and locking in her knee. She reports activity limitations because of the knee. She does note that she has arthrosis of her left knee and an arthroscopy could help with her mechanical symptoms but would not alleviate her arthritic symptoms. REVIEW OF SYSTEMS: No chest pain. No shortness of breath. No dysuria. PAST MEDICAL HISTORY: Hypertension, polymyositis, reflux, rheumatoid arthritis, IBS, diabetes, JAROD, iron deficiency anemia, hypertriglyceridemia, fatigue. PAST SURGICAL HISTORY: Tonsillectomy, , herniorrhaphy, tubal ligation, bilateral knee arthroscopy, cardiac catheterization, right reverse shoulder arthroplasty. FAMILY HISTORY: Breast cancer, hypertension, cardiovascular disease, stroke and diabetes. PRIMARY CARE PHYSICIAN: Dr. Vargas. MEDICATIONS: Humalog, gabapentin, Voltaren, metformin, methylprednisolone, pantoprazole, Zetia, losartan, nebivolol, fenofibrate, spironolactone, verapamil, Plaquenil. ALLERGIES: BUTORPHANOL. SOCIAL HISTORY: The patient denies alcohol or tobacco use. PHYSICAL EXAMINATION: GENERAL: The patient is well-developed, well-nourished, in no acute distress. HEENT: Normocephalic, atraumatic. Pupils are equal, round and reactive to light. Oropharynx is clear. NECK: Supple. No lymphadenopathy. LUNGS: Clear to auscultation bilaterally. HEART: Regular rate and rhythm. ABDOMEN: Soft, nontender, nondistended. EXTREMITIES: Left knee demonstrates moderate effusion. She is tender along medial joint line. She has pain medially with Anita's. She has patellofemoral crepitus and pain with patellar loading. Range of motion 0/2/130. IMPRESSION: Left knee chondromalacia with medial meniscus tear. PLAN: Left knee arthroscopy with chondroplasty and partial meniscectomy. The risks, benefits, options, ramifications and recovery have been discussed at length with the patient. She understands and wishes to proceed. Job ID: [id number] DocumentID: [id number] Dictated Date: 07/26/2022 11:28:23 Practical Nursing Instructor Date: 07/26/2022 13:40:00 Dictated By: TIP WARREN MD
[2022-08-11] VITALS (10 sets, daily range): BP systolic 97–138; BP diastolic 41–73
[~2022-08-11] VITALS: Ht 152 cm; Wt 87.7 kg
[~2022-08-11 07:13] MED LIST changes: -GADOTERATE 0.5 MMOL/ML (CLARISCAN) 15 ML VIAL IV ONE
[2022-08-11] MEDS ORDERED: LACTATED RINGERS 1,000 ML IV PRN (07:30)
[2022-08-11] MEDS ORDERED: ceFAZolin INJECTION 2,000 MG in NS (IVPB) 50 ML IV ONE (07:30)
[2022-08-11] MEDS ORDERED: HYDROcodone/APAP 7.5 MG/325 MG (LORTAB, LORCET PLUS) TABLET PO PRN (07:30)
--- NOTE | 2022-08-11 07:35 | Progress Note-Pre Operative ---
Pre-Operative Progress Note Date of Available H&P: Jul 26, 2022 Date H&P Reviewed: Aug 11, 2022 Time H&P Reviewed: 07:11 Changes from last HP none Pre-Operative Diagnosis: left knee medial meniscus tear and chondromalacia TIP WARREN MD Aug 11, 2022 07:35
--- NOTE | 2022-08-11 07:36 | Progress Note-Post Operative ---
Post-Operative Progess Note Surgeon (s)/Care Attendant (s) Surgeon TIP WARREN MD Care Attendant: Davide Martínez Pre-Operative Diagnosis left knee medial meniscus tear and chondromalacia Post-Operative Diagnosis left knee medial and lateral meniscus tears and chondromalacia of lateral femoral condyle Procedure & Operative Findings Date of Procedure 08/11/22 Procedure Performed/Findings left knee arthroscopic partial medial and lateral meniscetomies and chondroplasty of the lateral femoral condyle Anesthesia Type GETA Estimated Blood Loss Estimated blood loss (mL): minimal Specimens/Packing Specimens Removed none Packing: none TIP WARREN MD Aug 11, 2022 07:36
[2022-08-11] MEDS ORDERED: BUPIVACAINE 0.25% 30 ML (SENSORCAINE) VIAL ONE (07:41)
[2022-08-11] MEDS ORDERED: morphine PF (DURAMORPH) 10 MG/10 ML AMP ONE (07:41)
[2022-08-11] MEDS ORDERED: MIDAZOLAM 2 MG/2 ML (VERSED) VIAL ONE (07:52)
[2022-08-11] MEDS ORDERED: ONDANSETRON 4 MG/2 ML (SDV) Z0FRAN ONE (07:52)
[2022-08-11] MEDS ORDERED: fentaNYL INJ 100 MCG/2 ML AMP ONE (07:52)
[2022-08-11] MEDS ORDERED: proPOfol 200 MG/20 ML (DIPRIVAN) VIAL IV ONE (07:52)
[2022-08-11] MEDS ORDERED: LIDOCAINE PF 2% 5 ML (XYLOCAINE) VIAL ONE (07:52)
[2022-08-11] MEDS ORDERED: methylPREDNISolone 40 MG/ML (Solu-MEDROL) VIAL IV ONE (08:00)
[2022-08-11] MEDS ORDERED: SEVOFLURANE (ULTANE) 15 ML INHAL SOLN ONE (09:23)
--- NOTE | 2022-08-11 09:31 | Anesthesia-General Post-Op ---
General Patient Condition Mental Status/LOC: Same as Preop Cardiovascular: Satisfactory Nausea/Vomiting: Absent Respiratory: Satisfactory Pain: Controlled Complications: Absent Post Op Complications Complications None Follow Up Care/Instructions Patient Instructions None needed. Anesthesia/Patient Condition Patient Condition Patient is doing well, no complaints, stable vital signs, no apparent adverse anesthesia problems. No complications reported per nursing. FRANSISCO BRIGHT CRNA Aug 11, 2022 09:31
[2022-08-11] MEDS ORDERED: ONDANSETRON 4 MG/2 ML (SDV) Z0FRAN IVP PRN (09:45)
[2022-08-11] MEDS ORDERED: fentaNYL INJ 100 MCG/2 ML AMP IVP ONE (09:45)
--- NOTE | 2022-08-11 12:02 | Physical Therapy Ortho Eval ---
PT Orthopedic Evaluation Type of Surgery Knee Scope Prior Level of Function Current Living Status: Spouse Locomotion (Upon Admit): Independent Established Durable Medical Eq: Straight Cane Subjective Subjective Patient sitting in chair upon PT arrival with and nurse in the room, left LE propped up on the bed. patient rates pain currently at a 5/10. Reports she used a cane at home after her right knee scope, however did not use it all the time. Entry Into Home: Stairs With Railing Steps Into Home: 3 Motor Control Motor Control: Motor Control WNL ROM ROM: WFL, except focal deficit Strength Strength: Gen Weak,No Focal Deficit Transfer SCALE: Activities may be completed with or without assistive devices. 9-Zubbjwlqdw-[id number] completes the activity by him/herself with no assistance from a helper. 5-Set-up or Clean-up Assistance-helper sets up or cleans up; patient completes activity. [place] assists only prior to or following the activity. 4-Supervision or Touching Assistance-helper provides verbal cues and/or touching/steadying and/or contact guard assistance as patient completes activity. Assistance may be provided throughout the activity or intermittently. 3-Partial/Moderate Assistance-helper does LESS THAN HALF the effort. [place] lifts, holds or supports trunk or limbs, but provides less than half the effort. 2-Substantial/Maximal Assistance-helper does MORE THAN HALF the effort. [place] lifts or holds trunk or limbs and provides more than half the effort. 5-Ceeaysvkh-zeqpwr does ALL the effort. Patient does none of the effort to complete the activity. Or, the assistance of 2 or more helpers is required for the patient to complete the activity. If activity was not attempted, code reason: 7-Patient Refused. 9-Not Applicable-not attempted and the patient did not perform the activity before the current illness, exacerbation or injury. 10-Not Attempted due to Environmental Limitations-(lack of equipment, weather restraints, etc.). 88-Not Attempted due to Medical Conditions or Safety Concerns. Transfers (B, C, W/C) (QC): 4 Gait Patient insisted on ambulating sans assistive device initially to go to the BR. Patient began walking while this PT was explaining the benefits of the assistive device. Patient ambulates into the BR. She then uses RIB STIFFENER AND HEEL DIPPER from PT and nurse to simulate the use of the one handrail and cane she will use at home. Patient ascended/descended 1 step 3 times safely with proper procedure. Right Lower Extremity: Right Weight Bearing Status RLE: Full Weight Bearing Left Lower Extremity: Left Weight Bearing Status LLE: Weight Bearing/Tolerated Stairs #of Steps: 3 Treatment Rendered Treatment: Gait Train Assessment/Goals Goal Time Frame: 1 Visit Safe Ambulation: Yes Plan Treatment Plan: Discharge Time Time In: 1100 Time Out: 1112 Total Billed Treatment Time: 12 Billed Treatment Time Visit, LISA CALDERON PT Aug 11, 2022 12:02
--- NOTE | 2022-08-11 16:29 | OPERATIVE REPORT ---
DATE OF SERVICE: 08/11/2022 PREOPERATIVE DIAGNOSES: 1. Left knee medial meniscus tear. 2. 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 3. Left knee chondromalacia patella. POSTOPERATIVE DIAGNOSES: 1. Left knee medial meniscus tear. 2. Left knee lateral meniscus tear. 3. Left knee chondromalacia of lateral femoral condyle. PROCEDURE: 1. Left knee arthroscopic partial medial meniscectomy. 2. Left knee arthroscopic partial lateral meniscectomy. 3. Left knee arthroscopic chondroplasty of lateral femoral condyle. SURGEON: Randy Warren MD MACHINIST MECHANIC: Davide Martínez, who assisted throughout the procedure and closed the incisions. ANESTHESIA: General endotracheal by Martine Brito CRNA. TOURNIQUET TIME: Not applicable. ESTIMATED BLOOD LOSS: Minimal. COMPLICATIONS: None. COMPLICATIONS: None. POSTOPERATIVE PLAN: Routine arthroscopy protocol. The patient was transferred to recovery room awake and stable condition. STATEMENT OF MEDICAL NECESSITY: The patient is a 62-year-old female with longstanding left knee pain. Radiographs revealed medial and patellofemoral joint space narrowing. She tried rest, activity modifications, anti-inflammatories without relief. Due to functional impairment and failure to improve with conservative measures, the patient elected to proceed with surgical intervention. The patient was counseled that she did have significant arthrosis in her knee and may require total knee arthroplasty in the future. Examination under anesthesia revealed range of motion 0/0/125 with negative Pardeep, negative anterior and posterior drawer. No varus or valgus laxity, negative pivot shift. ARTHROSCOPIC FINDINGS: The patella and trochlea demonstrated complete grade 4 chondral loss. The medial and lateral gutters were clear. The ACL and PCL were intact. The lateral compartment demonstrated a horizontal cleavage tear of the posterior horn of the lateral meniscus involving approximately one-third of the posterior horn. In addition, there was grade 2 chondral flap of the central portion of the femoral epicondyle in a 10 x 10 area. The medial compartment demonstrated complete loss of articular cartilage in the medial femoral condyle and medial tibial plateau with the exception of an island posteriorly. There was approximately 10 x 10 mm in size. There was a degenerative tear involving approximately one-third of the posterior horn of the medial meniscus. DESCRIPTION OF PROCEDURE: After risks and benefits of the procedure were discussed and questions were answered and informed consent was signed and placed on chart, the operative site was confirmed in the preoperative holding initialed by surgeon. The patient was then transferred to the operating room and after adequate levels of general endotracheal anesthetic were obtained, a timeout was called, confirming the operative site. Examination under anesthesia was performed with the above findings noted. The left lower extremity was prepped and draped in the usual sterile fashion. Knee joint was injected with 60 mL fluid and standard inferolateral portal was placed under direct visualization and inferior medial portal was created. Due to inflow issues, an inflow cannula was placed superomedially. A diagnostic arthroscopy was carried out with above findings noted. The unstable chondral flaps in lateral femoral condyle were debrided with a shaver back to a stable edge. The posterior horn of the lateral meniscus was debrided with a shaver and a biter back to a stable edge. This was carefully probed with no further tearing or instability noted. The scope was redirected into the medial compartment where the posterior horn of the medial meniscus was debrided with a shaver back to a stable edge. This was carefully probed with no further tearing or instability noted. The knee was copiously irrigated. Port sites were closed with 4-0 nylon in simple interrupted fashion. The knee was injected with Duramorph. The port sites were infiltrated with plain Marcaine. A soft dressing was applied. The patient was transferred to the recovery room awake and in stable condition. Job ID: [id number] DocumentID: [id number] Dictated Date: 08/11/2022 09:28:10 Software Tools Engineer Date: 08/11/2022 16:27:00 Dictated By: RANDY WARREN MD
== END 2022-08-11 11:15 | disposition home or self-care (01) ==
LOC: SDC 07:13
PROVIDERS: ATTEND Orthopaedic Surgery
DX: M23.352 Other meniscus derangements, posterior horn of lateral meniscus, left knee (principal); M23.322 Other meniscus derangements, posterior horn of medial meniscus, left knee; M22.42 Chondromalacia patellae, left knee; G47.33 Obstructive sleep apnea (adult) (pediatric); E66.9 Obesity, unspecified; Z68.38 Body mass index [BMI] 38.0-38.9, adult
CPT/HCPCS: 82947; 87081

== ENCOUNTER → 2023-02-15 | Outpatient (CLI) | payer BC ==
[~2023-02-15] MED LIST changes: -MECL-149 PO; +MECL-291 PO; -POTA10CA44 PO; +POTA10CA84 PO
== END ==
LOC: RAD 13:30
PROVIDERS: ATTEND Internal Medicine Gastroenterology
DX: Z53.9 Procedure and treatment not carried out, unspecified reason (principal)